=== PATIENT | male | born 1950 | race Caucasian/White ===

== ENCOUNTER 2017-04-23 13:14 | Observation (INO) | payer MEDICARE, MEDICAID ==
[2017-04-23 13:40] LABS: CHLORIDE,CL 106 mEq/L (98-106); SODIUM,NA 143 mEq/L (136-145)
--- NOTE | 2017-04-23 13:41 | EDM.PDOC ---
ED HPI GENERAL MEDICAL PROBLEM - General Chief Complaint: Neuro Symptoms/Deficits Stated Complaint: seizure activity Time Seen by Provider: 04/23/17 13:20 Source of Information: Reports: Patient, Family History Limitations: Reports: Altered Mental Status - History of Present Illness INITIAL COMMENTS - FREE TEXT/NARRATIVE: Patient presents today per EMS after a seizure at home. states he was in the bathroom brushing his teeth and when she hollered to him to see if he was ready to go to therapy, he didn't respond. When she got to the bathroom, he had a blank stare and didn't respond. She lowered him to the floor and he had a tonic clonic 4 minute seizure. On EMS arrival, he remained unresponsive, jaw was clenched. Sats were in the 80s. A nasal airway was inserted and started on 15 liters of oxygen by mask. On arrival here, patient starting to arouse. Opens eyes and talks to me but is disoriented. Not aware of where he is at or what day or month it is. Does recognize and [id number] and nurse. relates he was taken off his Keppra a while ago by the neurologist as he did not feel it was needed anymore. Only complaint patient has at present, is that his tongue is numb. Onset: Today, Sudden Duration: Minutes: Location: Reports: Generalized Severity: Severe Associated Symptoms: Reports: Confusion, Weakness. Denies: Chest Pain, Cough, Nausea/Vomiting, Shortness of Breath Treatments [employer]: Reports: Oxygen - Related Data Allergies Allergy/AdvReac Type Severity Reaction Status Date / Time cephalexin Allergy Cannot Verified 04/23/17 14:01 Remember Home Meds: Home Meds Baclofen 5 mg PO BID 01/29/15 [History] Gabapentin [Neurontin] 300 mg PO BID 01/29/15 [History] Pantoprazole [ProTONIX] 40 mg PO ACBREAKFAST 01/29/15 [History] atorvaSTATin [Lipitor] 40 mg PO DAILY 01/29/15 [History] tiZANidine [Zanaflex] 4 mg PO BEDTIME 01/29/15 [History] traMADol HCl [Tramadol HCl] 50 mg PO BID PRN 01/29/15 [History] Ondansetron [Ondansetron ODT] 4 mg TOP Q4H PRN 03/01/15 [History] Albuterol [Proair HFA] 2 puff INH QID 10/18/15 [History] Ipratropium/Albuterol Sulfate [Iprat-Albut 0.5-3(2.5) MG/3 ML] 3 ml INH QID PRN 10/18/15 [History] Potassium Chloride 10 meq PO DAILY 10/18/15 [History] Sertraline HCl 75 mg PO BEDTIME 10/18/15 [History] levETIRAcetam [Levetiracetam] 500 mg PO BID 10/18/15 [History] Tamsulosin HCl [Flomax] 0.4 mg PO DAILY #7 cap.er.24h 10/31/15 [Rx] oxyCODONE HCl/Acetaminophen [Percocet 5-325 mg Tablet] 1 each PO Q6H PRN #30 tablet 10/31/15 [Rx] Past Medical History Respiratory History: Reports: Pneumonia, Recurrent Gastrointestinal History: Reports: GERD Other Musculoskeletal History: 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 Social & Family History - Family History Family Medical History: Noncontributory - Tobacco Use Smoking Status *Q: Former Smoker Years of Tobacco use: 40 Second Hand Smoke Exposure: No - Recreational Drug Use Recreational Drug Use: No ED ROS GENERAL - Review of Systems Review Of Systems: See Below Constitutional: Reports: Weakness. Denies: Fever HEENT: Reports: Other (tongue numbness). Denies: Ear Discharge, Ear Pain, Rhinitis, Sinus Problem, Throat Pain Respiratory: Denies: Shortness of Breath, Pleuritic Chest Pain, Cough Cardiovascular: Denies: Chest Pain, Edema, Lightheadedness Endocrine: Reports: Fatigue GI/Abdominal: Denies: Abdominal Pain, Nausea, Vomiting : Denies: Incontinence Musculoskeletal: Reports: No Symptoms Skin: Reports: No Symptoms Neurological: Reports: Confusion - Physical Exam Exam: See Below Exam Limited By: Altered Mental Status (initially patient groggy and disoriented but now answering questions.) General Appearance: Lethargic (patient doing better as time goes on in the ER) Eye Exam: Bilateral Eye: EOMI, PERRL Ears: Normal External Exam, Normal TMs Nose: Normal Inspection, Normal Mucosa, No Blood Throat/Mouth: Normal Inspection, Other (bruising/reddened areas noted to tip of tongue) Head Exam: Normocephalic Neck: Normal Inspection, Supple, Non-Tender Respiratory/Chest: No Respiratory Distress, Lungs Clear, Normal Breath Sounds Cardiovascular: Regular Rate, Rhythm GI/Abdominal: Normal Bowel Sounds, Soft, Non-Tender Neuro Exam (Abbreviated): Other (patient has previous deficits with right sided weakness due to previous CVA) Skin Exam: Warm, Dry Course - Vital Signs Last Recorded V/S: Last Vital Signs Temp 97.5 F 04/23/17 13:44 Pulse 72 04/23/17 13:44 Resp 20 04/23/17 13:44 BP 114/74 04/23/17 13:44 Pulse Ox 94 L 04/23/17 13:44 - Orders/Labs/Meds Orders: Active Orders 24 hr Category Date Time Status Head wo Cont [CT] Routine Exams 04/23/17 Ordered Labs: Laboratory Tests 04/23/17 04/23/17 04/23/17 Range/Units 13:13 13:13 13:25 WBC 10.7 H (5.0-10.0) 10^3/uL RBC 5.20 (4.50-6.00) 10^6/uL Hgb 15.5 (14.0-18.0) g/dL Hct 48.9 (40.0-54.0) % MCV 94.0 (82.0-94.0) fL MCH 29.8 (27.0-32.0) pg MCHC 31.7 L (33.0-38.0) g/dL RDW Coeff of [place] 13.5 (11.0-15.0) % Plt Count 246 (150-400) 10^3/uL Neut % (Auto) 58.7 (35-85) % Lymph % (Auto) 25.4 (10-55) % [place] % (Auto) 11.5 (0-16) % Eos % (Auto) 3.8 (0-5) % Baso % (Auto) 0.6 (0-3) % Neut # (Auto) 6.30 (1.80-7.00) 10^3/uL Lymph # (Auto) 2.72 (1.00-4.80) 10^3/uL [place] # (Auto) 1.23 H (0.00-0.80) 10^3/uL Eos # (Auto) 0.41 (0.00-0.45) 10^3/uL Baso # (Auto) 0.06 10^3/uL PT 10.7 (9.7-12.3) SEC INR 0.99 (0.92-1.18) APTT 24.2 L (24.5-30.9) SEC Sodium 143 (136-145) mEq/L Potassium 3.9 (3.5-5.0) mEq/L Chloride 106 (98-106) mEq/L Carbon Dioxide 22 (21-32) mmol/L BUN 15 (7-18) mg/dL Creatinine 1.4 H (0.7-1.3) mg/dL Est Cr Clr Drug Dosing 53.28 mL/min Estimated GFR (MDRD) 51 L (>=60) mL/min Glucose 90 (75-99) mg/dL Calcium 8.8 (8.4-10.1) mg/dL Creatine Kinase 69 (35-232) U/L Troponin I < 0.017 (0.00-0.06) ng/mL - Re-Assessments/Exams Free Text/Narrative Re-Assessment/Exam: 04/23/17 14:09 Lab results are negative. Awaiting CT report. Will admit observation, start him back on Keppra. Give him one dose of Valium IV to prevent further seizure activity. Departure - Departure Time of Disposition: 14:14 Disposition: Refer to Observation Condition: Fair Clinical Impression: Seizure - Discharge Information Forms: ED Department Discharge - Problem List & Annotations (1) Seizure SNOMED Code(s): 51675988 Code(s): R56.9 - UNSPECIFIED CONVULSIONS Status: Acute Priority: High Current Visit: Yes (2) COPD (chronic obstructive pulmonary disease) SNOMED Code(s): 43557357 Code(s): J44.9 - CHRONIC OBSTRUCTIVE PULMONARY DISEASE, UNSPECIFIED Status : Chronic Priority: Low Current Visit: Yes Qualifiers: COPD type: COPD with acute exacerbation Qualified Code(s): J44.1 - Chronic obstructive pulmonary disease with (acute) exacerbation (3) Status post stroke SNOMED Code(s): 233303701 Code(s): Z86.73 - PRSNL HX OF TIA (TIA), AND CEREB INFRC W/O RESID DEFICITS Status: Chronic Priority: Medium Current Visit: Yes - Problem List Review Problem List Initiated/Reviewed/Updated: Yes - My Orders Last 24 Hours: My Active Orders 04/23/17 Head wo Cont [CT] Routine - Assessment/Plan Admission H&P: Please use this note as an admission H&P Last 24 Hours: My Active Orders 04/23/17 Head wo Cont [CT] Routine Assessment:: Acute seizure activity Plan: Admitted to observation to Dr. Hunter for neurological monitoring. Will start him back on his Keppra, give him a dose of IV Valium. Continue to follow.
[2017-04-23] MEDS: levETIRAcetam 500 MG Tab PO SCH ×2 (15:09→20:18)
[2017-04-23] MEDS ORDERED: Sodium Chloride 0.9% 10 ML Syringe FLUSH PRN (16:11)
[2017-04-23] MEDS ORDERED: Ondansetron 4 MG Tab.DIS PO PRN (16:11)
[2017-04-23] MEDS ORDERED: traMADol 50 MG Tab PO PRN (18:30)
[2017-04-23] MEDS ORDERED: Albuterol/Ipratropium 3.0-0.5 MG/3 ML Neb Soln INH PRN (18:30)
[2017-04-23] MEDS ORDERED: Acetaminophen/oxyCODONE 325-5 MG Tab PO PRN (18:30)
[2017-04-23] MEDS ORDERED: Albuterol 8 GM Inhaler INH PRN (18:30)
[2017-04-23] MEDS ORDERED: tiZANidine 4 MG Tab PO SCH (20:00)
[2017-04-23] MEDS ORDERED: Sertraline 25 MG Tab PO SCH (20:00)
[2017-04-23] MEDS: Gabapentin 100 MG Cap PO SCH (20:15)
[2017-04-23] MEDS: Baclofen 10 MG Tab PO SCH (20:16)
[2017-04-24] MEDS ORDERED: Pantoprazole 40 MG Tab.CR PO SCH (07:00)
[2017-04-24] MEDS ORDERED: Formoterol/Mometasone 200-5 MCG 8.8 GM Inhaler IH SCH (08:00)
[2017-04-24] MEDS ORDERED: atorvaSTATin 20 MG Tab PO SCH (08:00)
[2017-04-24] MEDS ORDERED: Polyethylene Glycol 3350 Powder 17 GM Packet PO SCH (08:00)
[2017-04-24 08:18] VITALS: BP 119/81
[2017-04-24] MEDS: levETIRAcetam 500 MG Tab PO SCH (08:28)
[2017-04-24] MEDS: Baclofen 10 MG Tab PO SCH (08:29)
[2017-04-24] MEDS: Gabapentin 100 MG Cap PO SCH (08:30)
[2017-04-24] MEDS ORDERED: FLU Vacc QS 2017-18 (36mos UP)/PF 60 MCG/0.5 ML Syringe IM ONE (08:44)
--- NOTE | 2017-04-26 20:04 | PCM.DCSUM1 ---
Discharge Summary - Hospital Course Free Text/Narrative:: Patient admitted to observation after a grand mal seizure that occurred at home. Patient has a history of seizure activity. Previously on Keppra but had weaning off of it as relates that the neurologist did not feel patient would need to be on it any longer. He had taken his last Keppra one week ago. related that he had been in the bathroom getting ready to go to [facility] for therapy. She called to him and got no response. When she arrived in the bathroom, he had a blank stare. Was able to lower him to the ground and he had 4-5 minutes of tonic clonic activity. Patient postictal on arrival to the ED. Labs negative, CT negative. Given Valium 5 mg IV and admitted for neurological monitoring. Started back on Keppra. - Discharge Data Discharge Date: 04/24/17 Discharge Disposition: Home, Self-Care 01 Condition: Good - Discharge Diagnosis/Problem(s) (1) Seizure SNOMED Code(s): 12250692 ICD Code: R56.9 - UNSPECIFIED CONVULSIONS Status: Acute Priority: High (2) COPD (chronic obstructive pulmonary disease) SNOMED Code(s): 72883654 ICD Code: J44.9 - CHRONIC OBSTRUCTIVE PULMONARY DISEASE, UNSPECIFIED Status : Chronic Priority: Low Qualifiers: COPD type: COPD with acute exacerbation Qualified Code(s): J44.1 - Chronic obstructive pulmonary disease with (acute) exacerbation (3) Status post stroke SNOMED Code(s): 193327525 ICD Code: Z86.73 - PRSNL HX OF TIA (TIA), AND CEREB INFRC W/O RESID DEFICITS Status: Chronic Priority: Medium - Patient Summary/Data Complications: none Hospital Course: Patient has no recall of events at home or in the ER but is feeling good this am. Did bite his tongue and states it is sore now. Otherwise, denies any new concerns today. Neuro checks have been stable in comparison to his normal, history of previous CVA. Will continue on Keppra, discharge home today. - Patient Instructions Diet: Usual Diet as Tolerated Activity: As Tolerated - Discharge Plan Prescriptions/Med Rec: levETIRAcetam [Keppra] 500 mg PO BID #60 tablet Home Medications: Home Meds Baclofen 5 mg PO BID 01/29/15 [History] Gabapentin [Neurontin] 200 mg PO BID 01/29/15 [History] Pantoprazole [ProTONIX] 40 mg PO ACBREAKFAST 01/29/15 [History] atorvaSTATin [Lipitor] 40 mg PO DAILY 01/29/15 [History] tiZANidine [Zanaflex] 4 mg PO BEDTIME 01/29/15 [History] traMADol HCl [Tramadol HCl] 50 mg PO BID PRN 01/29/15 [History] Ondansetron [Ondansetron ODT] 4 mg TOP Q4H PRN 03/01/15 [History] Ipratropium/Albuterol Sulfate [Iprat-Albut 0.5-3(2.5) MG/3 ML] 3 ml INH QID PRN 10/18/15 [History] Sertraline HCl 75 mg PO BEDTIME 10/18/15 [History] oxyCODONE HCl/Acetaminophen [Percocet 5-325 mg Tablet] 1 each PO Q6H PRN #30 tablet 10/31/15 [Rx] Albuterol [Ventolin HFA] 2 inh INH Q4H PRN 04/23/17 [History] Fluticasone/Vilanterol [Breo Ellipta 200-25 MCG Inhalation Kit] 1 inh INH DAILY 04/23/17 [History] Polyethylene Glycol 3350 [Miralax] 8 gm PO DAILY 04/23/17 [History] levETIRAcetam [Keppra] 500 mg PO BID #60 tablet 04/24/17 [Rx] Forms: ED Department Discharge Referrals: Deshawn Hunter MD [Primary Care Provider] - - Discharge Summary/Plan Comment DC Time >30 min.: No Discharge Summary/Plan Comment: Discharge home on Keppra 500 mg twice a day. Follow up with Dr. Hunter in one week. Continue PT as outpatient as previously planned. - General Info Date of Service: 04/24/17 Admission Dx/Problem (Free Text: Seizure Functional Status: Reports: Pain Controlled, Tolerating Diet, Ambulating - Review of Systems General: Reports: Weakness HEENT: Reports: No Symptoms Pulmonary: Denies: Shortness of Breath, Cough Cardiovascular: Denies: Chest Pain, Edema, Lightheadedness Gastrointestinal: Denies: Abdominal Pain, Nausea, Vomiting Genitourinary: Reports: No Symptoms Musculoskeletal: Reports: Other (chronic weakness due to past CVA) - Patient Data Vitals - Most Recent: Last Vital Signs Temp 97.2 F 04/24/17 08:00 Pulse 75 04/24/17 08:00 Resp 19 04/24/17 08:00 BP 119/81 04/24/17 08:00 Pulse Ox 93 L 04/24/17 08:00 Weight - Most Recent: 160 lb Med Orders - Current: Current Medications Discontinued Medications Albuterol (Ventolin Hfa) 0 gm INH Q4H PRN PRN Reason: Shortness of Breath Albuterol/Ipratropium (Duoneb 3.0-0.5 Mg/3 Ml) 3 ml INH QID PRN PRN Reason: Shortness of Breath Atorvastatin Calcium (Lipitor) 40 mg PO DAILY [facility] Last Admin: 04/24/17 08:29 Dose: Not Given Baclofen (Lioresal) 5 mg PO BID [facility] Last Admin: 04/24/17 08:29 Dose: Not Given Diazepam (Valium) 5 mg IVPUSH ONETIME ONE Stop: 04/23/17 14:11 Last Admin: 04/23/17 14:30 Dose: 5 mg Gabapentin (Neurontin) 200 mg PO BID [facility] Last Admin: 04/24/17 08:30 Dose: Not Given Influenza Virus Vaccine (Fluzone Quad [id number]) 60 mcg IM .ONCE ONE Stop: 04/24/17 08:45 Last Admin: 04/24/17 09:40 Dose: 60 mcg Levetiracetam (Keppra) 500 mg PO BID [facility] Last Admin: 04/24/17 08:28 Dose: Not Given Mometasone Furoate/Formoterol Fumar (Dulera 200-5 Mcg) 0 puff IH BIDRT [facility] Last Admin: 04/24/17 08:27 Dose: Not Given Ondansetron HCl (Zofran Odt) 4 mg PO Q4H PRN PRN Reason: nausea, able to take PO Oxycodone/Acetaminophen (Percocet 325-5 Mg) 1 tab PO Q6H PRN PRN Reason: Pain Pantoprazole Sodium (Protonix) 40 mg PO ACBREAKFAST [facility] Last Admin: 04/24/17 08:27 Dose: Not Given Polyethylene Glycol (Miralax) 8 gm PO DAILY [facility] Last Admin: 04/24/17 08:30 Dose: Not Given Sertraline HCl (Zoloft) 75 mg PO BEDTIME [facility] Last Admin: 04/23/17 20:19 Dose: 75 mg Sodium Chloride (Saline Flush) 10 ml FLUSH ASDIRECTED PRN PRN Reason: Keep Vein Open Tizanidine HCl (Zanaflex) 4 mg PO BEDTIME [facility] Last Admin: 04/23/17 20:18 Dose: 4 mg Tramadol HCl (Ultram) 50 mg PO BID PRN PRN Reason: Pain - Exam General: Reports: Alert, Oriented HEENT: Reports: Mucous Membr. Moist/[place] Neck: Reports: Supple Lungs: Reports: Clear to Auscultation, Normal Respiratory Effort Cardiovascular: Reports: Regular Rate, Regular Rhythm GI/Abdominal Exam: Normal Bowel Sounds, Soft, Non-Tender Skin: Reports: Warm, Dry Neurological: Reports: No New Focal Deficit *Q Meaningful Use (DIS) - VTE *Q VTE Criteria *Q: - Stroke *Q Stroke Criteria *Q: - AMI *Q AMI Criteria *Q:
== END 2017-04-24 10:20 | disposition home or self-care (01) ==
LOC: CC.ED 13:14 → UNDOADMOB 14:08 → CC.MS 14:08
PROVIDERS: ADMIT Physician Assistant Medical; ATTEND Family Medicine
DX: R56.9 Unspecified convulsions (principal); J44.1 Chronic obstructive pulmonary disease with (acute) exacerbation; K21.9 Gastro-esophageal reflux disease without esophagitis; I69.354 Hemiplegia and hemiparesis following cerebral infarction affecting left non-dominant side; Z79.899 Other long term (current) drug therapy; Z79.51 Long term (current) use of inhaled steroids; Z88.1 Allergy status to other antibiotic agents; Z87.891 Personal history of nicotine dependence; Z23 Encounter for immunization
CPT/HCPCS: 36415; 70450; 80048; 82550; 84484; 85025; 85610; 85730; 93005; 93010; 96374; 99217; 99220; 99285; A9270; G0378; J3360; 90686; G0008

== ENCOUNTER 2017-08-28 11:30 | Emergency (ER) | payer MEDICARE, MEDICAID ==
[~2017-08-28 11:30] MED LIST: Albuterol/Ipratropium 3.0-0.5 MG/3 ML Neb Soln ONE
[2017-08-28] MEDS ORDERED: Albuterol/Ipratropium 3.0-0.5 MG/3 ML Neb Soln INH ONE (11:31)
[2017-08-28] MEDS ORDERED: Racepinephrine 2.25% 0.5 ML Neb Soln INH ONE (11:31)
[2017-08-28] MEDS ORDERED: Racepinephrine 2.25% 0.5 ML Neb Soln ONE ×2 (11:33→11:56)
[2017-08-28] MEDS ORDERED: Albuterol/Ipratropium 3.0-0.5 MG/3 ML Neb Soln ONE ×3 (11:36→12:13)
[2017-08-28] MEDS ORDERED: Sodium Chloride 0.9% 1,000 ML ONE ×2 (11:48→11:49)
[2017-08-28 11:53] LABS: O2 DELIVERY DEVICE NON REBR MASK
[2017-08-28] MEDS: Sodium Chloride 0.9% 500 ML IV SCH ×2 (12:00→13:00)
[2017-08-28] MEDS ORDERED: Piperacillin/Tazobactam 3.375 GM in Sodium Chloride 0.9% 50 ML IV SCH (12:00)
[2017-08-28 12:10] LABS: CHLORIDE,CL 105 mEq/L (98-106); SODIUM,NA 143 mEq/L (136-145)
[2017-08-28 12:11] LABS: BICARBONATE,ARTERIAL 25.9 mm/L (22.0-26.0); O2 SATURATION ARTERIAL 93 % (95-98); PCO2 ARTERIAL 70 mm/Hg0 (35-45); PO2 ARTERIAL 85 mm/Hg (80-100)
--- NOTE | 2017-08-28 12:41 | EDM.PDOC ---
ED HPI GENERAL MEDICAL PROBLEM - General Chief Complaint: General Stated Complaint: code Time Seen by Provider: 08/28/17 11:30 Source of Information: Reports: EMS, Family History Limitations: Reports: Respiratory Distress - History of Present Illness INITIAL COMMENTS - FREE TEXT/NARRATIVE: Damion is a 67 year old male with PMH of asthma, depression, GERD, CVA, hypertension, and hyperlipidemia who presents to the ED via [facility] after suspected respiratory arrest. His reports he has had some respiratory issues since about Thursday. She reports they were in to the clinic yesterday and he was started on Cipro, steroids, and nebulizers. She reports that at baseline he uses his inhaler for asthma once weekly. She reports he has been more wheezy than normal and has had a productive cough. He has been using his nebulizers three times daily the past few days. He has not had a fever, chills, chest pain, sore throat. He has had a productive cough. Denies any smoking history. reports that this morning he got progressively worse. She reports he was more wheezy and began struggling to breathe. She reports she called the clinic and all of a sudden Damion became unresponsive and "blue." She reports he was not breathing at all so she started CPR and called 911. Upon EMS arrival, patient was very cyanotic, but did have a pulse. O2 sats upon arrival were 80%. He did receive 2 Duonebs and 125 mg Solumedrol enroute with EMS. Upon initial ED presentation he appears in respiratory distress. He is maintaining O2 sat of 90% on 15 L nonrebreather. He has accessory muscle use and audible wheezing. Onset: Today, Sudden Onset Date: 08/28/17 Onset Time: 10:45 Duration: Getting Worse Associated Symptoms: Reports: Chest Pain, Cough, cough w sputum, Diaphoresis, Headaches, Nausea/Vomiting, Shortness of Breath, Weakness. 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: See EMS Report - Related Data Allergies Allergy/AdvReac Type Severity Reaction Status Date / Time cephalexin Allergy Cannot Verified 04/23/17 14:01 Remember Home Meds: Home Meds Baclofen 5 mg PO BID 01/29/15 [History] Gabapentin [Neurontin] 200 mg PO BID 01/29/15 [History] Pantoprazole [ProTONIX] 40 mg PO ACBREAKFAST 01/29/15 [History] atorvaSTATin [Lipitor] 40 mg PO DAILY 01/29/15 [History] tiZANidine [Zanaflex] 4 mg PO BEDTIME 01/29/15 [History] traMADol HCl [Tramadol HCl] 50 mg PO BID PRN 01/29/15 [History] Ondansetron [Ondansetron ODT] 4 mg TOP Q4H PRN 03/01/15 [History] Ipratropium/Albuterol Sulfate [Iprat-Albut 0.5-3(2.5) MG/3 ML] 3 ml INH QID PRN 10/18/15 [History] Sertraline HCl 75 mg PO BEDTIME 10/18/15 [History] oxyCODONE HCl/Acetaminophen [Percocet 5-325 mg Tablet] 1 each PO Q6H PRN #30 tablet 10/31/15 [Rx] Albuterol [Ventolin HFA] 2 inh INH Q4H PRN 04/23/17 [History] Fluticasone/Vilanterol [Breo Ellipta 200-25 MCG Inhalation Kit] 1 inh INH DAILY 04/23/17 [History] Polyethylene Glycol 3350 [Miralax] 8 gm PO DAILY 04/23/17 [History] levETIRAcetam [Keppra] 500 mg PO BID #60 tablet 04/24/17 [Rx] Past Medical History Respiratory History: Reports: Pneumonia, Recurrent Gastrointestinal History: Reports: GERD Other Musculoskeletal History: 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 Social & Family History - Family History Family Medical History: Noncontributory - Caffeine Use Caffeine Use: Reports: None ED ROS GENERAL - Review of Systems Review Of Systems: See Below Constitutional: Reports: Fatigue, Diaphoresis. Denies: Fever, Chills, Weakness HEENT: Reports: No Symptoms. Denies: Ear Pain, Rhinitis, Sinus Problem, Throat Pain, Throat Swelling Respiratory: Reports: Shortness of Breath, Wheezing, Pleuritic Chest Pain, Cough , Sputum, Other (respiratory distress, tachypnea). Denies: Hemoptysis Cardiovascular: Reports: Dyspnea on Exertion, Orthopnea. Denies: Chest Pain, Edema, Lightheadedness, Palpitations, Syncope Endocrine: Reports: No Symptoms GI/Abdominal: Reports: Decreased Appetite, Nausea, Vomiting. Denies: Abdominal Pain, Constipation, Diarrhea, Hematemesis : Reports: No Symptoms. Denies: Frequency, Urgency Musculoskeletal: Reports: No Symptoms Skin: Reports: Diaphoresis Neurological: Reports: Confusion, Headache, Weakness. Denies: Dizziness, Numbness, Syncope, Tingling Psychiatric: Reports: No Symptoms Hematologic/Lymphatic: Reports: No Symptoms Immunologic: Reports: No Symptoms ED EXAM, GENERAL - Physical Exam Exam: See Below Exam Limited By: Respiratory Distress General Appearance: Alert, Anxious, Severe Distress Eye Exam: Bilateral Eye: EOMI, Normal Fundi, Normal Inspection, PERRL Nose: Nasal Flaring Throat/Mouth: Normal Inspection, Normal Lips, Normal Teeth, Normal Gums, Normal Oropharynx, Normal Voice, No Airway Compromise Head: Atraumatic, Normocephalic Neck: Normal Inspection, Supple, Non-Tender, Full Range of Motion Respiratory/Chest: Respiratory Distress, Decreased Breath Sounds, Crackles, Wheezing, Accessory Muscle Use, Retractions Cardiovascular: Normal Peripheral Pulses, No Edema, No Murmur, Tachycardia GI/Abdominal: Normal Bowel Sounds, Soft, Non-Tender, No Organomegaly, No Distention, No Abnormal Bruit, No Mass Extremities: Normal Inspection, Normal Range of Motion, Non-Tender, Normal Capillary Refill, No Pedal Edema Neurological: Alert, Oriented Psychiatric: Anxious Skin Exam: Intact, Diaphoretic Lymphatic: No Adenopathy Course - Orders/Labs/Meds Labs: Laboratory Tests 08/28/17 08/28/17 08/28/17 Range/Units 11:40 11:40 11:40 WBC 17.5 H (5.0-10.0) 10^3/uL RBC 5.01 (4.50-6.00) 10^6/uL Hgb 14.9 (14.0-18.0) g/dL Hct 47.0 (40.0-54.0) % MCV 93.8 (82.0-94.0) fL MCH 29.7 (27.0-32.0) pg MCHC 31.7 L (33.0-38.0) g/dL RDW Coeff of Felecia 13.7 (11.0-15.0) % Plt Count 247 (150-400) 10^3/uL Neut % (Auto) 70.7 (35-85) % Lymph % (Auto) 15.0 (10-55) % [place] % (Auto) 10.6 (0-16) % Eos % (Auto) 3.4 (0-5) % Baso % (Auto) 0.3 (0-3) % Neut # (Auto) 12.37 H (1.80-7.00) 10^3/uL Lymph # (Auto) 2.63 (1.00-4.80) 10^3/uL [place] # (Auto) 1.86 H (0.00-0.80) 10^3/uL Eos # (Auto) 0.60 H (0.00-0.45) 10^3/uL Baso # (Auto) 0.05 10^3/uL D-Dimer, Quantitative 2.29 H (0.00-0.50) ABG pH (7.35-7.45) ABG pCO2 (35-45) mm/Hg0 ABG pO2 (80-100) mm/Hg ABG HCO3 (22.0-26.0) mm/L ABG O2 Saturation (95-98) % ABG Base Excess (-2.0-3.0) O2 Delivery Device Oxygen Flow Rate Sodium 143 (136-145) mEq/L Potassium 3.9 (3.5-5.0) mEq/L Chloride 105 (98-106) mEq/L Carbon Dioxide 25 (21-32) mmol/L BUN 18 (7-18) mg/dL Creatinine 1.3 (0.7-1.3) mg/dL Est Cr Clr Drug Dosing TNP Estimated GFR (MDRD) 55 L (>=60) mL/min Glucose 147 H D (75-99) mg/dL Calcium 8.6 (8.4-10.1) mg/dL Total Bilirubin 0.8 (0.0-1.0) mg/dL AST 78 H (15-37) U/L ALT 134 H (12-78) U/L Alkaline Phosphatase 102 (46-116) U/L Lactate Dehydrogenase 367 H (100-190) U/L Creatine Kinase 134 (35-232) U/L Troponin I < 0.017 (0.00-0.06) ng/mL C-Reactive Protein 2.2 H (0.2-0.8) mg/dL NT-Pro-B Natriuret Pep 32 (0-1000) pg/mL Total Protein 7.4 (6.4-8.2) g/dL Albumin 3.8 (3.4-5.0) g/dL 08/28/17 Range/Units 11:51 WBC (5.0-10.0) 10^3/uL RBC (4.50-6.00) 10^6/uL Hgb (14.0-18.0) g/dL Hct (40.0-54.0) % MCV (82.0-94.0) fL MCH (27.0-32.0) pg MCHC (33.0-38.0) g/dL RDW Coeff of Felecia (11.0-15.0) % Plt Count (150-400) 10^3/uL Neut % (Auto) (35-85) % Lymph % (Auto) (10-55) % [place] % (Auto) (0-16) % Eos % (Auto) (0-5) % Baso % (Auto) (0-3) % Neut # (Auto) (1.80-7.00) 10^3/uL Lymph # (Auto) (1.00-4.80) 10^3/uL [place] # (Auto) (0.00-0.80) 10^3/uL Eos # (Auto) (0.00-0.45) 10^3/uL Baso # (Auto) 10^3/uL D-Dimer, Quantitative (0.00-0.50) ABG pH 7.17 L (7.35-7.45) ABG pCO2 70 H (35-45) mm/Hg0 ABG pO2 85 (80-100) mm/Hg ABG HCO3 25.9 (22.0-26.0) mm/L ABG O2 Saturation 93 L (95-98) % ABG Base Excess -3.0 L (-2.0-3.0) O2 Delivery Device Non rebr mask Oxygen Flow Rate 10.0 Sodium (136-145) mEq/L Potassium (3.5-5.0) mEq/L Chloride (98-106) mEq/L Carbon Dioxide (21-32) mmol/L BUN (7-18) mg/dL Creatinine (0.7-1.3) mg/dL Est Cr Clr Drug Dosing Estimated GFR (MDRD) (>=60) mL/min Glucose (75-99) mg/dL Calcium (8.4-10.1) mg/dL Total Bilirubin (0.0-1.0) mg/dL AST (15-37) U/L ALT (12-78) U/L Alkaline Phosphatase (46-116) U/L Lactate Dehydrogenase (100-190) U/L Creatine Kinase (35-232) U/L Troponin I (0.00-0.06) ng/mL C-Reactive Protein (0.2-0.8) mg/dL NT-Pro-B Natriuret Pep (0-1000) pg/mL Total Protein (6.4-8.2) g/dL Albumin (3.4-5.0) g/dL Meds: Medications Discontinued Medications Generic Name Dose Route Start Last Admin Trade Name Canq PRN Reason Stop Dose Admin Albuterol/Ipratropium Confirm 08/28/17 11:25 08/28/17 12:52 Duoneb 3.0-0.5 Mg/3 Ml Administered 08/28/17 11:26 Not Given Dose 3 ml .ROUTE .STK-MED ONE Albuterol/Ipratropium Confirm 08/28/17 11:36 08/28/17 12:51 Duoneb 3.0-0.5 Mg/3 Ml Administered 08/28/17 11:37 Not Given Dose 3 ml .ROUTE .STK-MED ONE Albuterol/Ipratropium Confirm 08/28/17 11:43 08/28/17 12:51 Duoneb 3.0-0.5 Mg/3 Ml Administered 08/28/17 11:44 Not Given Dose 3 ml .ROUTE .STK-MED ONE Albuterol/Ipratropium Confirm 08/28/17 12:13 08/28/17 12:51 Duoneb 3.0-0.5 Mg/3 Ml Administered 08/28/17 12:14 Not Given Dose 3 ml .ROUTE .STK-MED ONE Albuterol/Ipratropium 3 ml 08/28/17 12:56 08/28/17 11:35 Duoneb 3.0-0.5 Mg/3 Ml NEB 3 ml ASDIRECTED PRN Administration Dyspnea Albuterol/Ipratropium 27 ml 08/28/17 11:31 Duoneb 3.0-0.5 Mg/3 Ml INH 08/28/17 11:32 .STK-MED ONE Piperacillin Sod/Tazobactam 50 mls @ 100 mls/hr 08/28/17 12:00 08/28/17 12:20 Sod 3.375 gm/ Sodium Chloride IV 100 mls/hr Q6H HIRAM Administration Vancomycin HCl 2 gm/ Sodium 250 mls @ 167 mls/hr 08/28/17 11:56 08/28/17 12: 20 Chloride IV 08/28/17 13:25 167 mls/hr ONETIME ONE Administration Sodium Chloride 500 mls @ 500 mls/hr 08/28/17 12:00 08/28/17 13:00 Normal Saline IV 500 mls/hr .BOLUS HIRAM Administration Sodium Chloride Confirm 08/28/17 11:48 08/28/17 12:51 Normal Saline Administered 08/28/17 11:49 Not Given Dose 1,000 mls @ as directed .ROUTE .STK-MED ONE Sodium Chloride Confirm 08/28/17 11:49 08/28/17 12:51 Normal Saline Administered 08/28/17 11:50 Not Given Dose 1,000 mls @ as directed .ROUTE .STK-MED ONE Racepinephrine Confirm 08/28/17 11:33 08/28/17 12:51 S-2 2.25% Administered 08/28/17 11:34 Not Given Dose 0.5 ml .ROUTE .STK-MED ONE Racepinephrine Confirm 08/28/17 11:56 08/28/17 12:51 S-2 2.25% Administered 08/28/17 11:57 Not Given Dose 0.5 ml .ROUTE .STK-MED ONE Racepinephrine 0.5 ml 08/28/17 12:55 08/28/17 11:40 S-2 2.25% NEB 0.5 ml ASDIRECTED PRN Administration Shortness of Breath Racepinephrine 1 ml 08/28/17 11:31 S-2 2.25% INH 08/28/17 11:32 .STK-MED ONE Sodium Chloride 2,000 ml 08/28/17 11:31 Normal Saline IV 08/28/17 11:32 .STK-MED ONE - Re-Assessments/Exams Free Text/Narrative Re-Assessment/Exam: Patient comes in in severe respiratory distress. He did receive 125 mg solumedrol and a Duoneb enroute with EMS. Patient on 15 L O2 via nonrebreather throughout stay. Patient was given continuous Duonebs as well as multiple doses of racemic epinephrine. We did attempt CPAP for a short time, but patient decompensated so 15 L O2 and continuous Duonebs were restarted. Throughout entire ED stay, patient was alert and oriented. He was given NS fluid bolus 500 mL x2. He also recieved doses of Vancomycin and Zosyn. [facility] provider called for accepting physician and [facility]. Dr. Marie (Hospitalist at [facility]) accepted patient for transfer. Chest Xray reveals no acute processes. [facility] was consulted. Please see their documentation as well for further clarification on timing of interventions and accepting provider. Labs show significant leukocytosis of 17.5. ABGs reveal pH 7.17, pCO2 70.3, pO2 85, bicarb 25.9. Troponin is negative. D-dimer is elevated. No hx of DVT or PE. Patient not stable enough for CT scan during stay. Given presentation, I do not feel PE is cause of respiratory distress. Risks and benefits of transfer were discussed with patient and . Risks of transfer include worsening of condition, , and helicopter crash enroute. Benefits of transfer include higher level of care and intensive care unit if needed. Risks of nontransfer include worsening of condition, , and nonspecialized care. Benfits of nontransfer include familiar environment, close to home, and convenience. Patient and voiced understanding and were agreeable to transfer via [facility]. Departure - Departure Time of Disposition: 13:00 Disposition: DC/Tfer to Acute Hospital 02 Condition: Serious Clinical Impression: Elevated d-dimer, Acute respiratory acidosis, Acute respiratory failure Asthma exacerbation Qualifiers: Asthma severity: severe Asthma persistence: unspecified Qualified Code(s): J45.901 - Unspecified asthma with (acute) exacerbation Leukocytosis Qualifiers: Leukocytosis type: unspecified Qualified Code(s): D72.829 - Elevated white blood cell count, unspecified - Discharge Information Referrals: Deshawn Hnuter MD [Primary Care Provider] - Forms: ED Department Discharge - Problem List & Annotations (1) Asthma exacerbation SNOMED Code(s): 180270635 Code(s): J45.901 - UNSPECIFIED ASTHMA WITH (ACUTE) EXACERBATION Status: Acute Qualifiers: Asthma severity: severe Asthma persistence: unspecified Qualified Code(s) : J45.901 - Unspecified asthma with (acute) exacerbation (2) Acute respiratory acidosis SNOMED Code(s): 63267187 Code(s): E87.2 - ACIDOSIS Status: Acute (3) Elevated d-dimer SNOMED Code(s): 988902697 Code(s): R79.89 - OTHER SPECIFIED ABNORMAL FINDINGS OF BLOOD CHEMISTRY Status: Acute (4) Leukocytosis SNOMED Code(s): 193290694, 753970620 Code(s): D72.829 - ELEVATED WHITE BLOOD CELL COUNT, UNSPECIFIED Status: Acute Qualifiers: Leukocytosis type: unspecified Qualified Code(s): D72.829 - Elevated white blood cell count, unspecified (5) Acute respiratory failure SNOMED Code(s): 21156960 Code(s): J96.00 - ACUTE RESPIRATORY FAILURE, UNSP W HYPOXIA OR HYPERCAPNIA Status: Acute Qualifiers: Respiratory failure complication: hypoxia Qualified Code(s): J96.01 - Acute respiratory failure with hypoxia - Problem List Review Problem List Initiated/Reviewed/Updated: Yes - Assessment/Plan Plan: Patient will be transferred to [facility] via [facility]. Stable at time of discharge. Oxygenating well with continuous DuoNebs and 15 L NRB. Care resumed to Flight [facility].
[2017-08-28] MEDS ORDERED: Racepinephrine 2.25% 0.5 ML Neb Soln NEB PRN (12:55)
[2017-08-28] MEDS ORDERED: Albuterol/Ipratropium 3.0-0.5 MG/3 ML Neb Soln NEB PRN (12:56)
== END 2017-08-28 13:20 ==
LOC: CC.ED 11:30
DX: J96.00 Acute respiratory failure, unspecified whether with hypoxia or hypercapnia (principal); J45.901 Unspecified asthma with (acute) exacerbation; D72.829 Elevated white blood cell count, unspecified; R79.1 Abnormal coagulation profile; E87.2 Acidosis; Z79.899 Other long term (current) drug therapy; Z88.1 Allergy status to other antibiotic agents; Z87.01 Personal history of pneumonia (recurrent); K21.9 Gastro-esophageal reflux disease without esophagitis; Z86.73 Personal history of transient ischemic attack (TIA), and cerebral infarction without residual deficits
CPT/HCPCS: 36415; 36600; 71045; 80053; 82550; 82803; 83615; 83880; 84484; 85025; 85379; 86140; 87804; 93005; 94644; 94645; 96365; 99291; 99292; J2543; J3370; J7030; J7040; J7050

== ENCOUNTER 2018-07-20 14:32 | Observation (INO) | payer MEDICARE, MEDICAID ==
[2018-07-20] MEDS ORDERED: Levofloxacin/Dextrose 5%-Water 500 MG in Premix Bag 1 BAG IV ONE (14:53)
[2018-07-20] MEDS ORDERED: methylPREDNISolone Sodium Succinate 125 MG/2 ML SDV IVPUSH ONE (14:54)
[2018-07-20] MEDS ORDERED: Temazepam 15 MG Cap PO PRN (17:33)
[2018-07-20] MEDS ORDERED: Ondansetron 4 MG Tab.DIS PO PRN (17:33)
[2018-07-20] MEDS ORDERED: Acetaminophen 325 MG Tab PO PRN (17:33)
[2018-07-20] MEDS ORDERED: Ondansetron 4 MG/2 ML SDV IV PRN (17:33)
[2018-07-20] MEDS ORDERED: Sodium Chloride 0.9% 10 ML Syringe FLUSH PRN (17:33)
[2018-07-20] MEDS ORDERED: traMADol 50 MG Tab PO PRN (17:40)
[2018-07-20] MEDS ORDERED: Albuterol 8 GM Inhaler INH PRN (18:15)
[2018-07-20] MEDS: Pantoprazole 40 MG Vial IVPUSH SCH (18:29)
[2018-07-20] MEDS: Albuterol 0.083% 2.5 MG/3 ML Neb Soln NEB SCH ×3 (18:37→20:30)
[2018-07-20 18:38] LABS: CHLORIDE,CL 105 mEq/L (98-106); SODIUM,NA 140 mEq/L (136-145)
[2018-07-20] MEDS: BUDESONIDE INH SCH (20:17)
[2018-07-20] MEDS: [UNRECOGNIZED DRUG - OTHER] INH SCH (20:17)
[2018-07-20] MEDS: FORMOTEROL INH SCH (20:17)
[2018-07-20] MEDS: levETIRAcetam 500 MG Tab PO SCH (20:18)
[2018-07-20] MEDS: Baclofen 10 MG Tab PO SCH (20:19)
[2018-07-20] MEDS: Gabapentin 100 MG Cap PO SCH (20:20)
[2018-07-20] MEDS: [UNRECOGNIZED DRUG - OTHER] PO SCH (20:21)
[2018-07-20] MEDS: tiZANidine 4 MG Tab PO SCH (20:23)
[2018-07-20] MEDS: Enoxaparin 40 MG/0.4 ML Syringe SUBCUT SCH (20:31)
[2018-07-21] MEDS: Pantoprazole 40 MG Vial IVPUSH SCH ×2 (06:37→18:07)
[2018-07-21] MEDS: levETIRAcetam 500 MG Tab PO SCH ×2 (08:25→19:49)
[2018-07-21] MEDS: FORMOTEROL INH SCH ×2 (08:25→19:48)
[2018-07-21] MEDS: Gabapentin 100 MG Cap PO SCH ×2 (08:25→19:50)
[2018-07-21] MEDS: BUDESONIDE INH SCH ×2 (08:25→19:48)
[2018-07-21] MEDS: [UNRECOGNIZED DRUG - OTHER] INH SCH ×2 (08:25→19:48)
[2018-07-21] MEDS: Baclofen 10 MG Tab PO SCH ×2 (08:25→19:49)
[2018-07-21] MEDS: Potassium Chloride 10 MEQ Tab.ER PO SCH (08:26)
[2018-07-21] MEDS: Tiotropium Inhaler 18 MCG Inhalation Powder Cap Kit of 5 INH SCH (08:26)
[2018-07-21] MEDS: Polyethylene Glycol 3350 Powder 17 GM Packet PO SCH (08:29)
[2018-07-21] MEDS: Albuterol 0.083% 2.5 MG/3 ML Neb Soln NEB SCH ×4 (08:35→19:51)
--- NOTE | 2018-07-21 09:20 | PCM.PN ---
- General Info Date of Service: 07/21/18 Admission Dx/Problem (Free Text): Asthma Exacerbation Functional Status: Reports: Pain Controlled, Tolerating Diet, Ambulating - Review of Systems General: Reports: Weakness, Fatigue, Malaise. Denies: Fever HEENT: Reports: Sinus Congestion, Rhinitis Pulmonary: Reports: Shortness of Breath, Cough, Wheezing Cardiovascular: Denies: Chest Pain, Edema, Lightheadedness Gastrointestinal: Denies: Abdominal Pain, Nausea, Vomiting Genitourinary: Reports: No Symptoms Musculoskeletal: Reports: No Symptoms Skin: Reports: No Symptoms Neurological: Reports: Pre-Existing Deficit - Patient Data Vitals - Most Recent: Last Vital Signs Temp 98.4 F 07/21/18 08:00 Pulse 77 07/21/18 08:00 Resp 18 07/21/18 08:00 BP 123/66 07/21/18 08:00 Pulse Ox 94 L 07/21/18 08:00 Weight - Most Recent: 188 lb 12.8 oz Lab Results Last 24 Hours: Laboratory Results - last 24 hr 07/20/18 07/20/18 Range/Units 18:29 18:29 WBC 8.4 (5.0-10.0) 10^3/uL RBC 5.16 (4.50-6.00) 10^6/uL Hgb 15.3 (14.0-18.0) g/dL Hct 46.1 (40.0-54.0) % MCV 89.3 (82.0-94.0) fL MCH 29.7 (27.0-32.0) pg MCHC 33.2 (33.0-38.0) g/dL RDW Coeff of Felecia 13.9 (11.0-15.0) % Plt Count 194 (150-400) 10^3/uL Neut % (Auto) 87.6 H (35-85) % Lymph % (Auto) 7.8 L (10-55) % [place] % (Auto) 2.7 (0-16) % Eos % (Auto) 1.8 (0-5) % Baso % (Auto) 0.1 (0-3) % Neut # (Auto) 7.38 H (1.80-7.00) 10^3/uL Lymph # (Auto) 0.66 L (1.00-4.80) 10^3/uL Cecil # (Auto) 0.23 (0.00-0.80) 10^3/uL Eos # (Auto) 0.15 (0.00-0.45) 10^3/uL Baso # (Auto) 0.01 10^3/uL Sodium 140 (136-145) mEq/L Potassium 3.6 (3.5-5.0) mEq/L Chloride 105 (98-106) mEq/L Carbon Dioxide 28 (21-32) mmol/L BUN 12 (7-18) mg/dL Creatinine 1.2 (0.7-1.3) mg/dL Est Cr Clr Drug Dosing 61.68 mL/min Estimated GFR (MDRD) > 60 (>=60) mL/min Glucose 202 H D (75-99) mg/dL Calcium 8.5 (8.4-10.1) mg/dL C-Reactive Protein 5.0 H (0.2-0.8) mg/dL Med Orders - Current: Current Medications Acetaminophen (Tylenol) 650 mg PO Q4H PRN PRN Reason: Pain (Mild 1-3)/fever Albuterol (Ventolin Hfa) 0 gm INH Q4H PRN PRN Reason: SHORTNESS OF BREATH Albuterol (Proventil Neb Soln) 2.5 mg NEB QIDRT [facility] Last Admin: 07/21/18 08:35 Dose: 2.5 mg Baclofen (Lioresal) 5 mg PO BID [facility] Last Admin: 07/21/18 08:25 Dose: 5 mg Enoxaparin Sodium (Lovenox) 40 mg SUBCUT BEDTIME [facility] Last Admin: 07/20/18 20:31 Dose: 40 mg Gabapentin (Neurontin) 200 mg PO BID [facility] Last Admin: 07/21/18 08:25 Dose: 200 mg Levofloxacin/Dextrose 500 mg/ (Premix) 100 mls @ 100 mls/hr IV Q24H [facility] Levetiracetam (Keppra) 500 mg PO BID [facility] Last Admin: 07/21/18 08:25 Dose: 500 mg Methylprednisolone Sodium Succinate (Solu-Medrol) 125 mg IVPUSH Q24H [facility] Symbicort 160-5 Mcg (Budesonide/Formoterol 2 Puff) 2 puff INH BID [facility] Last Admin: 07/21/18 08:25 Dose: 2 puff Setraline 50mg ( Sertraline Hcl [ Sertraline Hcl] 75 Mg) 0 mg PO BEDTIME [facility] Last Admin: 07/20/18 20:21 Dose: 75 mg Ondansetron HCl (Zofran Odt) 8 mg PO Q6H PRN PRN Reason: nausea, able to take PO Ondansetron HCl (Zofran) 8 mg IV Q6H PRN PRN Reason: Nausea/Vomiting Pantoprazole Sodium (Protonix Iv) 40 mg IVPUSH Q12H [facility] Last Admin: 07/21/18 06:37 Dose: 40 mg Polyethylene Glycol (Miralax) 8.5 gm PO DAILY [facility] Last Admin: 07/21/18 08:29 Dose: Not Given Potassium Chloride (Klor-Con 10) 10 meq PO DAILY [facility] Last Admin: 07/21/18 08:26 Dose: 10 meq Sodium Chloride (Saline Flush) 10 ml FLUSH ASDIRECTED PRN PRN Reason: Keep Vein Open Temazepam (Restoril) 15 mg PO BEDTIME PRN PRN Reason: Sleep Tiotropium [place] (Spiriva Handihaler) 18 mcg INH DAILY [facility] Last Admin: 07/21/18 08:26 Dose: 1 puff Tizanidine HCl (Zanaflex) 4 mg PO BEDTIME [facility] Last Admin: 07/20/18 20:23 Dose: 4 mg Tramadol HCl (Ultram) 50 mg PO BID PRN PRN Reason: Pain Discontinued Medications Levofloxacin/Dextrose 500 mg/ (Premix) 100 mls @ 100 mls/hr IV ONETIME ONE Stop: 07/20/18 15:52 Last Admin: 07/20/18 15:36 Dose: 100 mls/hr Methylprednisolone Sodium Succinate (Solu-Medrol) 125 mg IVPUSH ONETIME ONE Stop: 07/20/18 14:55 Last Admin: 07/20/18 15:36 Dose: 125 mg - Exam General: Alert, Oriented HEENT: Mucous Membr. Moist/[place] Neck: Supple Lungs: Decreased Breath Sounds, Wheezing Cardiovascular: Regular Rate, Regular Rhythm GI/Abdominal Exam: Normal Bowel Sounds, Soft, Non-Tender Extremities: Normal Inspection, No Pedal Edema Skin: Warm, Dry Neurological: No New Focal Deficit - Problem List & Annotations (1) Asthma exacerbation SNOMED Code(s): 396965258 Code(s): J45.901 - UNSPECIFIED ASTHMA WITH (ACUTE) EXACERBATION Status: Acute Priority: High Current Visit: Yes Qualifiers: Asthma severity: mild Asthma persistence: persistent Qualified Code(s): J45.31 - Mild persistent asthma with (acute) exacerbation (2) Sinusitis SNOMED Code(s): 12056098 Code(s): J32.9 - CHRONIC SINUSITIS, UNSPECIFIED Status: Acute Current Visit: Yes Qualifiers: Sinusitis location: maxillary Chronicity: acute Recurrence: not specified as recurrent Qualified Code(s): J01.00 - Acute maxillary sinusitis, unspecified - Problem List Review Problem List Initiated/Reviewed/Updated: Yes - My Orders Last 24 Hours: My Active Orders 07/22/18 05:11 BASIC METABOLIC PANEL,BMP [CHEM] AM C-REACTIVE PROTEIN [CHEM] AM CBC WITH AUTO DIFF [HEME] AM - Assessment Assessment:: Asthma Exacerbation Acute Sinusitis - Plan Plan:: Patient is feeling better this am. Continues to have sinus congestion and drainage but admits has less chest discomfort. Feels less short of breath this am. Expiratory wheezing at times. Oxygen sats 93-94% on room air. Does drop to 92% at times with exertion. Does feel nebs are helping air exchange. Lung sounds this am noted to have expiratory wheezing. Awaiting sputum culture. WBC 8.4 this am. CRP 5.0. BMP normal. Will continue with nebs, IV Levaquin. Ambulate. Possible discharge home tomorrow.
[2018-07-21] MEDS ORDERED: Levofloxacin/Dextrose 5%-Water 500 MG in Premix Bag 1 BAG IV SCH (14:00)
[2018-07-21] MEDS ORDERED: methylPREDNISolone Sodium Succinate 125 MG/2 ML SDV IVPUSH SCH (14:00)
[2018-07-21] MEDS: Enoxaparin 40 MG/0.4 ML Syringe SUBCUT SCH (19:50)
[2018-07-21] MEDS: [UNRECOGNIZED DRUG - OTHER] PO SCH (19:51)
[2018-07-21] MEDS: tiZANidine 4 MG Tab PO SCH (19:52)
--- NOTE | 2018-07-21 21:20 | PCM.PN ---
- General Info Date of Service: 07/21/18 Admission Dx/Problem (Free Text): Asthma Exacerbation Functional Status: Reports: Pain Controlled, Tolerating Diet, Ambulating - Review of Systems General: Reports: Weakness. Denies: Fever HEENT: Reports: Sinus Congestion, Rhinitis Pulmonary: Reports: Shortness of Breath, Cough, Wheezing Cardiovascular: Denies: Chest Pain, Edema, Lightheadedness Gastrointestinal: Denies: Abdominal Pain, Nausea, Vomiting Genitourinary: Reports: No Symptoms Musculoskeletal: Reports: No Symptoms Skin: Reports: No Symptoms Neurological: Reports: No Symptoms - Patient Data Vitals - Most Recent: Last Vital Signs Temp 97.9 F 07/21/18 16:00 Pulse 97 07/21/18 16:00 Resp 20 07/21/18 16:00 BP 127/67 07/21/18 16:00 Pulse Ox 92 L 07/21/18 16:00 Weight - Most Recent: 188 lb 12.8 oz [place] Results Last 24 Hours: Microbiology 07/20/18 19:00 Gram Stain - Final Sputum - Expectorated Med Orders - Current: Current Medications Acetaminophen (Tylenol) 650 mg PO Q4H PRN PRN Reason: Pain (Mild 1-3)/fever Albuterol (Ventolin Hfa) 0 gm INH Q4H PRN PRN Reason: SHORTNESS OF BREATH Albuterol (Proventil Neb Soln) 2.5 mg NEB QIDRT [facility] Last Admin: 07/21/18 19:51 Dose: 2.5 mg Baclofen (Lioresal) 5 mg PO BID [facility] Last Admin: 07/21/18 19:49 Dose: 5 mg Enoxaparin Sodium (Lovenox) 40 mg SUBCUT BEDTIME [facility] Last Admin: 07/21/18 19:50 Dose: 40 mg Gabapentin (Neurontin) 200 mg PO BID [facility] Last Admin: 07/21/18 19:50 Dose: 200 mg Levofloxacin/Dextrose 500 mg/ (Premix) 100 mls @ 100 mls/hr IV Q24H [facility] Last Admin: 07/21/18 14:27 Dose: 100 mls/hr Levetiracetam (Keppra) 500 mg PO BID [facility] Last Admin: 07/21/18 19:49 Dose: 500 mg Methylprednisolone Sodium Succinate (Solu-Medrol) 125 mg IVPUSH Q24H [facility] Last Admin: 07/21/18 14:27 Dose: 125 mg Symbicort 160-5 Mcg (Budesonide/Formoterol 2 Puff) 2 puff INH BID [facility] Last Admin: 07/21/18 19:48 Dose: 2 puff Setraline 50mg ( Sertraline Hcl [ Sertraline Hcl] 75 Mg) 0 mg PO BEDTIME [facility] Last Admin: 07/21/18 19:51 Dose: 75 mg Ondansetron HCl (Zofran Odt) 8 mg PO Q6H PRN PRN Reason: nausea, able to take PO Ondansetron HCl (Zofran) 8 mg IV Q6H PRN PRN Reason: Nausea/Vomiting Pantoprazole Sodium (Protonix Iv) 40 mg IVPUSH Q12H [facility] Last Admin: 07/21/18 18:07 Dose: 40 mg Polyethylene Glycol (Miralax) 8.5 gm PO DAILY [facility] Last Admin: 07/21/18 08:29 Dose: Not Given Potassium Chloride (Klor-Con 10) 10 meq PO DAILY [facility] Last Admin: 07/21/18 08:26 Dose: 10 meq Sodium Chloride (Saline Flush) 10 ml FLUSH ASDIRECTED PRN PRN Reason: Keep Vein Open Temazepam (Restoril) 15 mg PO BEDTIME PRN PRN Reason: Sleep Tiotropium [place] (Spiriva Handihaler) 18 mcg INH DAILY [facility] Last Admin: 07/21/18 08:26 Dose: 1 puff Tizanidine HCl (Zanaflex) 4 mg PO BEDTIME [facility] Last Admin: 07/21/18 19:52 Dose: 4 mg Tramadol HCl (Ultram) 50 mg PO BID PRN PRN Reason: Pain Discontinued Medications Levofloxacin/Dextrose 500 mg/ (Premix) 100 mls @ 100 mls/hr IV ONETIME ONE Stop: 07/20/18 15:52 Last Admin: 07/20/18 15:36 Dose: 100 mls/hr Methylprednisolone Sodium Succinate (Solu-Medrol) 125 mg IVPUSH ONETIME ONE Stop: 07/20/18 14:55 Last Admin: 07/20/18 15:36 Dose: 125 mg - Exam General: Alert, Oriented HEENT: Mucous Membr. Moist/[place] Neck: Supple Lungs: Decreased Breath Sounds, Wheezing Cardiovascular: Regular Rate, Regular Rhythm GI/Abdominal Exam: Normal Bowel Sounds, Soft, Non-Tender Extremities: Normal Inspection, No Pedal Edema - Problem List & Annotations (1) Asthma exacerbation SNOMED Code(s): 819468762 Code(s): J45.901 - UNSPECIFIED ASTHMA WITH (ACUTE) EXACERBATION Status: Acute Priority: High Current Visit: Yes Qualifiers: Asthma severity: mild Asthma persistence: persistent Qualified Code(s): J45.31 - Mild persistent asthma with (acute) exacerbation (2) Sinusitis SNOMED Code(s): 94319650 Code(s): J32.9 - CHRONIC SINUSITIS, UNSPECIFIED Status: Acute Current Visit: Yes Qualifiers: Sinusitis location: maxillary Chronicity: acute Recurrence: not specified as recurrent Qualified Code(s): J01.00 - Acute maxillary sinusitis, unspecified - My Orders Last 24 Hours: My Active Orders 07/22/18 05:11 BASIC METABOLIC PANEL,BMP [CHEM] AM C-REACTIVE PROTEIN [CHEM] AM CBC WITH AUTO DIFF [HEME] AM - Assessment Assessment:: Asthma Exacerbation Acute Sinusitis - Plan Plan:: Patient is feeling better this am. Continues to have sinus congestion and drainage but admits has less chest discomfort. Feels less short of breath this am. Expiratory wheezing at times. Oxygen sats 93-94% on room air. Does drop to 92% at times with exertion. Does feel nebs are helping air exchange. Lung sounds this am noted to have expiratory wheezing. Awaiting sputum culture. WBC 8.4 this am. CRP 5.0. BMP normal. Will continue with nebs, IV Levaquin. Ambulate. Possible discharge home tomorrow.
[2018-07-22] MEDS: Pantoprazole 40 MG Vial IVPUSH SCH (05:56)
[2018-07-22 07:59] LABS: CHLORIDE,CL 108 mEq/L (98-106); SODIUM,NA 143 mEq/L (136-145)
[2018-07-22] MEDS: Gabapentin 100 MG Cap PO SCH (08:17)
[2018-07-22] MEDS: BUDESONIDE INH SCH (08:17)
[2018-07-22] MEDS: [UNRECOGNIZED DRUG - OTHER] INH SCH (08:17)
[2018-07-22] MEDS: Potassium Chloride 10 MEQ Tab.ER PO SCH (08:17)
[2018-07-22] MEDS: Baclofen 10 MG Tab PO SCH (08:17)
[2018-07-22] MEDS: Tiotropium Inhaler 18 MCG Inhalation Powder Cap Kit of 5 INH SCH (08:17)
[2018-07-22] MEDS: FORMOTEROL INH SCH (08:17)
[2018-07-22] MEDS: levETIRAcetam 500 MG Tab PO SCH (08:17)
[2018-07-22] MEDS: Polyethylene Glycol 3350 Powder 17 GM Packet PO SCH (08:18)
[2018-07-22 08:22] VITALS: BP 122/65
[2018-07-22] MEDS: Albuterol 0.083% 2.5 MG/3 ML Neb Soln NEB SCH (08:27)
[2018-07-22] MEDS ORDERED: methylPREDNISolone Sodium Succinate 125 MG/2 ML SDV IVPUSH SCH (09:30)
--- NOTE | 2018-07-22 20:35 | PCM.DCSUM1 ---
Discharge Summary - Hospital Course Free Text/Narrative:: Patient presented to clinic to see Dr. Hunter for 3-4 day history of increased cough and shortness of breath. Had headache and sinus congestion. No fevers. Not tolerating activity well, more weakness than his norm. Was noted in clinic to have inspiratory and expiratory wheezing scattered throughout. Decreased air exchange. Was admitted for further work up, nebulizer treatments, steroids and started on IV Levaquin. Diagnosis: Stroke: No Modified Dundy Scale: No Symptoms at All Modified Sandra Scale Score: 0 - Discharge Data Discharge Date: 07/22/18 Discharge Disposition: Home, Self-Care 01 Condition: Good - Discharge Diagnosis/Problem(s) (1) Asthma exacerbation SNOMED Code(s): 432183505 ICD Code: J45.901 - UNSPECIFIED ASTHMA WITH (ACUTE) EXACERBATION Status: Acute Priority: High Qualifiers: Asthma severity: mild Asthma persistence: persistent Qualified Code(s): J45.31 - Mild persistent asthma with (acute) exacerbation (2) Sinusitis SNOMED Code(s): 47457847 ICD Code: J32.9 - CHRONIC SINUSITIS, UNSPECIFIED Status: Acute Qualifiers: Sinusitis location: maxillary Chronicity: acute Recurrence: not specified as recurrent Qualified Code(s): J01.00 - Acute maxillary sinusitis, unspecified - Patient Summary/Data Complications: none Hospital Course: Patient doing well. Much better air exchange noted. Fine expiratory wheezing noted throughout, improved. Is ambulating per his norm, history of CVA. Has been maintaining sats at 94% on room air. Afebrile. Admits sinus congestion improved. Appetite is good. WBC on admit 8.4, BMP normal, CRP 5.0. Now WBC elevated at 16.8, likely related to steroids. CRP improved to 2.0. Has been on nebs, IV Levaquin and Solu Medrol. Will discharge home on oral Levaquin for 7 days. Prednisone 20 mg daily for 3 days. Follow up with Dr. hunter in one week. - Patient Instructions Diet: Usual Diet as Tolerated Activity: As Tolerated Showering/Bathing: May Shower - Discharge Plan *PRESCRIPTION DRUG MONITORING PROGRAM REVIEWED*: No *COPY OF PRESCRIPTION DRUG MONITORING REPORT IN PATIENT JARETT: No Prescriptions/Med Rec: Levofloxacin [Levaquin] 500 mg PO DAILY #7 tablet predniSONE [Prednisone] 20 mg PO DAILY #3 tablet Home Medications: Home Meds Baclofen 5 mg PO BID 01/29/15 [History] Gabapentin [Neurontin] 200 mg PO BID 01/29/15 [History] Pantoprazole [ProTONIX] 40 mg PO ACBREAKFAST 01/29/15 [History] atorvaSTATin [Lipitor] 40 mg PO DAILY 01/29/15 [History] tiZANidine [Zanaflex] 4 mg PO BEDTIME 01/29/15 [History] traMADol HCl [Tramadol HCl] 50 mg PO BID PRN 01/29/15 [History] Ondansetron [Ondansetron ODT] 4 mg TOP Q4H PRN 03/01/15 [History] Sertraline HCl 75 mg PO BEDTIME 10/18/15 [History] Albuterol [Ventolin HFA] 2 inh INH Q4H PRN 04/23/17 [History] Polyethylene Glycol 3350 [Miralax] 8 gm PO DAILY 04/23/17 [History] levETIRAcetam [Keppra] 500 mg PO BID #60 tablet 04/24/17 [Rx] Albuterol Sulfate 1 vial INH Q6H PRN 07/20/18 [History] Budesonide/Formoterol [Symbicort 160-4.5 MCG] 2 puff INH BID 07/20/18 [History] Potassium Chloride 10 meq PO DAILY 07/20/18 [History] Tiotropium [Spiriva Handihaler] 1 inh INH DAILY 07/20/18 [History] Levofloxacin [Levaquin] 500 mg PO DAILY #7 tablet 07/22/18 [Rx] predniSONE [Prednisone] 20 mg PO DAILY #3 tablet 07/22/18 [Rx] Referrals: Deshawn Hunter MD [Primary Care Provider] - (Follow up with Dr. Hunter in one week) - Discharge Summary/Plan Comment DC Time >30 min.: No - General Info Date of Service: 07/22/18 Admission Dx/Problem (Free Text: Asthma Exacerbation Acute Sinusitis Functional Status: Reports: Pain Controlled, Tolerating Diet, Ambulating - Review of Systems General: Reports: Weakness, Malaise. Denies: Fever, Fatigue HEENT: Reports: Sinus Congestion, Rhinitis Pulmonary: Reports: Shortness of Breath, Cough, Wheezing Cardiovascular: Denies: Chest Pain, Edema, Lightheadedness Gastrointestinal: Denies: Abdominal Pain, Nausea, Vomiting Genitourinary: Reports: No Symptoms Musculoskeletal: Reports: No Symptoms Skin: Reports: No Symptoms Neurological: Reports: Pre-Existing Deficit (weakness due to previous CVA) - Patient Data Vitals - Most Recent: Last Vital Signs Temp 97.9 F 07/22/18 08:00 Pulse 85 07/22/18 08:00 Resp 18 07/22/18 08:00 BP 122/65 07/22/18 08:00 Pulse Ox 95 07/22/18 08:00 Weight - Most Recent: 188 lb 12.8 oz Lab Results - Last 24 hrs: Laboratory Results - last 24 hr 07/22/18 07/22/18 Range/Units 06:35 06:35 WBC 16.8 H (5.0-10.0) 10^3/uL RBC 4.68 (4.50-6.00) 10^6/uL Hgb 13.9 L (14.0-18.0) g/dL Hct 42.3 (40.0-54.0) % MCV 90.4 (82.0-94.0) fL MCH 29.7 (27.0-32.0) pg MCHC 32.9 L (33.0-38.0) g/dL RDW Coeff of Felecia 13.9 (11.0-15.0) % Plt Count 229 (150-400) 10^3/uL Neut % (Auto) 86.5 H (35-85) % Lymph % (Auto) 5.5 L (10-55) % [place] % (Auto) 7.9 (0-16) % Eos % (Auto) 0 (0-5) % Baso % (Auto) 0.1 (0-3) % Neut # (Auto) 14.50 H (1.80-7.00) 10^3/uL Lymph # (Auto) 0.93 L (1.00-4.80) 10^3/uL [place] # (Auto) 1.32 H (0.00-0.80) 10^3/uL Eos # (Auto) 0.00 (0.00-0.45) 10^3/uL Baso # (Auto) 0.01 10^3/uL Sodium 143 (136-145) mEq/L Potassium 3.9 (3.5-5.0) mEq/L Chloride 108 H (98-106) mEq/L Carbon Dioxide 26 (21-32) mmol/L BUN 19 H D (7-18) mg/dL Creatinine 1.1 (0.7-1.3) mg/dL Est Cr Clr Drug Dosing 67.29 mL/min Estimated GFR (MDRD) > 60 (>=60) mL/min Glucose 183 H (75-99) mg/dL Calcium 8.8 (8.4-10.1) mg/dL C-Reactive Protein 2.0 H (0.2-0.8) mg/dL HARMONY Results - Last 24 hrs: Microbiology 07/20/18 19:00 Gram Stain - Final Sputum - Expectorated Sputum Culture - Preliminary Med Orders - Current: Current Medications Discontinued Medications Acetaminophen (Tylenol) 650 mg PO Q4H PRN PRN Reason: Pain (Mild 1-3)/fever Albuterol (Ventolin Hfa) 0 gm INH Q4H PRN PRN Reason: SHORTNESS OF BREATH Albuterol (Proventil Neb Soln) 2.5 mg NEB QIDRT [facility] Last Admin: 07/22/18 08:27 Dose: 2.5 mg Baclofen (Lioresal) 5 mg PO BID [facility] Last Admin: 07/22/18 08:17 Dose: 5 mg Enoxaparin Sodium (Lovenox) 40 mg SUBCUT BEDTIME [facility] Last Admin: 07/21/18 19:50 Dose: 40 mg Gabapentin (Neurontin) 200 mg PO BID [facility] Last Admin: 07/22/18 08:17 Dose: 200 mg Levofloxacin/Dextrose 500 mg/ (Premix) 100 mls @ 100 mls/hr IV ONETIME ONE Stop: 07/20/18 15:52 Last Admin: 07/20/18 15:36 Dose: 100 mls/hr Levofloxacin/Dextrose 500 mg/ (Premix) 100 mls @ 100 mls/hr IV Q24H [facility] Last Admin: 07/21/18 14:27 Dose: 100 mls/hr Levetiracetam (Keppra) 500 mg PO BID [facility] Last Admin: 07/22/18 08:17 Dose: 500 mg Methylprednisolone Sodium Succinate (Solu-Medrol) 125 mg IVPUSH ONETIME ONE Stop: 07/20/18 14:55 Last Admin: 07/20/18 15:36 Dose: 125 mg Methylprednisolone Sodium Succinate (Solu-Medrol) 125 mg IVPUSH Q24H [facility] Last Admin: 07/21/18 14:27 Dose: 125 mg Methylprednisolone Sodium Succinate (Solu-Medrol) 125 mg IVPUSH DAILY@0930 [facility] Last Admin: 07/22/18 09:52 Dose: 125 mg Symbicort 160-5 Mcg (Budesonide/Formoterol 2 Puff) 2 puff INH BID [facility] Last Admin: 07/22/18 08:17 Dose: 2 puff Setraline 50mg ( Sertraline Hcl [ Sertraline Hcl] 75 Mg) 0 mg PO BEDTIME [facility] Last Admin: 07/21/18 19:51 Dose: 75 mg Ondansetron HCl (Zofran Odt) 8 mg PO Q6H PRN PRN Reason: nausea, able to take PO Ondansetron HCl (Zofran) 8 mg IV Q6H PRN PRN Reason: Nausea/Vomiting Pantoprazole Sodium (Protonix Iv) 40 mg IVPUSH Q12H [facility] Last Admin: 07/22/18 05:56 Dose: 40 mg Polyethylene Glycol (Miralax) 8.5 gm PO DAILY [facility] Last Admin: 07/22/18 08:18 Dose: Not Given Potassium Chloride (Klor-Con 10) 10 meq PO DAILY [facility] Last Admin: 07/22/18 08:17 Dose: 10 meq Sodium Chloride (Saline Flush) 10 ml FLUSH ASDIRECTED PRN PRN Reason: Keep Vein Open Temazepam (Restoril) 15 mg PO BEDTIME PRN PRN Reason: Sleep Tiotropium [place] (Spiriva Handihaler) 18 mcg INH DAILY [facility] Last Admin: 07/22/18 08:17 Dose: 1 puff Tizanidine HCl (Zanaflex) 4 mg PO BEDTIME [facility] Last Admin: 07/21/18 19:52 Dose: 4 mg Tramadol HCl (Ultram) 50 mg PO BID PRN PRN Reason: Pain - Exam General: Reports: Alert, Oriented HEENT: Reports: Mucous Membr. Moist/[place] Neck: Reports: Supple Lungs: Reports: Decreased Breath Sounds, Wheezing Cardiovascular: Reports: Regular Rate, Regular Rhythm GI/Abdominal Exam: Normal Bowel Sounds, Soft, Non-Tender Extremities: Normal Inspection, No Pedal Edema Skin: Reports: Warm, Dry Neurological: Reports: No New Focal Deficit
== END 2018-07-22 10:20 | disposition home or self-care (01) ==
LOC: CC.MS 14:32 → UNDOADMOB 14:32 → CC.MS 17:33
PROVIDERS: ADMIT Family Medicine; ATTEND Family Medicine
DX: J45.31 Mild persistent asthma with (acute) exacerbation (principal); J01.00 Acute maxillary sinusitis, unspecified; J06.9 Acute upper respiratory infection, unspecified; I10 Essential (primary) hypertension; E78.5 Hyperlipidemia, unspecified; F32.9 Major depressive disorder, single episode, unspecified; K21.9 Gastro-esophageal reflux disease without esophagitis; N40.1 Benign prostatic hyperplasia with lower urinary tract symptoms; N39.43 Post-void dribbling; Z88.1 Allergy status to other antibiotic agents; Z86.73 Personal history of transient ischemic attack (TIA), and cerebral infarction without residual deficits; Z79.899 Other long term (current) drug therapy
CPT/HCPCS: 36415; 71046; 80048; 85025; 86140; 87070; 87205; 94640; 96365; 96366; 96372; 96375; 96376; 99217; 99220; 99225; A9270-GY; C9113; G0378; G0379; J1650; J1956; J2930; J7613-GY

== ENCOUNTER 2019-03-16 10:18 | Observation (INO) | payer MEDICARE, MEDICAID ==
[2019-03-16 10:43] LABS: CHLORIDE,CL 106 mEq/L (98-106); SODIUM,NA 145 mEq/L (136-145)
--- NOTE | 2019-03-16 12:08 | EDM.PDOC ---
ED HPI GENERAL MEDICAL PROBLEM - General Chief Complaint: Neuro Symptoms/Deficits Stated Complaint: slurring words Time Seen by Provider: 03/16/19 10:26 Source of Information: Reports: Patient, Family () History Limitations: Reports: No Limitations - History of Present Illness INITIAL COMMENTS - FREE TEXT/NARRATIVE: Damion is a 68 yo male who is brought into the ED by his with concerns of a stroke. She states yesterday evening she noticed he was slurring his words around 5:00pm and it lasted till around 7:00pm. She states he was fine after that and didn't show any unilateral weakness. He has a known history of stroke back in 2014 and has had left sided weakness/deficits since then. He admits he has gained significantly in his left leg but his left hand continues to be difficult for him. He denies any changes in extremity weakness in the last day though, everything current is chronic. His states this morning he started slurring his words again and decided to bring him in. States this morning it was worse than last night and seemed to last longer. while driving to the ED it resolved again. Damion states he has been feeling well otherwise. Does admit he could tell when he was slurring his words. Denies any headaches, visual disturbances. States when he is reading a lot his left eye will water. No upper respiratory symptoms. No GI or symptoms. Does get up to use the bathroom a lot but this isn't out of the ordinary. - Related Data Allergies Allergy/AdvReac Type Severity Reaction Status Date / Time cephalexin Allergy Cannot Verified 03/16/19 11:15 Remember Home Meds: Home Meds Baclofen 5 mg PO BID 01/29/15 [History] Gabapentin [Neurontin] 200 mg PO BID 01/29/15 [History] Pantoprazole [ProTONIX] 40 mg PO ACBREAKFAST 01/29/15 [History] atorvaSTATin [Lipitor] 40 mg PO DAILY 01/29/15 [History] tiZANidine [Zanaflex] 4 mg PO BEDTIME 01/29/15 [History] traMADol HCl [Tramadol HCl] 50 mg PO BID PRN 01/29/15 [History] Ondansetron [Ondansetron ODT] 4 mg SL Q4H PRN 03/01/15 [History] Sertraline HCl 75 mg PO BEDTIME 10/18/15 [History] Albuterol [Ventolin HFA] 2 inh INH Q4H PRN 04/23/17 [History] Polyethylene Glycol 3350 [Miralax] 8 gm PO DAILY 04/23/17 [History] levETIRAcetam [Keppra] 500 mg PO BID #60 tablet 04/24/17 [Rx] Albuterol Sulfate 1 vial INH Q6H PRN 07/20/18 [History] Budesonide/Formoterol [Symbicort 160-4.5 MCG] 2 puff INH BID 07/20/18 [History] Potassium Chloride 10 meq PO DAILY 07/20/18 [History] Tiotropium [Spiriva Handihaler] 1 inh INH DAILY 07/20/18 [History] Past Medical History HEENT History: Reports: Cataract, Hard of Hearing Cardiovascular History: Reports: Blood Clots/VTE/DVT Respiratory History: Reports: Asthma, Pneumonia, Recurrent Gastrointestinal History: Reports: GERD Genitourinary History: Reports: None Musculoskeletal History: Reports: Neck Pain, Chronic Other Musculoskeletal History: 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 Social & Family History - Family History Family Medical History: Noncontributory HEENT: Reports: Hearing Impairment, Impaired Vision Cardiac: Reports: Prior Cardiac Arrest Respiratory: Reports: PE - Tobacco Use Smoking Status *Q: Former Smoker Used Tobacco, but Quit: Yes Month/Year Tobacco Last Used: 40 years - Caffeine Use Caffeine Use: Reports: Coffee - Recreational Drug Use Recreational Drug Use: No ED ROS GENERAL - Review of Systems Review Of Systems: See Below Constitutional: Denies: Fever, Chills, Weakness, Decreased Appetite HEENT: Reports: Other (left eye barrera). Denies: Ear Pain, Sinus Problem, Throat Pain Respiratory: Denies: Shortness of Breath, Wheezing Cardiovascular: Denies: Chest Pain, Edema, Lightheadedness, Palpitations, Syncope GI/Abdominal: Reports: No Symptoms. Denies: Abdominal Pain : Reports: No Symptoms Skin: Reports: No Symptoms Neurological: Reports: Pre-Existing Deficit, Change in Speech. Denies: Confusion, Headache, Seizure, Syncope, Trouble Speaking, Difficulty Walking Psychiatric: Reports: No Symptoms ED EXAM, NEURO - Physical Exam Exam: See Below Exam Limited By: No Limitations General Appearance: Alert, No Apparent Distress Eye Exam: Bilateral Eye: EOMI, Normal Inspection, PERRL Ears: Normal External Exam, Normal Canal, Hearing Grossly Normal, Normal TMs Nose: Normal Inspection, Normal Mucosa, No Blood Throat/Mouth: Normal Inspection, Normal Lips, Normal Teeth, Normal Gums, Normal Oropharynx, Normal Voice, No Airway Compromise Head Exam: Atraumatic, Normocephalic Neck: Normal Inspection, Supple, Non-Tender Respiratory/Chest: No Respiratory Distress, Lungs Clear, Normal Breath Sounds, No Accessory Muscle Use Cardiovascular: Normal Peripheral Pulses, Regular Rate, Rhythm, No Edema, No Murmur GI/Abdominal: Normal Bowel Sounds, Soft, Non-Tender, No Organomegaly, No Distention, No Mass Neurological: Alert, Normal Mood/Affect, CN II-XII Intact, No Motor/Sensory Deficits (besides known deficit, nothing new), Oriented x 3, Other (known deficit to left upper extremity, unable to move without assistance. Excellent strength) Extremities: Normal Inspection, No Pedal Edema, Normal Capillary Refill Psychiatric: Normal Affect, Normal Mood Skin Exam: Warm, Dry, Intact, Normal Color Course - Vital Signs Last Recorded V/S: Last Vital Signs Temp 97.6 F 03/16/19 10:50 Pulse 66 03/16/19 10:50 Resp 16 03/16/19 10:50 BP 142/84 H 03/16/19 10:50 Pulse Ox 95 03/16/19 10:50 - Orders/Labs/Meds Orders: Active Orders 24 hr Category Date Time Status Patient Status Manage Transfer [TRANSFER] Routine ADT 03/16/19 11:54 Ordered Head wo Cont [CT] Routine Exams 03/16/19 Taken INFLUENZA A+B AG SCREEN [RM] Stat Lab 03/16/19 10:50 Received UA W/MICROSCOPIC [URIN] Stat Lab 03/16/19 10:28 Received Resuscitation Status Routine Resus Stat 03/16/19 11:54 Ordered Labs: Laboratory Tests 1203/16/19 03/16/19 Range/Units 10:23 10:23 10:23 WBC 10.2 H (5.0-10.0) 10^3/uL RBC 5.54 (4.50-6.00) 10^6/uL Hgb 16.5 (14.0-18.0) g/dL Hct 49.9 (40.0-54.0) % MCV 90.1 (82.0-94.0) fL MCH 29.8 (27.0-32.0) pg MCHC 33.1 (33.0-38.0) g/dL RDW Coeff of Felecia 13.8 (11.0-15.0) % Plt Count 226 (150-400) 10^3/uL Neut % (Auto) 68.2 (35-85) % Lymph % (Auto) 18.1 (10-55) % [place] % (Auto) 10.7 (0-16) % Eos % (Auto) 2.7 (0-5) % Baso % (Auto) 0.3 (0-3) % Neut # (Auto) 6.97 (1.80-7.00) 10^3/uL Lymph # (Auto) 1.85 (1.00-4.80) 10^3/uL [place] # (Auto) 1.09 H (0.00-0.80) 10^3/uL Eos # (Auto) 0.28 (0.00-0.45) 10^3/uL Baso # (Auto) 0.03 10^3/uL PT 10.3 (9.7-12.3) SEC INR 1.00 (0.92-1.18) APTT 26.4 (23.2-32.3) SEC Sodium 145 (136-145) mEq/L Potassium 3.6 (3.5-5.0) mEq/L Chloride 106 (98-106) mEq/L Carbon Dioxide 32 (21-32) mmol/L BUN 13 (7-18) mg/dL Creatinine 1.2 (0.7-1.3) mg/dL Est Cr Clr Drug Dosing TNP Estimated GFR (MDRD) > 60 (>=60) mL/min Glucose 74 L (75-99) mg/dL Calcium 9.1 (8.4-10.1) mg/dL Lactate Dehydrogenase 243 H (100-190) U/L Creatine Kinase 65 (35-232) U/L Troponin I < 0.017 (0.00-0.06) ng/mL - Re-Assessments/Exams Free Text/Narrative Re-Assessment/Exam: Stroke scale assessment is a 0, see attached. Departure - Departure Time of Disposition: 11:45 Disposition: Refer to Observation Clinical Impression: TIA (transient ischemic attack) - Discharge Information Sepsis Event Note - Evaluation Sepsis Screening Result: No Definite Risk - Focused Exam Vital Signs: Vital Signs Temp Pulse Resp BP Pulse Ox 03/16/19 10:50 97.6 F 66 16 142/84 H 95 03/16/19 10:35 97.4 F 67 16 164/88 H 94 L 03/16/19 10:20 96.6 F 90 16 129/84 95 Date Exam was Performed: 03/16/19 Time Exam was Performed: 12:01 - Problem List & Annotations (1) TIA (transient ischemic attack) SNOMED Code(s): 739812069 Code(s): G45.9 - TRANSIENT CEREBRAL ISCHEMIC ATTACK, UNSPECIFIED Status: Acute Current Visit: Yes - My Orders Last 24 Hours: My Active Orders 03/16/19 Head wo Cont [CT] Routine 03/16/19 10:28 UA W/MICROSCOPIC [URIN] Stat 03/16/19 10:50 INFLUENZA A+B AG SCREEN [RM] Stat 03/16/19 11:54 Patient Status Manage Transfer [TRANSFER] Routine Resuscitation Status Routine - Assessment/Plan Admission H&P: Please use this note as an admission H&P Last 24 Hours: My Active Orders 03/16/19 Head wo Cont [CT] Routine 03/16/19 10:28 UA W/MICROSCOPIC [URIN] Stat 03/16/19 10:50 INFLUENZA A+B AG SCREEN [RM] Stat 03/16/19 11:54 Patient Status Manage Transfer [TRANSFER] Routine Resuscitation Status Routine Plan: Discussed findings with Damion today in regards to his intermittent slurred speech. CT of the brain was negative today for any acute infarcts. Will admit to Dr. Hunter's services under observation to monitor. Telemetry ordered. Dr. Hunter consulted and agrees with admission. Family is in agreement as well. Labs overall are unremarkable. Influenza and urine pending. Will get carotid duplex today.
[2019-03-16] MEDS ORDERED: Acetaminophen 325 MG Tab PO PRN (12:34)
[2019-03-16] MEDS ORDERED: Ondansetron 4 MG Tab.DIS PO PRN (12:34)
[2019-03-16] MEDS ORDERED: traMADol 50 MG Tab PO PRN (12:34)
[2019-03-16] MEDS ORDERED: Albuterol 8 GM Inhaler INH PRN (12:34)
[2019-03-16] MEDS ORDERED: Sodium Chloride 0.9% 10 ML Syringe FLUSH PRN (12:34)
[2019-03-16] MEDS ORDERED: Albuterol 0.083% 2.5 MG/3 ML Neb Soln INH PRN (12:34)
[2019-03-16] MEDS: Enoxaparin 30 MG/0.3 ML Syringe SUBCUT SCH (13:20)
[2019-03-16] MEDS: BACLOFEN 10 MG PO SCH (19:38)
[2019-03-16] MEDS: levETIRAcetam 500 MG Tab**OWN MED PO SCH (19:38)
[2019-03-16] MEDS: FORMOTEROL INH SCH (19:39)
[2019-03-16] MEDS: Gabapentin 100 MG Cap**OWN MED PO SCH (19:39)
[2019-03-16] MEDS: BUDESONIDE INH SCH (19:39)
[2019-03-16] MEDS ORDERED: tiZANidine 4 MG Tab**OWN MED PO SCH (20:00)
[2019-03-16] MEDS ORDERED: Formoterol/Mometasone 200-5 MCG 8.8 GM Inhaler IH SCH (20:00)
[2019-03-16] MEDS ORDERED: Sertraline 50 MG Tab**OWN MED PO SCH (20:00)
[2019-03-17] MEDS ORDERED: PANTOPRAZOLE 40 MG PO SCH (07:00)
[2019-03-17] MEDS ORDERED: Polyethylene Glycol 3350 Powder 17 GM Packet PO SCH (08:00)
[2019-03-17] MEDS ORDERED: Potassium Chloride 10 MEQ Tab.ER**OWN MED PO SCH (08:00)
[2019-03-17] MEDS ORDERED: TIOTROPIUM 18 MCG INH SCH (08:00)
[2019-03-17] MEDS ORDERED: atorvaSTATin 40 MG Tab**OWN MED PO SCH (08:00)
[2019-03-17] MEDS: levETIRAcetam 500 MG Tab**OWN MED PO SCH (08:08)
[2019-03-17] MEDS: BACLOFEN 10 MG PO SCH (08:10)
[2019-03-17] MEDS: Gabapentin 100 MG Cap**OWN MED PO SCH (08:10)
[2019-03-17] MEDS: FORMOTEROL INH SCH (08:10)
[2019-03-17] MEDS: BUDESONIDE INH SCH (08:10)
[2019-03-17 13:24] VITALS: BP 113/64; PULSE 58
[2019-03-17] MEDS: Enoxaparin 30 MG/0.3 ML Syringe SUBCUT SCH (13:25)
--- NOTE | 2019-03-17 21:10 | PCM.DCSUM1 ---
Discharge Summary - Hospital Course Free Text/Narrative:: Damion presented to ER yesterday with his due to concerns of a stroke. She states he was slurring his words, lasted approximately 2 hours. He has history of CVA with left sided weakness, did not note change with that. Upon awakening , noted increased slurring again of his words and felt needed to be evaluated. She is the primary care provider for patient. No recent URI, headaches, chest pain or shortness of breath. Did have frequency with urination but that is his norm. Labs, CT scan of head all normal. Admitted for cardiac and neurological monitoring. Diagnosis: Stroke: No Modified Juab Scale: No Symptoms at All Modified Juab Scale Score: 0 - Discharge Data Discharge Date: 03/17/19 Discharge Disposition: Home, Self-Care 01 Condition: Fair - Referral to Home Health Primary Care Physician: PCP None - Patient Summary/Data Complications: none Consults: Consultations 03/16/19 12:34 PT Evaluation and Treatment [CONS] Routine Hospital Course: Patient is stable this am. Speech is clear and appropriate. Is complaining of left leg pain and cramping. States does not usually lie in bed this long without ambulating and stretching leg. Appetite is good, no dysphagia. Is ambulating per his norm, chronic left sided weakness. No headaches this am. No cardiac changes. Denies chest pain, shortness of breath. Blood pressure has been stable. Will start patient on Plavix for further stroke prevention. Follow up with Dr. Hunter in 2 weeks. - Patient Instructions Diet: Usual Diet as Tolerated Activity: As Tolerated - Discharge Plan *PRESCRIPTION DRUG MONITORING PROGRAM REVIEWED*: No *COPY OF PRESCRIPTION DRUG MONITORING REPORT IN PATIENT JARETT: No Prescriptions/Med Rec: Clopidogrel Bisulfate [Plavix] 75 mg PO DAILY #30 tablet Home Medications: Home Meds Baclofen 5 mg PO BID 01/29/15 [History] Gabapentin [Neurontin] 200 mg PO BID 01/29/15 [History] Pantoprazole [ProTONIX] 40 mg PO ACBREAKFAST 01/29/15 [History] atorvaSTATin [Lipitor] 40 mg PO DAILY 01/29/15 [History] tiZANidine [Zanaflex] 4 mg PO BEDTIME 01/29/15 [History] traMADol HCl [Tramadol HCl] 50 mg PO BID PRN 01/29/15 [History] Ondansetron [Ondansetron ODT] 4 mg SL Q4H PRN 03/01/15 [History] Sertraline HCl 75 mg PO BEDTIME 10/18/15 [History] Albuterol [Ventolin HFA] 2 inh INH Q4H PRN 04/23/17 [History] Polyethylene Glycol 3350 [Miralax] 8 gm PO DAILY 04/23/17 [History] levETIRAcetam [Keppra] 500 mg PO BID #60 tablet 04/24/17 [Rx] Albuterol Sulfate 1 vial INH Q6H PRN 07/20/18 [History] Budesonide/Formoterol [Symbicort 160-4.5 MCG] 2 puff INH BID 07/20/18 [History] Potassium Chloride 10 meq PO DAILY 07/20/18 [History] Tiotropium [Spiriva Handihaler] 1 inh INH DAILY 07/20/18 [History] Clopidogrel Bisulfate [Plavix] 75 mg PO DAILY #30 tablet 03/17/19 [Rx] Forms: ED Department Discharge Referrals: Deshawn Hunter MD [ED Physician] - (Follow up in [address] Hunter ) - Discharge Summary/Plan Comment DC Time >30 min.: No - General Info Date of Service: 03/17/19 Admission Dx/Problem (Free Text: TIA Functional Status: Reports: Pain Controlled, Tolerating Diet, Ambulating - Review of Systems General: Reports: Weakness HEENT: Denies: Visual Changes Pulmonary: Reports: Cough. Denies: Shortness of Breath Cardiovascular: Denies: Chest Pain, Edema, Lightheadedness Gastrointestinal: Denies: Abdominal Pain, Nausea, Vomiting Genitourinary: Reports: No Symptoms Musculoskeletal: Reports: Leg Pain, Foot Pain Skin: Reports: No Symptoms Neurological: Reports: Pre-Existing Deficit, Weakness - Patient Data Vitals - Most Recent: Last Vital Signs Temp 97.5 F 03/17/19 08:00 Pulse 58 L 03/17/19 08:00 Resp 18 03/17/19 08:00 BP 113/64 03/17/19 08:00 Pulse Ox 96 03/17/19 08:00 Weight - Most Recent: 188 lb 9.6 oz HARMONY Results - Last 24 hrs: Microbiology 03/16/19 10:50 Influenza Type A Antigen Screen - Final Nasal, Unspecified NEGATIVE INFLUENZA A VIRUS AG REFERENCE RANGE: NEGATIVE Influenza Type B Antigen Screen - Final NEGATIVE INFLUENZA B VIRUS AG REFERENCE RANGE: NEGATIVE Med Orders - Current: Current Medications Discontinued Medications Acetaminophen (Tylenol) 650 mg PO Q4H PRN PRN Reason: Pain (Mild 1-3)/fever Albuterol (Ventolin Hfa) 0 gm INH Q4H PRN PRN Reason: Shortness of Breath Albuterol (Proventil Neb Soln) 2.5 mg INH Q6H PRN PRN Reason: Dyspnea Baclofen (Lioresal) 5 mg PO BID [facility] Last Admin: 03/17/19 08:10 Dose: 5 mg Enoxaparin Sodium (Lovenox) 30 mg SUBCUT Q24H [facility] Last Admin: 03/17/19 13:25 Dose: Not Given Gabapentin (Neurontin) 200 mg PO BID [facility] Last Admin: 03/17/19 08:10 Dose: 200 mg Levetiracetam (Keppra) 500 mg PO BID [facility] Last Admin: 03/17/19 08:08 Dose: 500 mg Mometasone Furoate/Formoterol Fumar (Dulera 200-5 Mcg) 2 puff IH BID [facility] Atorvastatin 40 Mg (TabOwn Med) 1 each PO DAILY [facility] Last Admin: 03/17/19 08:09 Dose: 1 each Pantoprazole 40mg (Own Med) 1 each PO ACBREAKFAST [facility] Last Admin: 03/17/19 06:48 Dose: 1 each Sertraline 50 Mg Tab (Own Med) 1.5 each PO BEDTIME [facility] Last Admin: 03/16/19 19:39 Dose: 1.5 each Budesonide/Formoterol 160/4.5 Mcg [Symbicort] Inh *Own Med* 0 each INH BID [facility] Last Admin: 03/17/19 08:10 Dose: 1 each Ondansetron HCl (Zofran Odt) 4 mg PO Q4H PRN PRN Reason: Nausea Polyethylene Glycol (Miralax) 8.5 gm PO DAILY [facility] Last Admin: 03/17/19 08:14 Dose: Not Given Potassium Chloride (Klor-Con 10) 10 meq PO DAILY [facility] Last Admin: 03/17/19 08:11 Dose: 10 meq Sodium Chloride (Saline Flush) 10 ml FLUSH ASDIRECTED PRN PRN Reason: Keep Vein Open Tiotropium [place] (Spiriva Handihaler) 18 mcg INH DAILY [facility] Last Admin: 03/17/19 08:07 Dose: 18 mcg Tizanidine HCl (Zanaflex) 4 mg PO BEDTIME [facility] Last Admin: 03/16/19 19:40 Dose: 4 mg Tramadol HCl (Ultram) 50 mg PO BID PRN PRN Reason: Pain Last Admin: 03/17/19 09:32 Dose: 50 mg - Exam General: Reports: Alert, Oriented HEENT: Reports: Mucous Membr. Moist/[place] Neck: Reports: Supple Lungs: Reports: Clear to Auscultation, Normal Respiratory Effort Cardiovascular: Reports: Regular Rate, Regular Rhythm GI/Abdominal Exam: Normal Bowel Sounds, Soft, Non-Tender Extremities: No Pedal Edema, Other (previous left side arm and leg weakness unchanged) Skin: Reports: Warm, Dry Neurological: Reports: Normal Speech ( states speech has improved from yesterday)
== END 2019-03-17 09:30 | disposition home or self-care (01) ==
LOC: CC.ED 10:18 → CC.MS 11:54 → UNDOADMOB 12:05
PROVIDERS: ADMIT Physician Assistant Medical; ATTEND Family Medicine
DX: G45.9 Transient cerebral ischemic attack, unspecified (principal); K21.9 Gastro-esophageal reflux disease without esophagitis; J45.909 Unspecified asthma, uncomplicated; Z87.891 Personal history of nicotine dependence; Z88.1 Allergy status to other antibiotic agents; Z79.899 Other long term (current) drug therapy
CPT/HCPCS: 36415; 70450; 80048; 81001; 82550; 83615; 84484; 85025; 85610; 85730; 87804; 93005; 93880; 94640; 96372; 97530-GP; 99285-25; A9270-GY; G0378; J1650

== ENCOUNTER 2020-05-28 11:19 | Emergency (ER) | payer MEDICARE, MEDICAID ==
--- NOTE | 2020-05-28 11:36 | EDM.PDOC ---
ED HPI GENERAL MEDICAL PROBLEM - General Chief Complaint: General Stated Complaint: lightheaded, lethargic Time Seen by Provider: 05/28/20 11:19 Source of Information: Reports: Patient History Limitations: Reports: No Limitations - History of Present Illness INITIAL COMMENTS - FREE TEXT/NARRATIVE: This patient is a 69 year old male that presents to the ER. Patient arrives via EMS. Patient reports that for the past 3 days he has been having some right sided neck pain. Patient reports he does not recall injury his right neck. Patient reports that then when he woke this morning, he continued to have his right sided nec pain. Patient reports he took Tylenol for the pain. Patent reports that when we woke this morning he also felt generally weak and lightheaded. Patient reports reports having a unilateral headache behind the left eye. Patient denies having n, v, d, f, chest pain, shortness of breath, abd pain, urinary/bowel changes, falls, injuries. Patient has a history of a CVA with left sided weakness. This left sided weakness is chronic from his previous CVA. Patient reports that he does not have any new weakness that is unilateral today. The stroke score is 6, but is from his chronic CVA, not new. EMS has reported that his oxygen level was 86% on their arrival on [place]. Patient does not wear oxygen at home. Patient does report that his right carotid does have some blockage per patient. Onset Date: 05/25/20 Onset Time: 08:00 Duration: Day(s): (3) Location: Reports: Head, Neck Quality: Reports: Ache Severity: Moderate Improves with: Reports: None Worsens with: Reports: None Associated Symptoms: Reports: Headaches, Malaise, Weakness (generalized). Denies: Confusion, Chest Pain, Cough, cough w sputum, Diaphoresis, Fever/Chills, Loss of Appetite, Nausea/Vomiting, Rash, Seizure, Shortness of Breath, Syncope Treatments [employer]: Reports: Acetaminophen Headache Pain Score (Numeric/FACES): 5 - Related Data Allergies Allergy/AdvReac Type Severity Reaction Status Date / Time cephalexin Allergy Cannot Verified 05/28/20 11:52 Remember Home Meds: Home Meds Baclofen 5 mg PO BID 01/29/15 [History] Gabapentin [Neurontin] 200 mg PO BID 01/29/15 [History] Pantoprazole [ProTONIX] 40 mg PO ACBREAKFAST 01/29/15 [History] atorvaSTATin [Lipitor] 40 mg PO DAILY 01/29/15 [History] tiZANidine [Zanaflex] 4 mg PO BEDTIME 01/29/15 [History] traMADol HCl [Tramadol HCl] 50 mg PO BID PRN 01/29/15 [History] Ondansetron [Ondansetron ODT] 4 mg SL Q4H PRN 03/01/15 [History] Sertraline HCl 75 mg PO BEDTIME 10/18/15 [History] Albuterol [Ventolin HFA] 2 inh INH Q4H PRN 04/23/17 [History] polyethylene glycoL 3350 [Miralax] 8 gm PO DAILY 04/23/17 [History] levETIRAcetam [Keppra] 500 mg PO BID #60 tablet 04/24/17 [Rx] Albuterol Sulfate 1 vial INH Q6H PRN 07/20/18 [History] Budesonide/Formoterol [Symbicort 160-4.5 MCG] 2 puff INH BID 07/20/18 [History] Potassium Chloride 10 meq PO DAILY 07/20/18 [History] Tiotropium [Spiriva Handihaler] 1 inh INH DAILY 07/20/18 [History] Clopidogrel Bisulfate [Plavix] 75 mg PO DAILY #30 tablet 03/17/19 [Rx] ARIPiprazole [Abilify] 2 mg PO DAILY 05/28/20 [History] Past Medical History HEENT History: Reports: Cataract, Hard of Hearing Cardiovascular History: Reports: Blood Clots/VTE/DVT Respiratory History: Reports: Asthma, Pneumonia, Recurrent Gastrointestinal History: Reports: GERD Genitourinary History: Reports: None Musculoskeletal History: Reports: Neck Pain, Chronic Other Musculoskeletal History: 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 Social & Family History - Family History Family Medical History: No Pertinent Family History HEENT: Reports: Hearing Impairment, Impaired Vision Cardiac: Reports: Prior Cardiac Arrest Respiratory: Reports: PE - Caffeine Use Caffeine Use: Reports: Coffee ED ROS GENERAL - Review of Systems Review Of Systems: See Below Constitutional: Reports: Malaise, Weakness, Fatigue HEENT: Reports: No Symptoms Respiratory: Reports: No Symptoms Cardiovascular: Reports: Lightheadedness. Denies: Chest Pain, Dyspnea on Exertion, Edema, Syncope Endocrine: Reports: No Symptoms GI/Abdominal: Reports: No Symptoms. Denies: Abdominal Pain, Constipation, Diarrhea, Nausea, Vomiting : Reports: No Symptoms Musculoskeletal: Reports: Neck Pain Skin: Reports: No Symptoms Neurological: Reports: Headache (behind left eye), Weakness (generalized, NO NEW unilateral weakness per patient). Denies: Numbness, Tingling, Change in Speech Psychiatric: Reports: No Symptoms Hematologic/Lymphatic: Reports: No Symptoms Immunologic: Reports: No Symptoms ED EXAM, GENERAL - Physical Exam Exam: See Below Exam Limited By: No Limitations General Appearance: Alert, WD/WN, No Apparent Distress Eye Exam: Bilateral Eye: EOMI, Normal Inspection, PERRL Ears: Normal External Exam, Normal Canal, Hearing Grossly Normal, Normal TMs Ear Exam: Bilateral Ear: Auricle Normal, Canal Normal, TM normal Nose: Normal Inspection, Normal Mucosa, No Blood Throat/Mouth: Normal Inspection, Normal Lips, Normal Teeth, Normal Gums, Normal Oropharynx, Normal Voice, No Airway Compromise Head: Atraumatic, Normocephalic Neck: Normal Inspection, Supple, Non-Tender, Full Range of Motion Respiratory/Chest: No Respiratory Distress, Lungs Clear, Normal Breath Sounds, No Accessory Muscle Use, Chest Non-Tender Cardiovascular: Normal Peripheral Pulses, No Edema, No Gallop, No JVD, No Rub, Bradycardia (56 on exam), Systolic Murmur Peripheral Pulses: 2+: Radial (L), Radial (R), Posterior Tibial (L), Posterior Tibial (R) GI/Abdominal: Soft, Non-Tender, No Organomegaly Back Exam: Normal Inspection, Full Range of Motion Extremities: Normal Inspection, Non-Tender, No Pedal Edema, Normal Capillary Refill Neurological: Alert, Oriented, Other (Stroke score 6, due to sensation and left arm weakness. This is chronic per patient and is no worse than usual. He is fully alert and oriented. GCS 15. ) Psychiatric: Normal Affect, Normal Mood Skin Exam: Warm, Dry, Intact, Normal Color, No Rash Lymphatic: No Adenopathy #1 Interpretation EKG Date: 05/28/20 Time: 11:20 Rhythm: NSR Rate (Beats/Min): 58 ST-T: Normal Course - Vital Signs Last Recorded V/S: Last Vital Signs Temp 97.9 F 05/28/20 11:19 Pulse 56 L 05/28/20 12:45 Resp 16 05/28/20 12:45 BP 136/80 05/28/20 12:45 Pulse Ox 95 05/28/20 12:45 - Orders/Labs/Meds Orders: Active Orders 24 hr Category Date Time Status Chest 1V Frontal [CR] Stat Exams 05/28/20 11:16 Taken Head wo Cont [CT] Stat Exams 05/28/20 11:04 Taken CULTURE BLOOD [BC] Stat Lab 05/28/20 11:55 Received CULTURE BLOOD [BC] Stat Lab 05/28/20 11:55 Received INR,PT,PROTHROMBIN TIME [COAG] Stat Lab 05/28/20 11:55 Results PTT,PARTIAL THROMBOPLSTIN TIME [COAG] Stat Lab 05/28/20 11:55 Results TROPONIN I [CHEM] Stat Lab 05/28/20 14:15 Ordered UA W/MICROSCOPIC [URIN] Stat Lab 05/28/20 11:04 Ordered Blood Culture x2 Reflex Set [OM.PC] Stat Oth 05/28/20 11:15 Ordered Labs: Laboratory Tests 05/28/20 05/28/20 05/28/20 Range/Units 11:15 11:44 11:55 WBC 8.0 (5.0-10.0) 10^3/uL RBC 5.04 (4.50-6.00) 10^6/uL Hgb 15.1 (14.0-18.0) g/dL Hct 45.5 (40.0-54.0) % MCV 90.3 (82.0-94.0) fL MCH 30.0 (27.0-32.0) pg MCHC 33.2 (33.0-38.0) g/dL RDW Coeff of Felecia 13.5 (11.0-15.0) % Plt Count 225 (150-400) 10^3/uL Neut % (Auto) 70.2 (35-85) % Lymph % (Auto) 15.6 (10-55) % Person % (Auto) 11.8 (0-16) % Eos % (Auto) 2.3 (0-5) % Baso % (Auto) 0.1 (0-3) % Neut # (Auto) 5.62 (1.80-7.00) 10^3/uL Lymph # (Auto) 1.25 (1.00-4.80) 10^3/uL Person # (Auto) 0.94 H (0.00-0.80) 10^3/uL Eos # (Auto) 0.18 (0.00-0.45) 10^3/uL Baso # (Auto) 0.01 10^3/uL PT (9.7-12.3) SEC INR (0.92-1.18) Sodium (136-145) mEq/L Potassium (3.5-5.0) mEq/L Chloride (98-106) mEq/L Carbon Dioxide (21-32) mmol/L BUN (7-18) mg/dL Creatinine (0.7-1.3) mg/dL Est Cr Clr Drug Dosing mL/min Estimated GFR (MDRD) (>=60) mL/min Glucose (75-99) mg/dL Lactic Acid 1.3 (0.4-2.0) mmol/L Calcium (8.4-10.1) mg/dL Total Bilirubin (0.0-1.0) mg/dL AST (15-37) U/L ALT (12-78) U/L Alkaline Phosphatase (46-116) U/L Lactate Dehydrogenase (100-190) U/L Creatine Kinase (35-232) U/L Troponin I (0.00-0.06) ng/mL C-Reactive Protein (0.2-0.8) mg/dL Total Protein (6.4-8.2) g/dL Albumin (3.4-5.0) g/dL SARS CoV-2 RNA Rapid SHARI Negative (NEGATIVE) 05/28/20 05/28/20 Range/Units 11:55 11:55 WBC (5.0-10.0) 10^3/uL RBC (4.50-6.00) 10^6/uL Hgb (14.0-18.0) g/dL Hct (40.0-54.0) % MCV (82.0-94.0) fL MCH (27.0-32.0) pg MCHC (33.0-38.0) g/dL RDW Coeff of Felecia (11.0-15.0) % Plt Count (150-400) 10^3/uL Neut % (Auto) (35-85) % Lymph % (Auto) (10-55) % Person % (Auto) (0-16) % Eos % (Auto) (0-5) % Baso % (Auto) (0-3) % Neut # (Auto) (1.80-7.00) 10^3/uL Lymph # (Auto) (1.00-4.80) 10^3/uL Person # (Auto) (0.00-0.80) 10^3/uL Eos # (Auto) (0.00-0.45) 10^3/uL Baso # (Auto) 10^3/uL PT 11.3 (9.7-12.3) SEC INR 1.04 (0.92-1.18) Sodium 144 (136-145) mEq/L Potassium 3.6 (3.5-5.0) mEq/L Chloride 106 (98-106) mEq/L Carbon Dioxide 31 (21-32) mmol/L BUN 13 (7-18) mg/dL Creatinine 1.2 (0.7-1.3) mg/dL Est Cr Clr Drug Dosing 61.88 mL/min Estimated GFR (MDRD) > 60 (>=60) mL/min Glucose 94 (75-99) mg/dL Lactic Acid (0.4-2.0) mmol/L Calcium 9.0 (8.4-10.1) mg/dL Total Bilirubin 0.7 (0.0-1.0) mg/dL AST 14 L (15-37) U/L ALT 26 (12-78) U/L Alkaline Phosphatase 83 (46-116) U/L Lactate Dehydrogenase 202 H (100-190) U/L Creatine Kinase 52 (35-232) U/L Troponin I < 0.017 (0.00-0.06) ng/mL C-Reactive Protein 0.2 (0.2-0.8) mg/dL Total Protein 6.8 (6.4-8.2) g/dL Albumin 3.6 (3.4-5.0) g/dL SARS CoV-2 RNA Rapid SHARI (NEGATIVE) - Radiology Interpretation Free Text/Narrative:: Head CT: no acute findings. All chronic. CXR: No acute findings CT Results Date: 05/28/20 CT Results Time: 13:43 - Re-Assessments/Exams Free Text/Narrative Re-Assessment/Exam: 05/28/20 11:50 Patients reports currently now he has 0 pain. 0 pain in neck and 0 pain headache. When he arrived he was a 5/10 right neck pain and left eye headache pain. 05/28/20 13:39 Patient has been oxygen saturation 95% on RA while in the ER. He also reports he feels normal and fine his time in the ER. He reports he continues to have NO headache, lightheadedness, or weakness. He reports he feels his baseline normal. I have ordered a repeat troponin, if negative will discharge. All labs, ct, and cxr unremarkable. Discussed patient with PCP and he will see in 1 week. Patient is educated when to return to the ER. Departure - Departure Time of Disposition: 14:50 Disposition: Home, Self-Care 01 Condition: Fair Clinical Impression: Neck pain, Generalized weakness Headache Qualifiers: Headache type: unspecified Headache chronicity pattern: acute headache Intractability: not intractable Qualified Code(s): R51.9 - Headache, unspecified - Discharge Information *PRESCRIPTION DRUG MONITORING PROGRAM REVIEWED*: Not Applicable *COPY OF PRESCRIPTION DRUG MONITORING REPORT IN PATIENT JARETT: Not Applicable Instructions: Weakness, [id number], General Headache Without Cause, [id number] Forms: ED Department Discharge Additional Instructions: Followup with your primary care provider in about 1 week Return to the ER for worsening of condition or any emergent concerns such as increase in weakness, fever, chest pain, shortness of breath, or other concerns Go home and rest Tylenol as needed for pain Sepsis Event Note (ED) - Focused Exam Vital Signs: Vital Signs Temp Pulse Resp BP Pulse Ox 05/28/20 12:45 56 L 16 136/80 95 05/28/20 12:30 52 L 18 143/88 H 99 05/28/20 12:15 55 L 15 142/97 H 98 05/28/20 12:00 55 L 18 141/83 H 98 05/28/20 11:45 56 L 15 132/83 97 05/28/20 11:30 67 18 135/92 H 95 05/28/20 11:19 97.9 F 59 L 16 140/83 98 - My Orders Last 24 Hours: My Active Orders 05/28/20 11:04 Head wo Cont [CT] Stat UA W/MICROSCOPIC [URIN] Stat 05/28/20 11:15 Blood Culture x2 Reflex Set [OM.PC] Stat 05/28/20 11:16 Chest 1V Frontal [CR] Stat 05/28/20 11:55 CULTURE BLOOD [BC] Stat CULTURE BLOOD [BC] Stat INR,PT,PROTHROMBIN TIME [COAG] Stat PTT,PARTIAL THROMBOPLSTIN TIME [COAG] Stat 05/28/20 14:15 TROPONIN I [CHEM] Stat - Assessment/Plan Last 24 Hours: My Active Orders 05/28/20 11:04 Head wo Cont [CT] Stat UA W/MICROSCOPIC [URIN] Stat 05/28/20 11:15 Blood Culture x2 Reflex Set [OM.PC] Stat 05/28/20 11:16 Chest 1V Frontal [CR] Stat 05/28/20 11:55 CULTURE BLOOD [BC] Stat CULTURE BLOOD [BC] Stat INR,PT,PROTHROMBIN TIME [COAG] Stat PTT,PARTIAL THROMBOPLSTIN TIME [COAG] Stat 05/28/20 14:15 TROPONIN I [CHEM] Stat Plan: PLEASE SEE RN NOTE FOR PFSH
[2020-05-28 12:01] LABS: CHLORIDE,CL 106 mEq/L (98-106); SODIUM,NA 144 mEq/L (136-145)
[2020-05-28 12:46] VITALS: BP 136/80; PULSE 56
== END 2020-05-28 15:07 | disposition home or self-care (01) ==
LOC: CC.ED 11:19
DX: M54.2 Cervicalgia (principal); R53.1 Weakness; R51.9 Headache, unspecified; J45.909 Unspecified asthma, uncomplicated; K21.9 Gastro-esophageal reflux disease without esophagitis; Z86.73 Personal history of transient ischemic attack (TIA), and cerebral infarction without residual deficits; Z88.1 Allergy status to other antibiotic agents; Z79.899 Other long term (current) drug therapy; Z79.02 Long term (current) use of antithrombotics/antiplatelets; Z20.822 Contact with and (suspected) exposure to COVID-19
CPT/HCPCS: 36415; 70450; 71045; 80053; 81001; 82550; 83605; 83615; 84484; 85025; 85610; 86140; 87040; 93005; 93010; 99284; 99285-25; U0002

== ENCOUNTER 2020-11-03 17:55 | Emergency (ER) | payer MEDICARE, MEDICAID ==
[2020-11-03 18:14] VITALS: BP 131/64; PULSE 61
--- NOTE | 2020-11-03 18:27 | EDM.PDOC ---
ED HPI GENERAL MEDICAL PROBLEM - General Chief Complaint: General Stated Complaint: R Arm Redness Time Seen by Provider: 11/03/20 18:18 Source of Information: Reports: Patient, Family () History Limitations: Reports: No Limitations - History of Present Illness INITIAL COMMENTS - FREE TEXT/NARRATIVE: This patient is a pleasant 70 year old male that presents to the ER with at bedside. Patient reports that his noticed his Left upper arm was red and swollen. Patient reports he has some sensation to the LUE, but unable to move due to previous stroke. Patient denies pain at location. Patient has hx of CVA and DVT of lower extremity. Patient reports he takes Plavix. Patient denies n, v, d, f. He denies any other symptoms other than the LUE redness and swelling. Onset: Today Onset Date: 11/03/20 Duration: Hour(s): (1) Location: Reports: Upper Extremity, Left Severity: Mild Improves with: Reports: None Worsens with: Reports: None Associated Symptoms: Reports: No Other Symptoms - Related Data Allergies Allergy/AdvReac Type Severity Reaction Status Date / Time cephalexin Allergy Cannot Verified 11/03/20 18:13 Remember Home Meds: Home Meds Baclofen 5 mg PO BID 01/29/15 [History] Gabapentin [Neurontin] 200 mg PO BID 01/29/15 [History] Pantoprazole [ProTONIX] 40 mg PO ACBREAKFAST 01/29/15 [History] atorvaSTATin [Lipitor] 40 mg PO DAILY 01/29/15 [History] tiZANidine [Zanaflex] 4 mg PO BEDTIME 01/29/15 [History] traMADol HCl [Tramadol HCl] 50 mg PO BID PRN 01/29/15 [History] Ondansetron [Ondansetron ODT] 4 mg SL Q4H PRN 03/01/15 [History] Sertraline HCl 75 mg PO BEDTIME 10/18/15 [History] Albuterol [Ventolin HFA] 2 inh INH Q4H PRN 04/23/17 [History] polyethylene glycoL 3350 [Miralax] 8 gm PO DAILY 04/23/17 [History] levETIRAcetam [Keppra] 500 mg PO BID #60 tablet 04/24/17 [Rx] Albuterol Sulfate 1 vial INH Q6H PRN 07/20/18 [History] Budesonide/Formoterol [Symbicort 160-4.5 MCG] 2 puff INH BID 07/20/18 [History] Potassium Chloride 10 meq PO DAILY 07/20/18 [History] Tiotropium [Spiriva Handihaler] 1 inh INH DAILY 07/20/18 [History] Clopidogrel Bisulfate [Plavix] 75 mg PO DAILY #30 tablet 03/17/19 [Rx] ARIPiprazole [Abilify] 2 mg PO DAILY 05/28/20 [History] Past Medical History HEENT History: Reports: Cataract, Hard of Hearing Cardiovascular History: Reports: Blood Clots/VTE/DVT Respiratory History: Reports: Asthma, Pneumonia, Recurrent Gastrointestinal History: Reports: GERD Genitourinary History: Reports: None Musculoskeletal History: Reports: Neck Pain, Chronic Other Musculoskeletal History: 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 Social & Family History - Family History Family Medical History: No Pertinent Family History HEENT: Reports: Hearing Impairment, Impaired Vision Cardiac: Reports: Prior Cardiac Arrest Respiratory: Reports: PE - Caffeine Use Caffeine Use: Reports: Coffee ED ROS GENERAL - Review of Systems Review Of Systems: See Below Constitutional: Reports: No Symptoms. Denies: Fever HEENT: Reports: No Symptoms Respiratory: Reports: No Symptoms Cardiovascular: Reports: No Symptoms GI/Abdominal: Reports: No Symptoms Musculoskeletal: Reports: Other (left upper arm swelling, redness) Skin: Reports: Erythema (left upper arm, swelling) Neurological: Reports: No Symptoms Psychiatric: Reports: No Symptoms Hematologic/Lymphatic: Reports: No Symptoms Immunologic: Reports: No Symptoms ED EXAM, GENERAL - Physical Exam Exam: See Below Exam Limited By: No Limitations General Appearance: Alert, WD/WN, No Apparent Distress Head: Atraumatic, Normocephalic Neck: Normal Inspection, Supple Respiratory/Chest: No Respiratory Distress, Lungs Clear, Normal Breath Sounds, No Accessory Muscle Use Cardiovascular: Normal Peripheral Pulses, Regular Rate, Rhythm, No Edema, No Gallop, No JVD Peripheral Pulses: 2+: Carotid (L), Carotid (R), Radial (L), Radial (R) Extremities: Redness (left upper extremity with swelling. ) Neurological: Alert, Oriented, Other (Prexisting deficit left sided weakness, no changes. ) Psychiatric: Normal Affect, Normal Mood Skin Exam: Warm, Dry, Erythema (left upper extremity), Wound/Incision (small superifical abrasion left elbow) Course - Vital Signs Last Recorded V/S: Last Vital Signs Temp 97.7 F 11/03/20 18:02 Pulse 61 11/03/20 18:02 Resp 18 11/03/20 18:02 BP 131/64 11/03/20 18:02 Pulse Ox 96 11/03/20 18:02 - Orders/Labs/Meds Orders: Active Orders 24 hr Category Date Time Status VL Duplex Upr Ext Veins Ltd Lt [US] Stat Exams 11/03/20 18:19 Taken Meds: Medications Discontinued Medications Generic Name Dose Route Start Last Admin Trade Name Canq PRN Reason Stop Dose Admin Aspirin 325 mg 11/03/20 19:53 Aspirin 325 Mg Tab PO 11/03/20 19:54 ONETIME ONE - Re-Assessments/Exams Free Text/Narrative Re-Assessment/Exam: 11/03/20 19:26 Due to clot being superficial at Cephaloc and patient being on Plavix, wanted to discuss with Dr. Enrico Elliott. Superficial treatment would normally be ASA or Motrin and US in 7 days and followup with PCP. However, with patient hx of CVA and DVT, wanted to discuss being more aggressive. Dr. Weston reports could be more aggressive with Lovenox, but giving patient the option may be the best option after explaining risk vs benefits. I had this conversation with the p atient and at bedside. Explained all risks of bleeding, worsening of clot. Explained all benefits of both options as well. They report they do not want the bleeding risks and would do the ASA, and US image again on Thursday then see PCP after US. If worsens, then may need more aggressive treatment or consultation with vascular surgery. Will discharge home. Departure - Departure Time of Disposition: 19:30 Disposition: Home, Self-Care 01 Clinical Impression: Superficial venous thrombosis of left arm - Discharge Information *PRESCRIPTION DRUG MONITORING PROGRAM REVIEWED*: Not Applicable *COPY OF PRESCRIPTION DRUG MONITORING REPORT IN PATIENT JARETT: Not Applicable Instructions: Cellulitis, Adult, [id number] Referrals: Deshawn Hunter MD [Primary Care Provider] - Forms: ED Department Discharge Additional Instructions: Followup with your primary care provider on Thursday after Ultrasound of Left Upper Extremity Return to the ER for worsening of condition or any emergent concerns, such as increase in redness, shortness of breath, or other concerns Warm compresses as discussed to the red area Aspirin 325mg once a day, daily for 7 days Continue Plavix and all other medications as prescribed Sepsis Event Note (ED) - Evaluation Sepsis Screening Result: No Definite Risk - My Orders Last 24 Hours: My Active Orders 11/03/20 18:19 VL Duplex Upr Ext Veins Ltd Lt [US] Stat - Assessment/Plan Last 24 Hours: My Active Orders 11/03/20 18:19 VL Duplex Upr Ext Veins Ltd Lt [US] Stat Plan: PLEASE SEE RN NOTE FOR PFSH
[2020-11-03] MEDS ORDERED: Aspirin 325 MG Tab PO ONE (19:53)
== END 2020-11-03 20:10 | disposition home or self-care (01) ==
LOC: CC.ED 17:55
DX: I82.612 Acute embolism and thrombosis of superficial veins of left upper extremity (principal); S50.312A Abrasion of left elbow, initial encounter; J45.909 Unspecified asthma, uncomplicated; K21.9 Gastro-esophageal reflux disease without esophagitis; Z86.73 Personal history of transient ischemic attack (TIA), and cerebral infarction without residual deficits; Z88.1 Allergy status to other antibiotic agents; Z79.02 Long term (current) use of antithrombotics/antiplatelets; Z79.899 Other long term (current) drug therapy; X58.XXXA Exposure to other specified factors, initial encounter
CPT/HCPCS: 93971-LT; 99283-25; 99284

== ENCOUNTER 2021-01-13 14:09 | Inpatient (IN) | payer MEDICARE, MEDICAID ==
--- NOTE | 2021-01-13 15:20 | EDM.PDOC ---
ED HPI GENERAL MEDICAL PROBLEM - General Chief Complaint: Respiratory Problem Stated Complaint: cough/SOB Time Seen by Provider: 01/13/21 14:46 Source of Information: Reports: Patient History Limitations: Reports: No Limitations - History of Present Illness INITIAL COMMENTS - FREE TEXT/NARRATIVE: This patient is a 70 year old pleasant male that presents to the ER. Patient reports that started on with congestion, drainage, chest congestion, productive cough. Patient reports seen by his PCP and given injection and started on ZPak. Patient reports he has not improved and feels a little worse. Patient reports he has been feeling short of breath since night and has become worse. He reports his shortness of breath and amount of mucous production from cough has increased today. Onset: Gradual Onset Date: 01/10/21 Duration: Day(s): (3), Getting Worse Severity: Moderate Improves with: Reports: None Worsens with: Reports: None Associated Symptoms: Reports: Cough, cough w sputum, Malaise, Shortness of Breath, Weakness (generally). Denies: Confusion, Chest Pain, Diaphoresis, Fever/Chills, Headaches, Loss of Appetite, Nausea/Vomiting, Rash, Seizure, Syncope - Related Data Allergies Allergy/AdvReac Type Severity Reaction Status Date / Time cephalexin Allergy Cannot Verified 01/13/21 14:09 Remember Home Meds: Home Meds Baclofen 5 mg PO BID 01/29/15 [History] Gabapentin [Neurontin] 200 mg PO BID 01/29/15 [History] Pantoprazole [ProTONIX] 40 mg PO ACBREAKFAST 01/29/15 [History] atorvaSTATin [Lipitor] 40 mg PO DAILY 01/29/15 [History] tiZANidine [Zanaflex] 4 mg PO BEDTIME 01/29/15 [History] traMADol HCl [Tramadol HCl] 50 mg PO BID PRN 01/29/15 [History] Ondansetron [Ondansetron ODT] 4 mg SL Q4H PRN 03/01/15 [History] Sertraline HCl 75 mg PO BEDTIME 10/18/15 [History] Albuterol [Ventolin HFA] 2 inh INH Q4H PRN 04/23/17 [History] polyethylene glycoL 3350 [Miralax] 8 gm PO DAILY 04/23/17 [History] levETIRAcetam [Keppra] 500 mg PO BID #60 tablet 04/24/17 [Rx] Budesonide/Formoterol [Symbicort 160-4.5 MCG] 2 puff INH BID 07/20/18 [History] Potassium Chloride 10 meq PO DAILY 07/20/18 [History] Tiotropium [Spiriva Handihaler] 1 inh INH DAILY 07/20/18 [History] Clopidogrel Bisulfate [Plavix] 75 mg PO DAILY #30 tablet 03/17/19 [Rx] Past Medical History HEENT History: Reports: Cataract, Hard of Hearing Cardiovascular History: Reports: Blood Clots/VTE/DVT Respiratory History: Reports: Asthma, Pneumonia, Recurrent Gastrointestinal History: Reports: GERD Genitourinary History: Reports: None Musculoskeletal History: Reports: Neck Pain, Chronic Other Musculoskeletal History: 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 Social & Family History - Family History Family Medical History: No Pertinent Family History HEENT: Reports: Hearing Impairment, Impaired Vision Cardiac: Reports: Prior Cardiac Arrest Respiratory: Reports: PE - Caffeine Use Caffeine Use: Reports: None ED ROS GENERAL - Review of Systems Review Of Systems: See Below Constitutional: Reports: Weakness (general), Fatigue HEENT: Reports: Rhinitis, Sinus Problem Respiratory: Reports: Shortness of Breath, Cough, Sputum Cardiovascular: Reports: No Symptoms. Denies: Chest Pain, Dyspnea on Exertion, Edema, Lightheadedness, Palpitations, Syncope Endocrine: Reports: No Symptoms GI/Abdominal: Reports: No Symptoms. Denies: Abdominal Pain, Diarrhea, Nausea, Vomiting : Reports: No Symptoms Musculoskeletal: Reports: No Symptoms Skin: Reports: No Symptoms Neurological: Reports: No Symptoms Psychiatric: Reports: No Symptoms Hematologic/Lymphatic: Reports: No Symptoms Immunologic: Reports: No Symptoms ED EXAM, GENERAL - Physical Exam Exam: See Below Exam Limited By: No Limitations General Appearance: Alert, WD/WN, No Apparent Distress Eye Exam: Bilateral Eye: Normal Inspection, PERRL Ears: Normal External Exam, Normal Canal, Hearing Grossly Normal, Normal TMs Ear Exam: Bilateral Ear: Auricle Normal, Canal Normal, TM normal Nose: Normal Inspection, Normal Mucosa, No Blood Throat/Mouth: Normal Inspection, Normal Lips, Normal Teeth, Normal Gums, Normal Oropharynx, Normal Voice, No Airway Compromise Head: Atraumatic, Normocephalic Neck: Normal Inspection, Supple, Non-Tender, Full Range of Motion Respiratory/Chest: No Respiratory Distress, Decreased Breath Sounds (moderately throughout), Crackles (bilateral bases), Other (4L NC 92%. RN reports was 90% on arrival on RA. She reports he did not appear in distress on arrival.). No: No Accessory Muscle Use, Chest Non-Tender, Respiratory Distress Cardiovascular: Normal Peripheral Pulses, Regular Rate, Rhythm, No Edema, No Gallop, No JVD, No Murmur, No Rub Peripheral Pulses: 2+: Radial (L), Radial (R), Posterior Tibial (L), Posterior Tibial (R) GI/Abdominal: Soft, Non-Tender Back Exam: Normal Inspection Extremities: Normal Inspection, Normal Range of Motion, Non-Tender, No Pedal Edema, Normal Capillary Refill Neurological: Alert, Oriented, Normal Cognition, Other (hx strove with chronic weakness Left. Unchanged from baseline.) Psychiatric: Normal Affect, Normal Mood Skin Exam: Warm, Dry, Intact, Normal Color, No Rash Lymphatic: No Adenopathy #1 Interpretation EKG Date: 01/13/21 Time: 14:52 Rate (Beats/Min): 82 ST-T: Normal Course - Vital Signs Last Recorded V/S: Last Vital Signs Temp 99.3 F 01/13/21 14:16 Pulse 89 01/13/21 14:16 Resp 18 01/13/21 14:16 BP 135/78 01/13/21 14:16 Pulse Ox 94 L 01/13/21 14:34 - Orders/Labs/Meds Orders: Active Orders 24 hr Category Date Time Status Chest 2V [CR] Stat Exams 01/13/21 14:29 Taken CULTURE BLOOD [BC] Stat Lab 01/13/21 14:45 Received CULTURE BLOOD [BC] Stat Lab 01/13/21 14:50 Received CULTURE SPUTUM + SMEAR [RM] Stat Lab 01/13/21 15:20 Ordered Blood Culture x2 Reflex Set [OM.PC] Stat Oth 01/13/21 14:29 Ordered Labs: Laboratory Tests 01/13/21 01/13/21 01/13/21 Range/Units 14:29 14:45 14:45 WBC 12.6 H (4.0-11.0) 10^3/uL RBC 4.82 (4.50-6.00) x10^6/uL Hgb 14.3 (14.0-18.0) g/dL Hct 42.8 (42.0-52.0) % MCV 88.8 (83.0-97.0) fL MCH 29.7 (27.0-32.0) pg MCHC 33.4 (32.0-36.0) g/dL RDW Coeff of Felecia 13.5 (11.0-15.0) % Plt Count 198 (150-400) 10^3/uL Add Manual Diff Yes Neutrophils % (Manual) 86 H (35-85) % Band Neutrophils % 6 H (0-5) % Lymphocytes % (Manual) 2 L (21-55) % Monocytes % (Manual) 6 (2-12) % Sodium 143 (136-145) mEq/L Potassium 3.8 (3.5-5.0) mEq/L Chloride 104 (98-106) mEq/L Carbon Dioxide 25 (21-32) mmol/L BUN 27 H D (7-18) mg/dL Creatinine 1.3 (0.7-1.3) mg/dL Est Cr Clr Drug Dosing 52.87 mL/min Estimated GFR (MDRD) 55 L (>=60) mL/min Glucose 142 H D (75-99) mg/dL Lactic Acid (0.4-2.0) mmol/L Calcium 8.8 (8.4-10.1) mg/dL Total Bilirubin 0.9 (0.0-1.0) mg/dL AST 27 (15-37) U/L ALT 31 (12-78) U/L Alkaline Phosphatase 74 (46-116) U/L Lactate Dehydrogenase 247 H (100-190) U/L Creatine Kinase 475 H (35-232) U/L Troponin I High Sens 10.1 (<=76) pg/mL C-Reactive Protein 2.5 H (0.2-0.8) mg/dL Total Protein 7.1 (6.4-8.2) g/dL Albumin 3.7 (3.4-5.0) g/dL Influenza Type A RNA Negative (NEGATIVE) Influenza Type B RNA Negative (NEGATIVE) SARS-CoV-2 RNA (SHARI) Negative (NEGATIVE) 01/13/21 Range/Units 14:50 WBC (4.0-11.0) 10^3/uL RBC (4.50-6.00) x10^6/uL Hgb (14.0-18.0) g/dL Hct (42.0-52.0) % MCV (83.0-97.0) fL MCH (27.0-32.0) pg MCHC (32.0-36.0) g/dL RDW Coeff of Felecia (11.0-15.0) % Plt Count (150-400) 10^3/uL Add Manual Diff Neutrophils % (Manual) (35-85) % Band Neutrophils % (0-5) % Lymphocytes % (Manual) (21-55) % Monocytes % (Manual) (2-12) % Sodium (136-145) mEq/L Potassium (3.5-5.0) mEq/L Chloride (98-106) mEq/L Carbon Dioxide (21-32) mmol/L BUN (7-18) mg/dL Creatinine (0.7-1.3) mg/dL Est Cr Clr Drug Dosing mL/min Estimated GFR (MDRD) (>=60) mL/min Glucose (75-99) mg/dL Lactic Acid 1.5 (0.4-2.0) mmol/L Calcium (8.4-10.1) mg/dL Total Bilirubin (0.0-1.0) mg/dL AST (15-37) U/L ALT (12-78) U/L Alkaline Phosphatase (46-116) U/L Lactate Dehydrogenase (100-190) U/L Creatine Kinase (35-232) U/L Troponin I High Sens (<=76) pg/mL C-Reactive Protein (0.2-0.8) mg/dL Total Protein (6.4-8.2) g/dL Albumin (3.4-5.0) g/dL Influenza Type A RNA (NEGATIVE) Influenza Type B RNA (NEGATIVE) SARS-CoV-2 RNA (SHARI) (NEGATIVE) - Radiology Interpretation Free Text/Narrative:: CXR: possible bilateral infiltrates. No edema. COPD. - Re-Assessments/Exams Free Text/Narrative Re-Assessment/Exam: 01/13/21 15:45 I called and spoke to about admission of patient. He gave me permission to do so. She asked that I loo at his left arm where he had previous blood clot. Pulses +2, cap refill < 2 sec. Stroke with left arm weakness unchanged. No redness or heat to the LUE. No US capabilities this weekend explained to the . Patient currently on Plavix. Departure - Departure Time of Disposition: 15:32 Disposition: Admitted As Inpatient 66 Condition: Fair Clinical Impression: Hypoxia Pneumonia Qualifiers: Pneumonia type: due to unspecified organism Laterality: bilateral Lung location: lower lobe of lung Qualified Code(s): J18.9 - Pneumonia, unspecified organism - Discharge Information *PRESCRIPTION DRUG MONITORING PROGRAM REVIEWED*: Not Applicable *COPY OF PRESCRIPTION DRUG MONITORING REPORT IN PATIENT JARETT: Not Applicable Referrals: Deshawn Hunter MD [Primary Care Provider] - Forms: ED Department Discharge Sepsis Event Note (ED) - Evaluation Sepsis Screening Result: No Definite Risk - Focused Exam Vital Signs: Vital Signs Temp Pulse Resp BP Pulse Ox 01/13/21 14:34 94 L 01/13/21 14:16 99.3 F 89 18 135/78 90 L - My Orders Last 24 Hours: My Active Orders 01/13/21 14:29 Chest 2V [CR] Stat Blood Culture x2 Reflex Set [OM.PC] Stat 01/13/21 14:45 CULTURE BLOOD [BC] Stat 01/13/21 14:50 CULTURE BLOOD [BC] Stat 01/13/21 15:20 CULTURE SPUTUM + SMEAR [RM] Stat - Assessment/Plan Last 24 Hours: My Active Orders 01/13/21 14:29 Chest 2V [CR] Stat Blood Culture x2 Reflex Set [OM.PC] Stat 01/13/21 14:45 CULTURE BLOOD [BC] Stat 01/13/21 14:50 CULTURE BLOOD [BC] Stat 01/13/21 15:20 CULTURE SPUTUM + SMEAR [RM] Stat Plan: PLEASE SEE RN NOTE FOR PFSH PLEASE USE ER H&P ADMIT H&P
[2021-01-13 15:28] LABS: CORONAVIRUS COVID-19 NAA NEGATIVE (NEGATIVE)
[2021-01-13] MEDS ORDERED: methylPREDNISolone Sodium Succinate 125 MG/2 ML SDV IVPUSH SCH (16:00)
[2021-01-13] MEDS ORDERED: Albuterol 8 GM Inhaler INH PRN (16:19)
[2021-01-13] MEDS ORDERED: traMADol 50 MG Tab PO PRN (16:19)
[2021-01-13] MEDS ORDERED: Acetaminophen 325 MG Tab PO PRN (16:19)
[2021-01-13] MEDS ORDERED: Ondansetron 4 MG/2 ML SDV IV PRN (16:19)
[2021-01-13] MEDS ORDERED: Ibuprofen 200 MG Tab PO PRN (16:19)
[2021-01-13] MEDS: Levofloxacin/Dextrose 5%-Water 750 MG in Premix Bag 1 BAG IV SCH (16:48)
[2021-01-13] MEDS: Formoterol/Mometasone 200-5 MCG 8.8 GM Inhaler IH SCH (19:59)
[2021-01-13] MEDS ORDERED: Non-Formulary Medication 1 Each (Budesonide/Formoterol 6 GM Inhaler) INH SCH (20:00)
[2021-01-13] MEDS: Gabapentin 100 MG Cap PO SCH (20:08)
[2021-01-13] MEDS: tiZANidine 4 MG Tab PO SCH (20:08)
[2021-01-13] MEDS: levETIRAcetam 500 MG Tab PO SCH (20:08)
[2021-01-13] MEDS: Sertraline 25 MG Tab PO SCH (20:08)
[2021-01-13] MEDS: Baclofen 10 MG Tab PO SCH (20:08)
[2021-01-13] MEDS: Albuterol/Ipratropium 3.0-0.5 MG/3 ML Neb Soln NEB PRN (20:15)
[2021-01-14 07:24] LABS: CHLORIDE,CL 107 mEq/L (98-106); SODIUM,NA 144 mEq/L (136-145)
[2021-01-14] MEDS: Albuterol/Ipratropium 3.0-0.5 MG/3 ML Neb Soln NEB PRN (08:16)
[2021-01-14] MEDS: Formoterol/Mometasone 200-5 MCG 8.8 GM Inhaler IH SCH ×2 (08:16→19:53)
[2021-01-14] MEDS: methylPREDNISolone Sodium Succinate 125 MG/2 ML SDV IVPUSH SCH ×2 (08:16→19:53)
[2021-01-14] MEDS: Gabapentin 100 MG Cap PO SCH ×2 (08:17→19:53)
[2021-01-14] MEDS: Potassium Chloride 10 MEQ Tab.ER PO SCH (08:17)
[2021-01-14] MEDS: Pantoprazole 40 MG Tab.CR PO SCH (08:17)
[2021-01-14] MEDS: levETIRAcetam 500 MG Tab PO SCH ×2 (08:17→19:52)
[2021-01-14] MEDS: Clopidogrel 75 MG Tab PO SCH (08:17)
[2021-01-14] MEDS: atorvaSTATin 20 MG Tab PO SCH (08:18)
[2021-01-14] MEDS: Baclofen 10 MG Tab PO SCH ×2 (08:18→19:53)
[2021-01-14] MEDS: Polyethylene Glycol 3350 Powder 17 GM Packet PO SCH (08:19)
[2021-01-14] MEDS: Tiotropium Inhaler 18 MCG Inhalation Powder Cap Kit of 5 INH SCH (08:19)
--- NOTE | 2021-01-14 10:20 | PCM.PN ---
- General Info Date of Service: 01/14/21 Functional Status: Reports: Pain Controlled, Tolerating Diet, Ambulating (with assistance due to stroke chronic), Urinating - Review of Systems General: Reports: Fatigue HEENT: Reports: Post Nasal Drip, Sinus Congestion Pulmonary: Reports: Shortness of Breath, Cough, Sputum, Wheezing Cardiovascular: Reports: No Symptoms Gastrointestinal: Reports: No Symptoms Genitourinary: Reports: No Symptoms Musculoskeletal: Reports: No Symptoms Skin: Reports: No Symptoms Neurological: Reports: No Symptoms Psychiatric: Reports: No Symptoms - Patient Data Vitals - Most Recent: Last Vital Signs Temp 98.3 F 01/14/21 08:00 Pulse 74 01/14/21 08:00 Resp 18 01/14/21 08:00 BP 134/73 01/14/21 08:00 Pulse Ox 95 01/14/21 08:00 Weight - Most Recent: 185 lb 6.4 oz Lab Results Last 24 Hours: Laboratory Results - last 24 hr 01/13/21 01/13/21 01/13/21 Range/Units 14:29 14:45 14:45 WBC 12.6 H (4.0-11.0) 10^3/uL RBC 4.82 (4.50-6.00) x10^6/uL Hgb 14.3 (14.0-18.0) g/dL Hct 42.8 (42.0-52.0) % MCV 88.8 (83.0-97.0) fL MCH 29.7 (27.0-32.0) pg MCHC 33.4 (32.0-36.0) g/dL RDW Coeff of Felecia 13.5 (11.0-15.0) % Plt Count 198 (150-400) 10^3/uL Immature Gran % (Auto) (0.0-4.9) % Neut % (Auto) (41-71) % Lymph % (Auto) (24-44) % [place] % (Auto) (0-10) % Eos % (Auto) (0-6) % Baso % (Auto) (0-1) % Neut # (Auto) (1.80-8.00) x10^3/uL Lymph # (Auto) (0.60-5.00) 10^3/uL [place] # (Auto) (0.00-1.50) 10^3/uL Eos # (Auto) (0.00-1.50) 10^3/uL Baso # (Auto) (0.00-0.50) 10^3/uL Immature Gran # (Auto) (0.00-0.49) 10^3/uL Add Manual Diff Yes Neutrophils % (Manual) 86 H (35-85) % Band Neutrophils % 6 H (0-5) % Lymphocytes % (Manual) 2 L (21-55) % Monocytes % (Manual) 6 (2-12) % Sodium 143 (136-145) mEq/L Potassium 3.8 (3.5-5.0) mEq/L Chloride 104 (98-106) mEq/L Carbon Dioxide 25 (21-32) mmol/L BUN 27 H D (7-18) mg/dL Creatinine 1.3 (0.7-1.3) mg/dL Est Cr Clr Drug Dosing 52.87 mL/min Estimated GFR (MDRD) 55 L (>=60) mL/min Glucose 142 H D (75-99) mg/dL Lactic Acid (0.4-2.0) mmol/L Calcium 8.8 (8.4-10.1) mg/dL Total Bilirubin 0.9 (0.0-1.0) mg/dL AST 27 (15-37) U/L ALT 31 (12-78) U/L Alkaline Phosphatase 74 (46-116) U/L Lactate Dehydrogenase 247 H (100-190) U/L Creatine Kinase 475 H (35-232) U/L Troponin I High Sens 10.1 (<=76) pg/mL C-Reactive Protein 2.5 H (0.2-0.8) mg/dL Total Protein 7.1 (6.4-8.2) g/dL Albumin 3.7 (3.4-5.0) g/dL Influenza Type A RNA Negative (NEGATIVE) Influenza Type B RNA Negative (NEGATIVE) SARS-CoV-2 RNA (SHARI) Negative (NEGATIVE) 01/13/21 01/14/21 01/14/21 Range/Units 14:50 06:55 06:55 WBC 12.8 H (4.0-11.0) 10^3/uL RBC 4.56 (4.50-6.00) x10^6/uL Hgb 13.4 L (14.0-18.0) g/dL Hct 40.2 L (42.0-52.0) % MCV 88.2 (83.0-97.0) fL MCH 29.4 (27.0-32.0) pg MCHC 33.3 (32.0-36.0) g/dL RDW Coeff of Felecia 13.2 (11.0-15.0) % Plt Count 204 (150-400) 10^3/uL Immature Gran % (Auto) 0.5 (0.0-4.9) % Neut % (Auto) 84.3 H (41-71) % Lymph % (Auto) 5.8 L (24-44) % [place] % (Auto) 9.3 (0-10) % Eos % (Auto) 0.0 (0-6) % Baso % (Auto) 0.1 (0-1) % Neut # (Auto) 10.76 H (1.80-8.00) x10^3/uL Lymph # (Auto) 0.74 (0.60-5.00) 10^3/uL [place] # (Auto) 1.19 (0.00-1.50) 10^3/uL Eos # (Auto) 0.00 (0.00-1.50) 10^3/uL Baso # (Auto) 0.01 (0.00-0.50) 10^3/uL Immature Gran # (Auto) 0.06 (0.00-0.49) 10^3/uL Add Manual Diff Neutrophils % (Manual) (35-85) % Band Neutrophils % (0-5) % Lymphocytes % (Manual) (21-55) % Monocytes % (Manual) (2-12) % Sodium 144 (136-145) mEq/L Potassium 4.0 (3.5-5.0) mEq/L Chloride 107 H (98-106) mEq/L Carbon Dioxide 29 (21-32) mmol/L BUN 25 H (7-18) mg/dL Creatinine 1.1 (0.7-1.3) mg/dL Est Cr Clr Drug Dosing 64.52 mL/min Estimated GFR (MDRD) > 60 (>=60) mL/min Glucose 155 H (75-99) mg/dL Lactic Acid 1.5 (0.4-2.0) mmol/L Calcium 8.5 (8.4-10.1) mg/dL Total Bilirubin (0.0-1.0) mg/dL AST (15-37) U/L ALT (12-78) U/L Alkaline Phosphatase (46-116) U/L Lactate Dehydrogenase (100-190) U/L Creatine Kinase (35-232) U/L Troponin I High Sens (<=76) pg/mL C-Reactive Protein 5.4 H (0.2-0.8) mg/dL Total Protein (6.4-8.2) g/dL Albumin (3.4-5.0) g/dL Influenza Type A RNA (NEGATIVE) Influenza Type B RNA (NEGATIVE) SARS-CoV-2 RNA (SHARI) (NEGATIVE) Antoine Results Last 24 Hours: Microbiology 01/13/21 15:20 Gram Stain - Final Sputum - Expectorated Med Orders - Current: Current Medications Acetaminophen (Acetaminophen 325 Mg Tab) 650 mg PO Q4H PRN PRN Reason: Pain (Mild 1-3)/fever Albuterol (Albuterol 8 Gm Inhaler) 0 gm INH Q4H PRN PRN Reason: Shortness of Breath Albuterol/Ipratropium (Albuterol/Ipratropium 3.0-0.5 Mg/3 Ml Neb Soln) 3 ml NEB Q4H PRN PRN Reason: Shortness Of Breath/wheezing Last Admin: 01/14/21 08:16 Dose: 3 ml Documented by: Albuterol/Ipratropium (Albuterol/Ipratropium 3.0-0.5 Mg/3 Ml Neb Soln) 3 ml NEB TIDRT [facility] Atorvastatin Calcium (Atorvastatin 20 Mg Tab) 40 mg PO DAILY [facility] Last Admin: 01/14/21 08:18 Dose: 40 mg Documented by: Baclofen (Baclofen 10 Mg Tab) 5 mg PO BID [facility] Last Admin: 01/14/21 08:18 Dose: 5 mg Documented by: Clopidogrel Bisulfate (Clopidogrel 75 Mg Tab) 75 mg PO DAILY [facility] Last Admin: 01/14/21 08:17 Dose: 75 mg Documented by: Enoxaparin Sodium (Enoxaparin 40 Mg/0.4 Ml Syringe) 40 mg SUBCUT Q24H [facility] Gabapentin (Gabapentin 100 Mg Cap) 200 mg PO BID [facility] Last Admin: 10/18/21 08:17 Dose: 200 mg Documented by: Levofloxacin/Dextrose 750 mg/ (Premix) 150 mls @ 100 mls/hr IV Q24H [facility] Last Admin: 01/13/21 16:48 Dose: 100 mls/hr Documented by: Ibuprofen (Ibuprofen 200 Mg Tab) 600 mg PO Q6H PRN PRN Reason: Pain (mild 1-3) Levetiracetam (Levetiracetam 500 Mg Tab) 500 mg PO BID [facility] Last Admin: 01/14/21 08:17 Dose: 500 mg Documented by: Methylprednisolone Sodium Succinate (Methylprednisolone Sodium Succinate 125 Mg/2 Ml Sdv) 62.5 mg IVPUSH Q12H [facility] Last Admin: 01/14/21 08:16 Dose: 62.5 mg Documented by: Mometasone Furoate/Formoterol Fumar (Formoterol/Mometasone 200-5 Mcg 8.8 Gm Inhaler) 2 puff IH BID [facility] Last Admin: 01/14/21 08:16 Dose: 2 inhalation Documented by: Ondansetron HCl (Ondansetron 4 Mg/2 Ml Sdv) 4 mg IV Q6H PRN PRN Reason: Nausea/Vomiting Pantoprazole Sodium (Pantoprazole 40 Mg Tab.Cr) 40 mg PO ACBREAKFAST [facility] Last Admin: 01/14/21 08:17 Dose: 40 mg Documented by: Polyethylene Glycol (Polyethylene Glycol 3350 Powder 17 Gm Packet) 8 gm PO DAILY [facility] Last Admin: 01/14/21 08:19 Dose: Not Given Documented by: Potassium Chloride (Potassium Chloride 10 Meq Tab.Er) 10 meq PO DAILY [facility] Last Admin: 01/14/21 08:17 Dose: 10 meq Documented by: Sertraline HCl (Sertraline 25 Mg Tab) 75 mg PO BEDTIME [facility] Last Admin: 01/13/21 20:08 Dose: 75 mg Documented by: Tiotropium [place] (Tiotropium Inhaler 18 Mcg Inhalation Powder Cap Kit Of 5) 18 mcg INH DAILY [facility] Last Admin: 01/14/21 08:19 Dose: 18 mcg Documented by: Tizanidine HCl (Tizanidine 4 Mg Tab) 4 mg PO BEDTIME [facility] Last Admin: 01/13/21 20:08 Dose: 4 mg Documented by: Tramadol HCl (Tramadol 50 Mg Tab) 50 mg PO BID PRN PRN Reason: Pain Discontinued Medications Methylprednisolone Sodium Succinate (Methylprednisolone Sodium Succinate 125 Mg/2 Ml Sdv) 62.5 mg IVPUSH Q12H [facility] Last Admin: 01/13/21 16:48 Dose: 62.5 mg Documented by: - Exam Quality Assessment: Supplemental Oxygen General: Alert, Oriented, Cooperative Neck: Supple, Trachea Midline, No JVD Lungs: Decreased Breath Sounds (moderately throughout), Crackles (bilateral lower lobes), Wheezing (inspiratory and expiratory moderate throughout) Cardiovascular: Regular Rate, Regular Rhythm GI/Abdominal Exam: Soft, Non-Tender Back Exam: Normal Inspection, Full Range of Motion Extremities: Normal Inspection, Normal Range of Motion (with left sided weakness known chronic from cva. no change from baseline), Non-Tender, No Pedal Edema, Normal Capillary Refill Peripheral Pulses: 2+: Radial (L), Radial (R), Posterior Tibial (L), Posterior Tibial (R) Skin: Warm, Dry, Intact Neurological: Normal Speech, Other (left sided weakness chronic baseline cva hx.) Psy/Mental Status: Alert, Normal Affect, Normal Mood - Patient Data Lab Results Last 24 hrs: Laboratory Results - last 24 hr 01/13/21 01/13/21 01/13/21 Range/Units 14:29 14:45 14:45 WBC 12.6 H (4.0-11.0) 10^3/uL RBC 4.82 (4.50-6.00) x10^6/uL Hgb 14.3 (14.0-18.0) g/dL Hct 42.8 (42.0-52.0) % MCV 88.8 (83.0-97.0) fL MCH 29.7 (27.0-32.0) pg MCHC 33.4 (32.0-36.0) g/dL RDW Coeff of Felecia 13.5 (11.0-15.0) % Plt Count 198 (150-400) 10^3/uL Immature Gran % (Auto) (0.0-4.9) % Neut % (Auto) (41-71) % Lymph % (Auto) (24-44) % [place] % (Auto) (0-10) % Eos % (Auto) (0-6) % Baso % (Auto) (0-1) % Neut # (Auto) (1.80-8.00) x10^3/uL Lymph # (Auto) (0.60-5.00) 10^3/uL [place] # (Auto) (0.00-1.50) 10^3/uL Eos # (Auto) (0.00-1.50) 10^3/uL Baso # (Auto) (0.00-0.50) 10^3/uL Immature Gran # (Auto) (0.00-0.49) 10^3/uL Add Manual Diff Yes Neutrophils % (Manual) 86 H (35-85) % Band Neutrophils % 6 H (0-5) % Lymphocytes % (Manual) 2 L (21-55) % Monocytes % (Manual) 6 (2-12) % Sodium 143 (136-145) mEq/L Potassium 3.8 (3.5-5.0) mEq/L Chloride 104 (98-106) mEq/L Carbon Dioxide 25 (21-32) mmol/L BUN 27 H D (7-18) mg/dL Creatinine 1.3 (0.7-1.3) mg/dL Est Cr Clr Drug Dosing 52.87 mL/min Estimated GFR (MDRD) 55 L (>=60) mL/min Glucose 142 H D (75-99) mg/dL Lactic Acid (0.4-2.0) mmol/L Calcium 8.8 (8.4-10.1) mg/dL Total Bilirubin 0.9 (0.0-1.0) mg/dL AST 27 (15-37) U/L ALT 31 (12-78) U/L Alkaline Phosphatase 74 (46-116) U/L Lactate Dehydrogenase 247 H (100-190) U/L Creatine Kinase 475 H (35-232) U/L Troponin I High Sens 10.1 (<=76) pg/mL C-Reactive Protein 2.5 H (0.2-0.8) mg/dL Total Protein 7.1 (6.4-8.2) g/dL Albumin 3.7 (3.4-5.0) g/dL Influenza Type A RNA Negative (NEGATIVE) Influenza Type B RNA Negative (NEGATIVE) SARS-CoV-2 RNA (SHARI) Negative (NEGATIVE) 10/17/21 10/18/21 10/18/21 Range/Units 14:50 06:55 06:55 WBC 12.8 H (4.0-11.0) 10^3/uL RBC 4.56 (4.50-6.00) x10^6/uL Hgb 13.4 L (14.0-18.0) g/dL Hct 40.2 L (42.0-52.0) % MCV 88.2 (83.0-97.0) fL MCH 29.4 (27.0-32.0) pg MCHC 33.3 (32.0-36.0) g/dL RDW Coeff of Felecia 13.2 (11.0-15.0) % Plt Count 204 (150-400) 10^3/uL Immature Gran % (Auto) 0.5 (0.0-4.9) % Neut % (Auto) 84.3 H (41-71) % Lymph % (Auto) 5.8 L (24-44) % [place] % (Auto) 9.3 (0-10) % Eos % (Auto) 0.0 (0-6) % Baso % (Auto) 0.1 (0-1) % Neut # (Auto) 10.76 H (1.80-8.00) x10^3/uL Lymph # (Auto) 0.74 (0.60-5.00) 10^3/uL [place] # (Auto) 1.19 (0.00-1.50) 10^3/uL Eos # (Auto) 0.00 (0.00-1.50) 10^3/uL Baso # (Auto) 0.01 (0.00-0.50) 10^3/uL Immature Gran # (Auto) 0.06 (0.00-0.49) 10^3/uL Add Manual Diff Neutrophils % (Manual) (35-85) % Band Neutrophils % (0-5) % Lymphocytes % (Manual) (21-55) % Monocytes % (Manual) (2-12) % Sodium 144 (136-145) mEq/L Potassium 4.0 (3.5-5.0) mEq/L Chloride 107 H (98-106) mEq/L Carbon Dioxide 29 (21-32) mmol/L BUN 25 H (7-18) mg/dL Creatinine 1.1 (0.7-1.3) mg/dL Est Cr Clr Drug Dosing 64.52 mL/min Estimated GFR (MDRD) > 60 (>=60) mL/min Glucose 155 H (75-99) mg/dL Lactic Acid 1.5 (0.4-2.0) mmol/L Calcium 8.5 (8.4-10.1) mg/dL Total Bilirubin (0.0-1.0) mg/dL AST (15-37) U/L ALT (12-78) U/L Alkaline Phosphatase (46-116) U/L Lactate Dehydrogenase (100-190) U/L Creatine Kinase (35-232) U/L Troponin I High Sens (<=76) pg/mL C-Reactive Protein 5.4 H (0.2-0.8) mg/dL Total Protein (6.4-8.2) g/dL Albumin (3.4-5.0) g/dL Influenza Type A RNA (NEGATIVE) Influenza Type B RNA (NEGATIVE) SARS-CoV-2 RNA (SHARI) (NEGATIVE) Result Diagrams: 01/14/21 06:55 01/14/21 06:55 Antoine Results Last 24 hrs: Microbiology 01/13/21 15:20 Gram Stain - Final Sputum - Expectorated Sepsis Event Note - Evaluation Sepsis Screening Result: No Definite Risk - Focused Exam Vital Signs: Vital Signs Temp Pulse Resp BP Pulse Ox 01/14/21 08:00 98.3 F 74 18 134/73 95 01/14/21 04:00 97.9 F 55 L 18 114/62 94 L 01/14/21 00:00 98 F 62 18 118/62 95 - Problem List Review Problem List Initiated/Reviewed/Updated: Yes - My Orders Last 24 Hours: My Active Orders 01/13/21 14:29 Chest 2V [CR] Stat Blood Culture x2 Reflex Set [OM.PC] Stat 01/13/21 14:45 CULTURE BLOOD [BC] Stat 01/13/21 14:50 CULTURE BLOOD [BC] Stat 01/13/21 15:20 CULTURE SPUTUM + SMEAR [RM] Stat 01/13/21 15:47 Resuscitation Status Routine 01/13/21 16:00 Levofloxacin/Dextrose 5%-Water [Levaquin in D5W 750 MG/150 ML] 750 mg Premix Bag 1 bag IV Q24H 01/13/21 16:19 Acetaminophen [TylenoL] 650 mg PO Q4H PRN Albuterol [Ventolin HFA] 0 gm INH Q4H PRN Albuterol/Ipratropium [DuoNeb 3.0-0.5 MG/3 ML] 3 ml NEB Q4H PRN Ibuprofen [Motrin] 600 mg PO Q6H PRN Ondansetron [Zofran] 4 mg IV Q6H PRN traMADol [Ultram] 50 mg PO BID PRN 01/13/21 16:19 Patient Status [ADT] Routine Antiembolic Devices [RC] 1000,2200 Cardiac Monitoring [RC] 0800,2000 Notify Provider Vital Signs [RC] .PRN Oxygen Therapy [RC] 2355 RT Aerosol Therapy [RC] .PRN Up With Assistance [RC] .PRN Up to Chair [RC] .PRN Vital Signs [RC] 0000,0400,0800,1200,1600,2000 Antiembolic Hose [OM.PC] Per Unit Routine 01/13/21 Dinner Heart Healthy Diet [DIET] 01/13/21 20:00 Baclofen [Lioresal] 5 mg PO BID Gabapentin [Neurontin] 200 mg PO BID Mometasone/Formoterol [Dulera 200-5 MCG] 2 puff IH BID Sertraline [Zoloft] 75 mg PO BEDTIME levETIRAcetam [Keppra] 500 mg PO BID tiZANidine [Zanaflex] 4 mg PO BEDTIME 01/14/21 07:00 Pantoprazole [ProTONIX] 40 mg PO ACBREAKFAST 01/14/21 08:00 Clopidogrel [Plavix] 75 mg PO DAILY Potassium Chloride [Klor-Con 10] 10 meq PO DAILY Tiotropium [Spiriva HandiHaler] 18 mcg INH DAILY atorvaSTATin [Lipitor] 40 mg PO DAILY methylPREDNISolone Sod Succ [Solu-MEDROL] 62.5 mg IVPUSH Q12H polyethylene glycoL 3350 [MiraLAX] 8 gm PO DAILY 01/14/21 10:14 RT Aerosol Therapy [RC] ASDIRECTED 01/14/21 12:00 Enoxaparin [Lovenox] 40 mg SUBCUT Q24H 01/14/21 14:00 Albuterol/Ipratropium [DuoNeb 3.0-0.5 MG/3 ML] 3 ml NEB TIDRT 01/15/21 05:00 BASIC METABOLIC PANEL,BMP [CHEM] DAILY CBC WITH AUTO DIFF [HEME] DAILY CRP [C-REACTIVE PROTEIN] [CHEM] DAILY 01/16/21 05:00 BASIC METABOLIC PANEL,BMP [CHEM] DAILY CBC WITH AUTO DIFF [HEME] DAILY CRP [C-REACTIVE PROTEIN] [CHEM] DAILY - Plan Plan:: 12/1820 [id number] This patient is a pleasant patient admitted yesterday for pneumonia. Patient today reports he is breathing better and moving more air. Patient reports coughing up a lot of mucous. Awaiting Sensitivity report for sputum culture. The patient reports feeling congested in his chest. Patient is on oxygen 3L NC at 95%. Does not appear to distressed. He is able to converse in complete sentences. Patient labs are unremarkable and not much changed from yesterday. Labs today are wbc 12.8, CH 107, BUN 25, CRP 5.4. Will continue with nebs and ab x. Will continue admit.
[2021-01-14] MEDS: Enoxaparin 40 MG/0.4 ML Syringe SUBCUT SCH (12:07)
[2021-01-14] MEDS: Albuterol/Ipratropium 3.0-0.5 MG/3 ML Neb Soln NEB SCH ×2 (13:18→19:53)
[2021-01-14] MEDS: Levofloxacin/Dextrose 5%-Water 750 MG in Premix Bag 1 BAG IV SCH (16:16)
[2021-01-14] MEDS: Sertraline 25 MG Tab PO SCH (19:53)
[2021-01-14] MEDS: tiZANidine 4 MG Tab PO SCH (19:53)
[2021-01-15 07:38] LABS: CHLORIDE,CL 106 mEq/L (98-106); SODIUM,NA 143 mEq/L (136-145)
[2021-01-15] MEDS: Clopidogrel 75 MG Tab PO SCH (08:01)
[2021-01-15] MEDS: Potassium Chloride 10 MEQ Tab.ER PO SCH (08:01)
[2021-01-15] MEDS: Pantoprazole 40 MG Tab.CR PO SCH (08:01)
[2021-01-15] MEDS: atorvaSTATin 20 MG Tab PO SCH (08:01)
[2021-01-15] MEDS: Baclofen 10 MG Tab PO SCH ×2 (08:02→19:40)
[2021-01-15] MEDS: Gabapentin 100 MG Cap PO SCH ×2 (08:02→19:41)
[2021-01-15] MEDS: levETIRAcetam 500 MG Tab PO SCH ×2 (08:02→19:40)
[2021-01-15] MEDS: Formoterol/Mometasone 200-5 MCG 8.8 GM Inhaler IH SCH ×2 (08:03→20:00)
[2021-01-15] MEDS: Albuterol/Ipratropium 3.0-0.5 MG/3 ML Neb Soln NEB SCH ×3 (08:03→19:40)
[2021-01-15] MEDS: methylPREDNISolone Sodium Succinate 125 MG/2 ML SDV IVPUSH SCH ×2 (08:03→19:29)
[2021-01-15] MEDS: Polyethylene Glycol 3350 Powder 17 GM Packet PO SCH (08:04)
[2021-01-15] MEDS: Tiotropium Inhaler 18 MCG Inhalation Powder Cap Kit of 5 INH SCH (08:04)
--- NOTE | 2021-01-15 10:27 | PCM.PN ---
- General Info Date of Service: 01/15/21 Admission Dx/Problem (Free Text): Pneumonia Subjective Update: Damion is a 70 yo male who was admitted to the hospital on the with pneumonia. Patient has been on Levaquin. He states he is doing better today than he was yesterday, feels as if he is improving. Oxygen was on 3 Liters yesterday and currently down to 2 Liters today. He has no concerning complaints. States he has been going to the bathroom without difficulty. Bowel movements are loose. Functional Status: Reports: Pain Controlled, Tolerating Diet, Ambulating, U rinating - Review of Systems General: Reports: Weakness. Denies: Fever HEENT: Reports: No Symptoms Pulmonary: Reports: Shortness of Breath, Cough, Sputum (less than on admit) Cardiovascular: Reports: No Symptoms Gastrointestinal: Reports: Diarrhea. Denies: Abdominal Pain, Constipation, Decreased Appetite Genitourinary: Reports: No Symptoms Musculoskeletal: Reports: No Symptoms Neurological: Reports: Pre-Existing Deficit - Patient Data Vitals - Most Recent: Last Vital Signs Temp 98.4 F 01/15/21 08:00 Pulse 81 01/15/21 08:00 Resp 18 01/15/21 08:00 BP 134/79 01/15/21 08:00 Pulse Ox 96 01/15/21 08:00 Weight - Most Recent: 185 lb 6.4 oz Lab Results Last 24 Hours: Laboratory Results - last 24 hr 01/15/21 01/15/21 Range/Units 07:00 07:00 WBC 14.7 H (4.0-11.0) 10^3/uL RBC 4.59 (4.50-6.00) x10^6/uL Hgb 13.7 L (14.0-18.0) g/dL Hct 40.3 L (42.0-52.0) % MCV 87.8 (83.0-97.0) fL MCH 29.8 (27.0-32.0) pg MCHC 34.0 (32.0-36.0) g/dL RDW Coeff of Felecia 13.1 (11.0-15.0) % Plt Count 206 (150-400) 10^3/uL Immature Gran % (Auto) 0.7 (0.0-4.9) % Neut % (Auto) 89.4 H (41-71) % Lymph % (Auto) 5.6 L (24-44) % [place] % (Auto) 4.2 (0-10) % Eos % (Auto) 0.0 (0-6) % Baso % (Auto) 0.1 (0-1) % Neut # (Auto) 13.11 H (1.80-8.00) x10^3/uL Lymph # (Auto) 0.82 (0.60-5.00) 10^3/uL [place] # (Auto) 0.62 (0.00-1.50) 10^3/uL Eos # (Auto) 0.00 (0.00-1.50) 10^3/uL Baso # (Auto) 0.01 (0.00-0.50) 10^3/uL Immature Gran # (Auto) 0.10 (0.00-0.49) 10^3/uL Sodium 143 (136-145) mEq/L Potassium 4.0 (3.5-5.0) mEq/L Chloride 106 (98-106) mEq/L Carbon Dioxide 28 (21-32) mmol/L BUN 23 H (7-18) mg/dL Creatinine 1.1 (0.7-1.3) mg/dL Est Cr Clr Drug Dosing 64.52 mL/min Estimated GFR (MDRD) > 60 (>=60) mL/min Glucose 188 H (75-99) mg/dL Calcium 8.2 L (8.4-10.1) mg/dL C-Reactive Protein 2.8 H (0.2-0.8) mg/dL Antoine Results Last 24 Hours: Microbiology 01/13/21 15:20 Gram Stain - Final Sputum - Expectorated Sputum Culture - Preliminary 01/13/21 14:50 Aerobic Blood Culture - Preliminary Blood - Venous - Lab Draw NO GROWTH AFTER 1 DAY Anaerobic Blood Culture - Preliminary NO GROWTH AFTER 1 DAY 01/13/21 14:45 Aerobic Blood Culture - Preliminary Blood - Venous NO GROWTH AFTER 1 DAY Anaerobic Blood Culture - Preliminary NO GROWTH AFTER 1 DAY Med Orders - Current: Current Medications Acetaminophen (Acetaminophen 325 Mg Tab) 650 mg PO Q4H PRN PRN Reason: Pain (Mild 1-3)/fever Albuterol (Albuterol 8 Gm Inhaler) 0 gm INH Q4H PRN PRN Reason: Shortness of Breath Albuterol/Ipratropium (Albuterol/Ipratropium 3.0-0.5 Mg/3 Ml Neb Soln) 3 ml NEB Q4H PRN PRN Reason: Shortness Of Breath/wheezing Last Admin: 01/14/21 08:16 Dose: 3 ml Documented by: Albuterol/Ipratropium (Albuterol/Ipratropium 3.0-0.5 Mg/3 Ml Neb Soln) 3 ml NEB TIDRT [facility] Last Admin: 01/15/21 08:03 Dose: 3 ml Documented by: Atorvastatin Calcium (Atorvastatin 20 Mg Tab) 40 mg PO DAILY [facility] Last Admin: 01/15/21 08:01 Dose: 40 mg Documented by: Baclofen (Baclofen 10 Mg Tab) 5 mg PO BID [facility] Last Admin: 01/15/21 08:02 Dose: 5 mg Documented by: Clopidogrel Bisulfate (Clopidogrel 75 Mg Tab) 75 mg PO DAILY [facility] Last Admin: 01/15/21 08:01 Dose: 75 mg Documented by: Enoxaparin Sodium (Enoxaparin 40 Mg/0.4 Ml Syringe) 40 mg SUBCUT Q24H [facility] Last Admin: 01/14/21 12:07 Dose: 40 mg Documented by: Gabapentin (Gabapentin 100 Mg Cap) 200 mg PO BID [facility] Last Admin: 01/15/21 08:02 Dose: 200 mg Documented by: Levofloxacin/Dextrose 750 mg/ (Premix) 150 mls @ 100 mls/hr IV Q24H [facility] Last Admin: 01/14/21 16:16 Dose: 100 mls/hr Documented by: Ibuprofen (Ibuprofen 200 Mg Tab) 600 mg PO Q6H PRN PRN Reason: Pain (mild 1-3) Levetiracetam (Levetiracetam 500 Mg Tab) 500 mg PO BID [facility] Last Admin: 01/15/21 08:02 Dose: 500 mg Documented by: Methylprednisolone Sodium Succinate (Methylprednisolone Sodium Succinate 125 Mg/2 Ml Sdv) 62.5 mg IVPUSH Q12H [facility] Last Admin: 01/15/21 08:03 Dose: 62.5 mg Documented by: Mometasone Furoate/Formoterol Fumar (Formoterol/Mometasone 200-5 Mcg 8.8 Gm Inhaler) 2 puff IH BID [facility] Last Admin: 01/15/21 08:03 Dose: 2 inhalation Documented by: Ondansetron HCl (Ondansetron 4 Mg/2 Ml Sdv) 4 mg IV Q6H PRN PRN Reason: Nausea/Vomiting Pantoprazole Sodium (Pantoprazole 40 Mg Tab.Cr) 40 mg PO ACBREAKFAST [facility] Last Admin: 01/15/21 08:01 Dose: 40 mg Documented by: Polyethylene Glycol (Polyethylene Glycol 3350 Powder 17 Gm Packet) 8 gm PO DAILY [facility] Last Admin: 01/15/21 08:04 Dose: Not Given Documented by: Potassium Chloride (Potassium Chloride 10 Meq Tab.Er) 10 meq PO DAILY [facility] Last Admin: 01/15/21 08:01 Dose: 10 meq Documented by: Sertraline HCl (Sertraline 25 Mg Tab) 75 mg PO BEDTIME [facility] Last Admin: 01/14/21 19:53 Dose: 75 mg Documented by: Tiotropium [place] (Tiotropium Inhaler 18 Mcg Inhalation Powder Cap Kit Of 5) 18 mcg INH DAILY [facility] Last Admin: 01/15/21 08:04 Dose: 18 mcg Documented by: Tizanidine HCl (Tizanidine 4 Mg Tab) 4 mg PO BEDTIME [facility] Last Admin: 01/14/21 19:53 Dose: 4 mg Documented by: Tramadol HCl (Tramadol 50 Mg Tab) 50 mg PO BID PRN PRN Reason: Pain Discontinued Medications Methylprednisolone Sodium Succinate (Methylprednisolone Sodium Succinate 125 Mg/2 Ml Sdv) 62.5 mg IVPUSH Q12H [facility] Last Admin: 01/13/21 16:48 Dose: 62.5 mg Documented by: - Exam Quality Assessment: Supplemental Oxygen General: Alert, Oriented, Cooperative, No Acute Distress Lungs: Normal Respiratory Effort, Decreased Breath Sounds, Rhonchi Cardiovascular: Regular Rate, Regular Rhythm, No Murmurs GI/Abdominal Exam: Normal Bowel Sounds, Soft, Non-Tender, No Organomegaly, No Distention Extremities: Other (swelling noted to the LUE, no signs of secondary cellulitis. Bruising noted to lateral proximal forearm. ). No: Increased Warmth, Redness Peripheral Pulses: 2+: Radial (L) Skin: Warm, Dry, Intact Neurological: No New Focal Deficit Psy/Mental Status: Alert, Normal Affect, Normal Mood - Patient Data Lab Results Last 24 hrs: Laboratory Results - last 24 hr 01/15/21 01/15/21 Range/Units 07:00 07:00 WBC 14.7 H (4.0-11.0) 10^3/uL RBC 4.59 (4.50-6.00) x10^6/uL Hgb 13.7 L (14.0-18.0) g/dL Hct 40.3 L (42.0-52.0) % MCV 87.8 (83.0-97.0) fL MCH 29.8 (27.0-32.0) pg MCHC 34.0 (32.0-36.0) g/dL RDW Coeff of Felecia 13.1 (11.0-15.0) % Plt Count 206 (150-400) 10^3/uL Immature Gran % (Auto) 0.7 (0.0-4.9) % Neut % (Auto) 89.4 H (41-71) % Lymph % (Auto) 5.6 L (24-44) % [place] % (Auto) 4.2 (0-10) % Eos % (Auto) 0.0 (0-6) % Baso % (Auto) 0.1 (0-1) % Neut # (Auto) 13.11 H (1.80-8.00) x10^3/uL Lymph # (Auto) 0.82 (0.60-5.00) 10^3/uL [place] # (Auto) 0.62 (0.00-1.50) 10^3/uL Eos # (Auto) 0.00 (0.00-1.50) 10^3/uL Baso # (Auto) 0.01 (0.00-0.50) 10^3/uL Immature Gran # (Auto) 0.10 (0.00-0.49) 10^3/uL Sodium 143 (136-145) mEq/L Potassium 4.0 (3.5-5.0) mEq/L Chloride 106 (98-106) mEq/L Carbon Dioxide 28 (21-32) mmol/L BUN 23 H (7-18) mg/dL Creatinine 1.1 (0.7-1.3) mg/dL Est Cr Clr Drug Dosing 64.52 mL/min Estimated GFR (MDRD) > 60 (>=60) mL/min Glucose 188 H (75-99) mg/dL Calcium 8.2 L (8.4-10.1) mg/dL C-Reactive Protein 2.8 H (0.2-0.8) mg/dL Result Diagrams: 01/15/21 07:00 01/15/21 07:00 Antoine Results Last 24 hrs: Microbiology 01/13/21 15:20 Gram Stain - Final Sputum - Expectorated Sputum Culture - Preliminary 01/13/21 14:50 Aerobic Blood Culture - Preliminary Blood - Venous - Lab Draw NO GROWTH AFTER 1 DAY Anaerobic Blood Culture - Preliminary NO GROWTH AFTER 1 DAY 01/13/21 14:45 Aerobic Blood Culture - Preliminary Blood - Venous NO GROWTH AFTER 1 DAY Anaerobic Blood Culture - Preliminary NO GROWTH AFTER 1 DAY Sepsis Event Note - Evaluation Sepsis Screening Result: No Definite Risk - Focused Exam Vital Signs: Vital Signs Temp Pulse Resp BP Pulse Ox 01/15/21 08:00 98.4 F 81 18 134/79 96 01/15/21 03:28 97.6 F 64 18 116/62 94 L 01/15/21 00:00 97.8 F 58 L 18 118/68 95 - Problem List & Annotations (1) Pneumonia SNOMED Code(s): 981327979 Code(s): J18.9 - PNEUMONIA, UNSPECIFIED ORGANISM Status: Acute Current Visit: No Qualifiers: Pneumonia type: due to unspecified organism Laterality: bilateral Lung location: lower lobe of lung Qualified Code(s): J18.9 - Pneumonia, unspecified organism - Problem List Review Problem List Initiated/Reviewed/Updated: Yes - My Orders Last 24 Hours: My Active Orders 01/15/21 10:20 RT Incentive Spirometry [RC] Q2HWA PT Evaluation and Treatment [CONS] Routine - Plan Plan:: 12/1820 1005am This patient is a pleasant patient admitted yesterday for pneumonia. Patient today reports he is breathing better and moving more air. Patient reports coughing up a lot of mucous. Awaiting Sensitivity report for sputum culture. The patient reports feeling congested in his chest. Patient is on oxygen 3L NC at 95%. Does not appear to distressed. He is able to converse in complete sentences. Patient labs are unremarkable and not much changed from yesterday. Labs today are wbc 12.8, CH 107, BUN 25, CRP 5.4. Will continue with nebs and abx. Will continue admit. 01/15/21 10:28 Damion appears to be doing better today. Continues to have adventitious lung sounds. Waiting for sensitivity report. Patient currently on 2 liter per nasal canula, down from 3 liters yesterday. He shows no sign of distress. Will discuss with Dr. Hunter current antibiotics as we wait for the sensitivity report. Labs continue to show an elevated WBC, slightly up from yesterday along with CRP. W ill order physical therapy for strengthening and spirometry q2h while awake.
[2021-01-15] MEDS: Enoxaparin 40 MG/0.4 ML Syringe SUBCUT SCH (13:17)
[2021-01-15] MEDS: Levofloxacin/Dextrose 5%-Water 750 MG in Premix Bag 1 BAG IV SCH (15:48)
[2021-01-15] MEDS ORDERED: Levofloxacin/Dextrose 5%-Water 150 ML IV ONE (16:07)
[2021-01-15] MEDS: Sertraline 25 MG Tab PO SCH (19:41)
[2021-01-15] MEDS: tiZANidine 4 MG Tab PO SCH (19:41)
[2021-01-16] MEDS: Pantoprazole 40 MG Tab.CR PO SCH (06:09)
[2021-01-16 07:20] LABS: CHLORIDE,CL 106 mEq/L (98-106); SODIUM,NA 143 mEq/L (136-145)
[2021-01-16] MEDS: atorvaSTATin 20 MG Tab PO SCH (07:45)
[2021-01-16] MEDS: Baclofen 10 MG Tab PO SCH ×2 (07:45→19:29)
[2021-01-16] MEDS: Gabapentin 100 MG Cap PO SCH ×2 (07:46→19:29)
[2021-01-16] MEDS: methylPREDNISolone Sodium Succinate 125 MG/2 ML SDV IVPUSH SCH ×2 (07:46→19:33)
[2021-01-16] MEDS: Potassium Chloride 10 MEQ Tab.ER PO SCH (07:46)
[2021-01-16] MEDS: Clopidogrel 75 MG Tab PO SCH (07:46)
[2021-01-16] MEDS: levETIRAcetam 500 MG Tab PO SCH ×2 (07:46→19:28)
[2021-01-16] MEDS: Tiotropium Inhaler 18 MCG Inhalation Powder Cap Kit of 5 INH SCH (07:47)
[2021-01-16] MEDS: Albuterol/Ipratropium 3.0-0.5 MG/3 ML Neb Soln NEB SCH ×3 (07:47→19:41)
[2021-01-16] MEDS: Formoterol/Mometasone 200-5 MCG 8.8 GM Inhaler IH SCH ×2 (07:47→19:41)
[2021-01-16] MEDS: Polyethylene Glycol 3350 Powder 17 GM Packet PO SCH (07:47)
[2021-01-16] MEDS: Enoxaparin 40 MG/0.4 ML Syringe SUBCUT SCH (13:04)
[2021-01-16] MEDS: Levofloxacin/Dextrose 5%-Water 750 MG in Premix Bag 1 BAG IV SCH (16:38)
[2021-01-16] MEDS: Sertraline 25 MG Tab PO SCH (19:30)
[2021-01-16] MEDS: tiZANidine 4 MG Tab PO SCH (19:30)
--- NOTE | 2021-01-16 19:57 | PCM.PN ---
- General Info Date of Service: 01/16/21 Admission Dx/Problem (Free Text): Pneumonia Subjective Update: Damion is sitting up in bed, eating breakfast. States does get winded yet with activity, even with eating. Feels labored with ambulation but is tolerating with cane, standby assist. He was able to be weaned off oxygen today. Still notes wheezing much of the time. Cough is tight, productive at times. Afebrile. Functional Status: Reports: Pain Controlled, Tolerating Diet, Ambulating - Review of Systems General: Reports: Fever, Weakness, Fatigue, Malaise HEENT: Denies: Ear Pain, Sinus Congestion, Sore Throat Pulmonary: Reports: Shortness of Breath, Cough, Sputum, Wheezing Cardiovascular: Denies: Chest Pain, Edema, Lightheadedness Gastrointestinal: Denies: Abdominal Pain, Nausea, Vomiting Genitourinary: Reports: No Symptoms Musculoskeletal: Reports: No Symptoms Skin: Reports: No Symptoms Neurological: Reports: Pre-Existing Deficit - Patient Data Vitals - Most Recent: Last Vital Signs Temp 98.7 F 01/16/21 16:00 Pulse 81 01/16/21 16:00 Resp 18 01/16/21 16:00 BP 137/88 01/16/21 16:00 Pulse Ox 96 01/16/21 16:00 Weight - Most Recent: 185 lb 6.4 oz Lab Results Last 24 Hours: Laboratory Results - last 24 hr 01/16/21 01/16/21 Range/Units 05:00 05:00 WBC 15.2 H (4.0-11.0) 10^3/uL RBC 4.67 (4.50-6.00) x10^6/uL Hgb 13.8 L (14.0-18.0) g/dL Hct 41.0 L (42.0-52.0) % MCV 87.8 (83.0-97.0) fL MCH 29.6 (27.0-32.0) pg MCHC 33.7 (32.0-36.0) g/dL RDW Coeff of Felecia 13.2 (11.0-15.0) % Plt Count 224 (150-400) 10^3/uL Immature Gran % (Auto) 1.2 (0.0-4.9) % Neut % (Auto) 87.3 H (41-71) % Lymph % (Auto) 6.1 L (24-44) % [place] % (Auto) 5.3 (0-10) % Eos % (Auto) 0.0 (0-6) % Baso % (Auto) 0.1 (0-1) % Neut # (Auto) 13.31 H (1.80-8.00) x10^3/uL Lymph # (Auto) 0.93 (0.60-5.00) 10^3/uL [place] # (Auto) 0.80 (0.00-1.50) 10^3/uL Eos # (Auto) 0.00 (0.00-1.50) 10^3/uL Baso # (Auto) 0.01 (0.00-0.50) 10^3/uL Immature Gran # (Auto) 0.18 (0.00-0.49) 10^3/uL Sodium 143 (136-145) mEq/L Potassium 4.2 (3.5-5.0) mEq/L Chloride 106 (98-106) mEq/L Carbon Dioxide 29 (21-32) mmol/L BUN 24 H (7-18) mg/dL Creatinine 1.1 (0.7-1.3) mg/dL Est Cr Clr Drug Dosing 64.52 mL/min Estimated GFR (MDRD) > 60 (>=60) mL/min Glucose 196 H (75-99) mg/dL Calcium 8.3 L (8.4-10.1) mg/dL C-Reactive Protein 1.0 H (0.2-0.8) mg/dL Antoine Results Last 24 Hours: Microbiology 01/13/21 14:50 Aerobic Blood Culture - Preliminary Blood - Venous - Lab Draw NO GROWTH AFTER 3 DAYS Anaerobic Blood Culture - Preliminary NO GROWTH AFTER 3 DAYS 01/13/21 14:45 Aerobic Blood Culture - Preliminary Blood - Venous NO GROWTH AFTER 3 DAYS Anaerobic Blood Culture - Preliminary NO GROWTH AFTER 3 DAYS 01/13/21 15:20 Gram Stain - Final Sputum - Expectorated Sputum Culture - Final Yeast Isolated Med Orders - Current: Current Medications Acetaminophen (Acetaminophen 325 Mg Tab) 650 mg PO Q4H PRN PRN Reason: Pain (Mild 1-3)/fever Albuterol (Albuterol 8 Gm Inhaler) 0 gm INH Q4H PRN PRN Reason: Shortness of Breath Albuterol/Ipratropium (Albuterol/Ipratropium 3.0-0.5 Mg/3 Ml Neb Soln) 3 ml NEB Q4H PRN PRN Reason: Shortness Of Breath/wheezing Last Admin: 01/14/21 08:16 Dose: 3 ml Documented by: Albuterol/Ipratropium (Albuterol/Ipratropium 3.0-0.5 Mg/3 Ml Neb Soln) 3 ml NEB TIDRT [facility] Last Admin: 01/16/21 19:41 Dose: 3 ml Documented by: Atorvastatin Calcium (Atorvastatin 20 Mg Tab) 40 mg PO DAILY [facility] Last Admin: 01/16/21 07:45 Dose: 40 mg Documented by: Baclofen (Baclofen 10 Mg Tab) 5 mg PO BID [facility] Last Admin: 01/16/21 19:29 Dose: 5 mg Documented by: Clopidogrel Bisulfate (Clopidogrel 75 Mg Tab) 75 mg PO DAILY [facility] Last Admin: 01/16/21 07:46 Dose: 75 mg Documented by: Enoxaparin Sodium (Enoxaparin 40 Mg/0.4 Ml Syringe) 40 mg SUBCUT Q24H [facility] Last Admin: 01/16/21 13:04 Dose: 40 mg Documented by: Fluconazole (Fluconazole 100 Mg Tab) 100 mg PO DAILY [facility] Gabapentin (Gabapentin 100 Mg Cap) 200 mg PO BID [facility] Last Admin: 01/16/21 19:29 Dose: 200 mg Documented by: Levofloxacin/Dextrose 750 mg/ (Premix) 150 mls @ 100 mls/hr IV Q24H [facility] Last Admin: 01/16/21 16:38 Dose: 100 mls/hr Documented by: Ibuprofen (Ibuprofen 200 Mg Tab) 600 mg PO Q6H PRN PRN Reason: Pain (mild 1-3) Levetiracetam (Levetiracetam 500 Mg Tab) 500 mg PO BID [facility] Last Admin: 01/16/21 19:28 Dose: 500 mg Documented by: Methylprednisolone Sodium Succinate (Methylprednisolone Sodium Succinate 125 Mg/2 Ml Sdv) 62.5 mg IVPUSH Q12H [facility] Last Admin: 01/16/21 19:33 Dose: 62.5 mg Documented by: Mometasone Furoate/Formoterol Fumar (Formoterol/Mometasone 200-5 Mcg 8.8 Gm Inhaler) 2 puff IH BID [facility] Last Admin: 01/16/21 19:41 Dose: 2 inhalation Documented by: Ondansetron HCl (Ondansetron 4 Mg/2 Ml Sdv) 4 mg IV Q6H PRN PRN Reason: Nausea/Vomiting Pantoprazole Sodium (Pantoprazole 40 Mg Tab.Cr) 40 mg PO ACBREAKFAST [facility] Last Admin: 01/16/21 06:09 Dose: 40 mg Documented by: Polyethylene Glycol (Polyethylene Glycol 3350 Powder 17 Gm Packet) 8 gm PO DAILY [facility] Last Admin: 01/16/21 07:47 Dose: Not Given Documented by: Potassium Chloride (Potassium Chloride 10 Meq Tab.Er) 10 meq PO DAILY [facility] Last Admin: 01/16/21 07:46 Dose: 10 meq Documented by: Sertraline HCl (Sertraline 25 Mg Tab) 75 mg PO BEDTIME [facility] Last Admin: 01/16/21 19:30 Dose: 75 mg Documented by: Tiotropium [place] (Tiotropium Inhaler 18 Mcg Inhalation Powder Cap Kit Of 5) 18 mcg INH DAILY [facility] Last Admin: 01/16/21 07:47 Dose: 18 mcg Documented by: Tizanidine HCl (Tizanidine 4 Mg Tab) 4 mg PO BEDTIME [facility] Last Admin: 01/16/21 19:30 Dose: 4 mg Documented by: Tramadol HCl (Tramadol 50 Mg Tab) 50 mg PO BID PRN PRN Reason: Pain Discontinued Medications Levofloxacin/Dextrose (Levaquin In D5w 750 Mg/150 Ml) Confirm Administered Dose 150 mls @ as directed IV .STK-MED ONE Stop: 01/15/21 16:08 Last Admin: 01/15/21 15:48 Dose: Not Given Documented by: Methylprednisolone Sodium Succinate (Methylprednisolone Sodium Succinate 125 Mg /2 Ml Sdv) 62.5 mg IVPUSH Q12H [facility] Last Admin: 01/13/21 16:48 Dose: 62.5 mg Documented by: - Exam General: Alert, Oriented HEENT: Mucous Membr. Moist/[place] Neck: Supple Lungs: Wheezing Cardiovascular: Regular Rate, Regular Rhythm GI/Abdominal Exam: Normal Bowel Sounds, Soft, Non-Tender Extremities: Normal Inspection, No Pedal Edema Skin: Warm Neurological: No New Focal Deficit - Patient Data Lab Results Last 24 hrs: Laboratory Results - last 24 hr 10/20/21 10/20/21 Range/Units 05:00 05:00 WBC 15.2 H (4.0-11.0) 10^3/uL RBC 4.67 (4.50-6.00) x10^6/uL Hgb 13.8 L (14.0-18.0) g/dL Hct 41.0 L (42.0-52.0) % MCV 87.8 (83.0-97.0) fL MCH 29.6 (27.0-32.0) pg MCHC 33.7 (32.0-36.0) g/dL RDW Coeff of Felecia 13.2 (11.0-15.0) % Plt Count 224 (150-400) 10^3/uL Immature Gran % (Auto) 1.2 (0.0-4.9) % Neut % (Auto) 87.3 H (41-71) % Lymph % (Auto) 6.1 L (24-44) % [place] % (Auto) 5.3 (0-10) % Eos % (Auto) 0.0 (0-6) % Baso % (Auto) 0.1 (0-1) % Neut # (Auto) 13.31 H (1.80-8.00) x10^3/uL Lymph # (Auto) 0.93 (0.60-5.00) 10^3/uL [place] # (Auto) 0.80 (0.00-1.50) 10^3/uL Eos # (Auto) 0.00 (0.00-1.50) 10^3/uL Baso # (Auto) 0.01 (0.00-0.50) 10^3/uL Immature Gran # (Auto) 0.18 (0.00-0.49) 10^3/uL Sodium 143 (136-145) mEq/L Potassium 4.2 (3.5-5.0) mEq/L Chloride 106 (98-106) mEq/L Carbon Dioxide 29 (21-32) mmol/L BUN 24 H (7-18) mg/dL Creatinine 1.1 (0.7-1.3) mg/dL Est Cr Clr Drug Dosing 64.52 mL/min Estimated GFR (MDRD) > 60 (>=60) mL/min Glucose 196 H (75-99) mg/dL Calcium 8.3 L (8.4-10.1) mg/dL C-Reactive Protein 1.0 H (0.2-0.8) mg/dL Result Diagrams: 01/16/21 05:00 01/16/21 05:00 Antoine Results Last 24 hrs: Microbiology 01/13/21 14:50 Aerobic Blood Culture - Preliminary Blood - Venous - Lab Draw NO GROWTH AFTER 3 DAYS Anaerobic Blood Culture - Preliminary NO GROWTH AFTER 3 DAYS 01/13/21 14:45 Aerobic Blood Culture - Preliminary Blood - Venous NO GROWTH AFTER 3 DAYS Anaerobic Blood Culture - Preliminary NO GROWTH AFTER 3 DAYS 01/13/21 15:20 Gram Stain - Final Sputum - Expectorated Sputum Culture - Final Yeast Isolated Sepsis Event Note - Evaluation Sepsis Screening Result: No Definite Risk - Focused Exam Vital Signs: Vital Signs Temp Pulse Resp BP Pulse Ox 01/16/21 16:00 98.7 F 81 18 137/88 96 01/16/21 12:00 98.8 F 78 18 122/67 95 01/16/21 08:00 97.8 F 80 18 136/69 94 L - Problem List & Annotations (1) Pneumonia SNOMED Code(s): 918374473 Code(s): J18.9 - PNEUMONIA, UNSPECIFIED ORGANISM Status: Acute Priority: High Current Visit: Yes Qualifiers: Pneumonia type: due to unspecified organism Laterality: bilateral Lung location: lower lobe of lung Qualified Code(s): J18.9 - Pneumonia, unspecified organism - Problem List Review Problem List Initiated/Reviewed/Updated: Yes - My Orders Last 24 Hours: My Active Orders 01/16/21 20:00 Fluconazole [Diflucan] 100 mg PO DAILY - Assessment Assessment:: CAP, bilateral lower lobe - Plan Plan:: 12/1820 1005am This patient is a pleasant patient admitted yesterday for pneumonia. Patient today reports he is breathing better and moving more air. Patient reports coughing up a lot of mucous. Awaiting Sensitivity report for sputum culture. The patient reports feeling congested in his chest. Patient is on oxygen 3L [place] at 95%. Does not appear to distressed. He is able to converse in complete sentences. Patient labs are unremarkable and not much changed from yesterday. Labs today are wbc 12.8, CH 107, BUN 25, CRP 5.4. Will continue with nebs and abx. Will continue admit. 01/15/21 10:28 Damion appears to be doing better today. Continues to have adventitious lung sounds. Waiting for sensitivity report. Patient currently on 2 liter per nasal canula, down from 3 liters yesterday. He shows no sign of distress. Will discuss with Dr. Hunter current antibiotics as we wait for the sensitivity report. Labs continue to show an elevated WBC, slightly up from yesterday along with CRP. Will order physical therapy for strengthening and spirometry q2h while awake. 01/16/2021 Patient slowly feeling better. Weaned off oxygen today. Lung sounds show ongoing expiratory wheezing. Sputum culture shows yeast. WBC elevated at 15.2, likely increase related to steroids. CRP improved to 1.0. Other labs unremarkable. Will continue with IV antibiotics and steroids. Repeat labs. Start Diflucan daily. Possible discharge home tomorrow.
[2021-01-16] MEDS: Fluconazole 100 MG Tab PO SCH (20:39)
[2021-01-17] MEDS: Pantoprazole 40 MG Tab.CR PO SCH (06:11)
[2021-01-17] MEDS: methylPREDNISolone Sodium Succinate 125 MG/2 ML SDV IVPUSH SCH (07:37)
[2021-01-17] MEDS: Albuterol/Ipratropium 3.0-0.5 MG/3 ML Neb Soln NEB SCH (07:37)
[2021-01-17] MEDS: Gabapentin 100 MG Cap PO SCH (07:37)
[2021-01-17] MEDS: levETIRAcetam 500 MG Tab PO SCH (07:38)
[2021-01-17] MEDS: Clopidogrel 75 MG Tab PO SCH (07:38)
[2021-01-17] MEDS: atorvaSTATin 20 MG Tab PO SCH (07:38)
[2021-01-17] MEDS: Polyethylene Glycol 3350 Powder 17 GM Packet PO SCH (07:38)
[2021-01-17] MEDS: Baclofen 10 MG Tab PO SCH (07:38)
[2021-01-17] MEDS: Potassium Chloride 10 MEQ Tab.ER PO SCH (07:38)
[2021-01-17] MEDS: Fluconazole 100 MG Tab PO SCH (07:38)
[2021-01-17] MEDS: Formoterol/Mometasone 200-5 MCG 8.8 GM Inhaler IH SCH (07:38)
[2021-01-17] MEDS: Tiotropium Inhaler 18 MCG Inhalation Powder Cap Kit of 5 INH SCH (07:39)
[2021-01-17 07:42] VITALS: BP 139/76; PULSE 70
[2021-01-17] MEDS ORDERED: Levofloxacin/Dextrose 5%-Water 750 MG in Premix Bag 1 BAG IV SCH (10:30)
--- NOTE | 2021-01-17 11:24 | DISCH ---
REASON FOR HOSPITALIZATION: Admission diagnosis: Pneumonia. DISCHARGE DIAGNOSIS: 1. PNEUMONIA. 2. SEIZURE DISORDER. 3. PRIOR CEREBROVASCULAR ACCIDENT. 4. CHRONIC OBSTRUCTIVE PULMONARY DISEASE. HISTORY: The patient is a 70-year-old male with a known history of COPD. He had been seen in the office earlier in the week for increase in URI symptoms with wheezing. He was given Zithromax and prednisone, told to start his nebulizer, and he was doing fine for a few days and he started having increased shortness of breath, wheezing. Pedro Pablo Carmona evaluated him in our emergency room and he ultimately felt he needed to be admitted for pneumonia. He was started on IV Levaquin and methylprednisolone along with routine pulmonary nebs. HOSPITAL COURSE: The patient did very well while here. He essentially remained afebrile during his stay. Had an elevated white count on admit and that is from the steroids, but otherwise has been afebrile. His CRP is trending down. He did require O2 at 2 L per nasal cannula on admission, and he has been weaned off oxygen and he saturating in the mid 90s. Clinically, he appears much better and feels comfortable going home. His is present at the time of his discharge and they understand the need for further antibiotics orally for another week. He will go home on oral prednisone and nebulizers. He did grow out some yeast in his sputum culture and he will go home on another 7 days of oral Diflucan. No identifiable pulmonary bacterial pathogen was found on sputum culture. COMPLICATIONS: During his stay were none. CONSULTATIONS: None. DISPOSITION: Discharged home with followup instructions in 1 week's time. DAWIT /[id number]
== END 2021-01-17 10:45 | disposition home or self-care (01) | DRG 194 ==
LOC: CC.ED 14:09 → UNDOADMIN 15:33 → CC.MS 15:33
PROVIDERS: ADMIT Nurse Practitioner; ATTEND Family Medicine
DX: J18.9 Pneumonia, unspecified organism (principal); R09.02 Hypoxemia; I69.954 Hemiplegia and hemiparesis following unspecified cerebrovascular disease affecting left non-dominant side; J45.909 Unspecified asthma, uncomplicated; G40.909 Epilepsy, unspecified, not intractable, without status epilepticus; J44.9 Chronic obstructive pulmonary disease, unspecified; Z88.1 Allergy status to other antibiotic agents; I69.354 Hemiplegia and hemiparesis following cerebral infarction affecting left non-dominant side; Z86.718 Personal history of other venous thrombosis and embolism; Z79.899 Other long term (current) drug therapy; Z79.02 Long term (current) use of antithrombotics/antiplatelets; H91.90 Unspecified hearing loss, unspecified ear; Z87.01 Personal history of pneumonia (recurrent); K21.9 Gastro-esophageal reflux disease without esophagitis; G89.29 Other chronic pain; M54.2 Cervicalgia; Z86.14 Personal history of Methicillin resistant Staphylococcus aureus infection; Z98.49 Cataract extraction status, unspecified eye; Z20.822 Contact with and (suspected) exposure to COVID-19
CPT/HCPCS: 0240U; 36415; 71046; 80048; 80053; 82550; 83605; 83615; 84484; 85025; 86140; 87040; 87070; 87205; 93005; 94640; 97116-GP; 97161-GP; 99285-25; A9270-GY; J1650; J1956; J2930; J7620-GY

== ENCOUNTER 2021-11-28 15:08 | Observation (INO) | payer MEDICARE, OTHER, MEDICAID ==
[2021-11-28 15:39] LABS: CHLORIDE,CL 105 mEq/L (98-106); ESTIMATED GFR 72 mL/min (>=60); SODIUM,NA 141 mEq/L (136-145)
[2021-11-28] MEDS ORDERED: traMADol 50 MG Tab PO PRN (16:09)
[2021-11-28] MEDS ORDERED: Ondansetron 4 MG Tab.DIS PO PRN (16:09)
[2021-11-28] MEDS ORDERED: Albuterol/Ipratropium 3.0-0.5 MG/3 ML Neb Soln NEB PRN (16:09)
[2021-11-28] MEDS ORDERED: Albuterol 8 GM Inhaler INH PRN (16:09)
[2021-11-28] MEDS ORDERED: Acetaminophen 325 MG Tab PO PRN (16:34)
[2021-11-28] MEDS: BUDESONIDE INH SCH (19:45)
[2021-11-28] MEDS: FORMOTEROL INH SCH (19:45)
[2021-11-28] MEDS: LEVETIRACETAM 500 MG PO SCH (19:47)
[2021-11-28] MEDS: Gabapentin 100 MG Cap **PTOM PO SCH (19:55)
[2021-11-28] MEDS: BACLOFEN 10 MG PO SCH (19:55)
[2021-11-28] MEDS ORDERED: SERTRALINE HCL 50 MG PO SCH (20:00)
[2021-11-29] MEDS ORDERED: Pantoprazole 40 MG Tab.CR **PTOM PO SCH (07:00)
[2021-11-29] MEDS: LEVETIRACETAM 500 MG PO SCH (07:49)
[2021-11-29] MEDS: BUDESONIDE INH SCH (07:49)
[2021-11-29] MEDS: FORMOTEROL INH SCH (07:49)
[2021-11-29] MEDS: BACLOFEN 10 MG PO SCH (07:50)
[2021-11-29] MEDS: Gabapentin 100 MG Cap **PTOM PO SCH (07:54)
[2021-11-29] MEDS: Polyethylene Glycol 3350 Powder 17 GM Packet PO SCH ×2 (07:56→08:00)
[2021-11-29] MEDS ORDERED: Potassium Chloride 10 MEQ Tab.ER **PTOM PO SCH (08:00)
[2021-11-29] MEDS ORDERED: Clopidogrel 75 MG Tab **PTOM PO SCH (08:00)
[2021-11-29] MEDS ORDERED: ATORVASTATIN 40 MG PO SCH (08:00)
[2021-11-29] MEDS ORDERED: TIOTROPIUM 18 MCG INH SCH (08:00)
[2021-11-29 09:50] VITALS: BP 102/66; PULSE 51
[2021-11-29] MEDS ORDERED: Enoxaparin 40 MG/0.4 ML Syringe SUBCUT SCH (16:00)
== END 2021-11-29 10:45 | disposition home or self-care (01) ==
LOC: CC.FCMC 15:08 → CC.MS 15:27 → UNDOADMOB 15:27 → CC.MS 16:34
PROVIDERS: ADMIT Family Medicine; ATTEND Nurse Practitioner Family
DX: G45.9 Transient cerebral ischemic attack, unspecified (principal); K21.9 Gastro-esophageal reflux disease without esophagitis; Z98.890 Other specified postprocedural states; Z86.73 Personal history of transient ischemic attack (TIA), and cerebral infarction without residual deficits; Z88.8 Allergy status to other drugs, medicaments and biological substances; Z79.899 Other long term (current) drug therapy
CPT/HCPCS: 36415; 70450; 71046; 80048; 80053; 80177; 85025; 93005; 94640; A9270-GY; G0378

== ENCOUNTER 2021-12-25 08:45 | Emergency (ER) | payer MEDICARE, OTHER, MEDICAID ==
[2021-12-25] MEDS ORDERED: Ondansetron 4 MG/2 ML SDV IVPUSH PRN (09:07)
[2021-12-25] MEDS ORDERED: Sodium Chloride 0.9% 10 ML Syringe FLUSH PRN (09:07)
[2021-12-25 09:18] VITALS: BP 134/88; PULSE 91
[2021-12-25] MEDS ORDERED: Acetaminophen 325 MG Tab PO ONE (10:16)
== END 2021-12-25 10:45 | disposition home or self-care (01) ==
LOC: CC.ED 08:45
DX: K21.9 Gastro-esophageal reflux disease without esophagitis (principal); Z88.1 Allergy status to other antibiotic agents; Z86.73 Personal history of transient ischemic attack (TIA), and cerebral infarction without residual deficits; Z79.899 Other long term (current) drug therapy
CPT/HCPCS: 36415; 71045; 80053; 83690; 83735; 85025; 96374; 99284; 99284-25; A9270-GY; J2405

== ENCOUNTER 2021-12-25 15:18 | Observation (INO) | payer MEDICARE, OTHER, MEDICAID ==
[2021-12-25] MEDS ORDERED: Albuterol/Ipratropium 3.0-0.5 MG/3 ML Neb Soln INH ONE (15:30)
[2021-12-25] MEDS ORDERED: Albuterol 0.083% 2.5 MG/3 ML Neb Soln NEB ONE (16:16)
[2021-12-25] MEDS ORDERED: predniSONE 20 MG Tab PO STA (16:37)
[2021-12-25] MEDS ORDERED: Docusate Sodium 100 MG Cap PO PRN (18:36)
[2021-12-25] MEDS ORDERED: Magnesium Hydroxide 400 MG/5 ML Susp 30 ML Cup PO PRN (18:36)
[2021-12-25] MEDS ORDERED: Ondansetron 4 MG Tab.DIS PO PRN (18:43)
[2021-12-25] MEDS ORDERED: IPRATROPIUM NEB PRN (18:43)
[2021-12-25] MEDS ORDERED: ALBUTEROL INH PRN (18:43)
[2021-12-25] MEDS ORDERED: [UNRECOGNIZED DRUG - OTHER] NEB PRN (18:43)
[2021-12-25] MEDS ORDERED: TRAMADOL HCL 50 MG PO PRN (18:43)
[2021-12-25] MEDS ORDERED: ALBUTEROL NEB PRN (18:43)
[2021-12-25] MEDS ORDERED: Non-Formulary Medication 1 Each (Acetaminophen [Tylenol] 325 MG Tablet) PO PRN (18:43)
[2021-12-25] MEDS ORDERED: tiZANidine 4 MG Tab PO SCH (20:00)
[2021-12-25] MEDS: BACLOFEN 10 MG PO SCH (20:54)
[2021-12-25] MEDS: GABAPENTIN 100 MG PO SCH (20:54)
[2021-12-25] MEDS: LEVETIRACETAM 500 MG PO SCH (20:54)
[2021-12-25] MEDS: SERTRALINE 50 MG PO SCH (20:55)
[2021-12-25] MEDS: BUDESONIDE INH SCH (20:55)
[2021-12-25] MEDS: FORMOTEROL INH SCH (20:55)
[2021-12-26] MEDS: Pantoprazole 40 MG Tab.CR *PT OWN MED PO SCH (06:56)
[2021-12-26] MEDS: Acetaminophen 325 MG Tab PO PRN ×2 (08:11→16:12)
[2021-12-26] MEDS: ATORVASTATIN 40 MG PO SCH (08:46)
[2021-12-26] MEDS: Clopidogrel 75 MG Tab **PTOM PO SCH (08:48)
[2021-12-26] MEDS: TIOTROPIUM 18 MCG INH SCH (08:49)
[2021-12-26] MEDS: GABAPENTIN 100 MG PO SCH ×2 (08:57→19:50)
[2021-12-26] MEDS: BUDESONIDE INH SCH ×2 (09:00→19:48)
[2021-12-26] MEDS: FORMOTEROL INH SCH ×2 (09:00→19:48)
[2021-12-26] MEDS: LEVETIRACETAM 500 MG PO SCH ×2 (09:01→19:51)
[2021-12-26] MEDS: BACLOFEN 10 MG PO SCH ×2 (09:01→19:49)
[2021-12-26] MEDS: Polyethylene Glycol 3350 Powder 17 GM Packet PO SCH (10:00)
[2021-12-26] MEDS: SERTRALINE 50 MG PO SCH (19:51)
[2021-12-27] MEDS: Pantoprazole 40 MG Tab.CR *PT OWN MED PO SCH (06:59)
[2021-12-27] MEDS: ATORVASTATIN 40 MG PO SCH (07:42)
[2021-12-27] MEDS: LEVETIRACETAM 500 MG PO SCH (07:43)
[2021-12-27] MEDS: BACLOFEN 10 MG PO SCH (07:44)
[2021-12-27] MEDS: Polyethylene Glycol 3350 Powder 17 GM Packet PO SCH (07:47)
[2021-12-27] MEDS: GABAPENTIN 100 MG PO SCH (07:47)
[2021-12-27] MEDS: FORMOTEROL INH SCH (07:48)
[2021-12-27] MEDS: BUDESONIDE INH SCH (07:48)
[2021-12-27] MEDS: Clopidogrel 75 MG Tab **PTOM PO SCH (07:48)
[2021-12-27] MEDS: TIOTROPIUM 18 MCG INH SCH (07:49)
[2021-12-27] MEDS: Acetaminophen 325 MG Tab PO PRN (07:50)
[2021-12-27 13:24] VITALS: BP 124/63; PULSE 74
== END 2021-12-27 13:05 | disposition home or self-care (01) ==
LOC: CC.ACU 15:18 → UNDOADMOB 17:40 → CC.MS 17:40
PROVIDERS: ADMIT Nurse Practitioner Family; ATTEND Nurse Practitioner Family
DX: R53.1 Weakness (principal); K21.9 Gastro-esophageal reflux disease without esophagitis; R11.0 Nausea; J45.909 Unspecified asthma, uncomplicated; Z86.73 Personal history of transient ischemic attack (TIA), and cerebral infarction without residual deficits; Z88.8 Allergy status to other drugs, medicaments and biological substances; Z79.899 Other long term (current) drug therapy; Z98.890 Other specified postprocedural states; Z20.822 Contact with and (suspected) exposure to COVID-19
CPT/HCPCS: 71046; 99217; 99220; 99225; A9270-GY; G0378; J7512; J7613-GY; J7620-GY; U0002

== ENCOUNTER 2023-02-15 09:00 | Emergency (ER) | payer MEDICARE, OTHER, MEDICAID ==
[2023-02-15 09:24] LABS: BASOPHILS ABSOLUTE AUTO 0.04 10^3/uL (0.00-0.50); BASOPHILS PERCENT AUTO 0.6 % (0-1); EOSINOPHILS ABSOLUTE AUTO 0.27 10^3/uL (0.00-1.50); EOSINOPHILS PERCENT AUTO 3.8 % (0-6); HEMATOCRIT 44.3 % (42.0-52.0); HEMOGLOBIN 14.6 g/dL (14.0-18.0); IMMATURE GRAN ABSOLUTE AUTO 0.02 10^3/uL (0.00-0.49); IMMATURE GRAN PERCENT AUTO 0.3 % (0.0-4.9); LYMPHOCYTES ABSOLUTE AUTO 1.23 10^3/uL (0.60-5.00); LYMPHOCYTES PERCENT AUTO 17.1 % (24-44); MEAN CORPUSCULAR HEMOGLOBIN 29.7 pg (27.0-32.0); MEAN CORPUSCULAR VOLUME 90.2 fL (83.0-97.0); MONOCYTES ABSOLUTE AUTO 0.68 10^3/uL (0.00-1.50); MONOCYTES PERCENT AUTO 9.5 % (0-10); NEUTROPHILS ABSOLUTE AUTO 4.95 x10^3/uL (1.80-8.00); NEUTROPHILS PERCENT AUTO 68.7 % (41-71); PLATELET COUNT,PLT 173 10^3/uL (150-400); RED BLOOD CELL COUNT 4.91 x10^6/uL (4.50-6.00); WHITE BLOOD CELL COUNT,WBC 7.2 10^3/uL (4.0-11.0)
[2023-02-15 09:39] LABS: INR 1.04 (0.92-1.18); PROTHROMBIN TIME 10.7 SEC (9.3-11.3)
[2023-02-15 09:40] LABS: ALBUMIN 3.5 g/dL (3.4-5.0); BILIRUBIN TOTAL 0.7 mg/dL (0.0-1.0); C-REACTIVE PROTEIN 0.3 mg/dL (<=0.30); CALCIUM 8.6 mg/dL (8.4-10.1); EST CRCL DRUG DOSING (CG) 68.94 mL/min; POTASSIUM,K 3.4 mEq/L (3.5-5.0); PROTEIN TOTAL,TP 6.5 g/dL (6.4-8.2)
[2023-02-15 10:52] VITALS: BP 137/80; PULSE 80
== END 2023-02-15 10:45 | disposition home or self-care (01) ==
LOC: CC.ED 09:00
DX: G45.9 Transient cerebral ischemic attack, unspecified (principal); J45.909 Unspecified asthma, uncomplicated; K21.9 Gastro-esophageal reflux disease without esophagitis; Z86.73 Personal history of transient ischemic attack (TIA), and cerebral infarction without residual deficits; Z79.02 Long term (current) use of antithrombotics/antiplatelets; Z79.899 Other long term (current) drug therapy; Z88.1 Allergy status to other antibiotic agents
CPT/HCPCS: 36415; 70450; 71045; 80053; 84484; 85025; 85610; 85730; 86140; 93005; 93010; 99284; 99285